=== PATIENT | female | born 1945 | race Caucasian/White ===

== ENCOUNTER 2019-03-09 16:02 | Inpatient (IN) | payer MEDICARE ==
[~2019-03-09] VITALS: Ht 165.1 cm; Wt 82.2 kg
--- NOTE | 2019-03-09 16:20 | PHYS DOC ---
Past History Past Medical History: Anemia, Anxiety, Dementia, Depression, UTI, Other (JASON MARTINEZ MD) Adult General Chief Complaint Chief Complaint: PSYCH EVALUATION [facility] HPI Patient is a 73-year-old female who presents from nursing facility with report of behavioral disturbance. Patient has been accepted to [facility] and is just here for medical clearance. Patient denies any complaints, denying chest pain, shortness of breath, abdominal pain, nausea, vomiting, diarrhea or headache.[] (JENNY MURRY Jr., DO) Review of Systems Review of Systems Constitutional: Denies fever or chills [] Respiratory: Denies cough or shortness of breath [] Cardiovascular: No additional information not addressed in HPI [] Musculoskeletal: Denies back pain or joint pain [] Integument: Denies rash or skin lesions [] Neurologic: Denies headache, focal weakness or sensory changes [] All other systems were reviewed and found to be within normal limits, except as documented in this note. (JENNY MURRY Jr., DO) Physical Exam Physical Exam Constitutional: Well developed, well nourished, no acute distress, non-toxic appearance. [] HENT: Normocephalic, atraumatic, bilateral external ears normal, oropharynx moist, no oral exudates, nose normal. [] Eyes: PERRLA, EOMI, conjunctiva normal, no discharge. [] Neck: Normal range of motion, no tenderness, supple, no stridor. [] Cardiovascular:Heart rate regular rhythm, no murmur [] Lungs & Thorax: Bilateral breath sounds clear to auscultation [] Abdomen: Bowel sounds normal, soft, no tenderness. [] Skin: Warm, dry, no erythema, no rash. [] Extremities: No tenderness, no cyanosis, no clubbing, ROM intact, no edema. [] Neurologic: Alert and oriented X 3, no focal deficits noted. [] (JENNY MURRY Jr., DO) EKG EKG [] (JENNY MURRY Jr., DO) EKG My interpretation EKG shows a sinus rhythm at 68 bpm. Does have premature ventricular contractions. Has left axis. Has an incomplete right bundle branch block. But no findings acute STEMI with contralateral changes. (JASON MARTINEZ MD) Radiology/Procedures Radiology/Procedures [] (JENNY MURRY Jr., DO) Course & Med Decision Making Course & Med Decision Making Pertinent Labs and Imaging studies reviewed. (See chart for details) Patient moved to room upon arrival and bloodwork drawn for mental health clearance., A UA along with drug screen are pending and patient is being signed out to Dr. Martinez at 6:00 PM. (JENNY MURRY Jr., DO) Course & Med Decision Making Patient currently interactive and eating dinner. Patient has no complaints. Patient apparently sent to [place] for admission to the [facility] health unit after exacerbation of her behavior disorder. Patient sent from the [facility] in [facility]. Patient has been aggressive with other residents and staff. Patient has become more agitated. Has been refusing meds. Patient reportedly much more difficult to redirect. Insomnia worse. Patient does have history of mood disorder, dementia, insomnia, hypokalemia, falls, anemia, pulmonary embolism and UTIs. Patient reportedly has not had any recent falls. Normally follows with Dr. Mcdaniels. Impression: 1. Mental Status Change 2. Agitation 3. Behavior Disorder 4. Insomnia 5. Anxiety 6. Depression 7. Dementia 8. Possible UTI Pt. admitted to [facility]- Dr. Lockwood with Consult to Dr. Wheat for medical issues. (JASON MARTINEZ MD) Dragon Disclaimer Dragon Disclaimer This electronic medical record was generated, in whole or in part, using a voice recognition dictation system. (JENNY MURRY Jr., DO) Departure Departure: Referrals: DAVID MCDANIELS (PCP) Discharge Summary Visit Information Final Diagnosis Problems Medical Problems: (1) Aggressive behavior Status: Acute (JASON MARTINEZ MD) Brief Hospital Course Allergies Allergies Coded Allergies Type Severity Reaction Last Updated Verified No Known Drug Allergies 03/09/19 No Vital Signs Vital Signs Date Time Temp Pulse Resp B/P (MAP) Pulse Ox O2 Delivery O2 Flow Rate FiO2 03/09/19 20:41 98.3 88 20 151/89 (109) 99 Lab Results Laboratory Tests Test 03/09/19 16:21 03/09/19 18:05 White Blood Count 5.1 x10^3/uL (4.0-11.0) Red Blood Count 3.52 x10^6/uL (3.50-5.40) Hemoglobin 11.2 g/dL (12.0-15.5) Hematocrit 33.3 % (36.0-47.0) Mean Corpuscular Volume 95 fL (79-100) Mean Corpuscular Hemoglobin 32 pg (25-35) Mean Corpuscular Hemoglobin Concent 34 g/dL (31-37) Red Cell Distribution Width 15.6 % (11.5-14.5) Platelet Count 174 x10^3/uL (140-400) Neutrophils (%) (Auto) 69 % (31-73) Lymphocytes (%) (Auto) 21 % (24-48) Monocytes (%) (Auto) 8 % (0-9) Eosinophils (%) (Auto) 2 % (0-3) Basophils (%) (Auto) 1 % (0-3) Neutrophils # (Auto) 3.5 x10^3uL (1.8-7.7) Lymphocytes # (Auto) 1.1 x10^3/uL (1.0-4.8) Monocytes # (Auto) 0.4 x10^3/uL (0.0-1.1) Eosinophils # (Auto) 0.1 x10^3/uL (0.0-0.7) Basophils # (Auto) 0.0 x10^3/uL (0.0-0.2) Sodium Level 143 mmol/L (136-145) Potassium Level 4.1 mmol/L (3.5-5.1) Chloride Level 108 mmol/L (98-107) Carbon Dioxide Level 28 mmol/L (21-32) Anion Gap 7 (6-14) Blood Urea Nitrogen 26 mg/dL (7-20) Creatinine 0.8 mg/dL (0.6-1.0) Estimated GFR (Cockcroft-Gault) 69.9 BUN/Creatinine Ratio 33 (6-20) Glucose Level 106 mg/dL (70-99) Calcium Level 9.8 mg/dL (8.5-10.1) Total Bilirubin 0.3 mg/dL (0.2-1.0) Aspartate Amino Transf (AST/SGOT) 18 U/L (15-37) Alanine Aminotransferase (ALT/SGPT) 20 U/L (14-59) Alkaline Phosphatase 70 U/L (46-116) Total Protein 7.2 g/dL (6.4-8.2) Albumin 3.6 g/dL (3.4-5.0) Albumin/Globulin Ratio 1.0 (1.0-1.7) Ethyl Alcohol Level < 10 mg/dL (0-10) Urine Collection Type Unknown Urine Color Yellow Urine Clarity Hazy Urine pH 6.5 Urine Specific [place] 1.020 Urine Protein Neg (NEG-TRACE) Urine Glucose (UA) Neg mg/dL (NEG) Urine Ketones (Stick) Trace mg/dL (NEG) Urine Blood Trace (NEG) Urine Nitrite Pos (NEG) Urine Bilirubin Neg (NEG) Urine Urobilinogen Dipstick 0.2 mg/dL (0.2 mg/dL) Urine Leukocyte Esterase Neg (NEG) Urine RBC 0 /HPF (0-2) Urine WBC 0 /HPF (0-4) Urine Squamous Epithelial Cells Mod /LPF Urine Bacteria Mod /HPF (0-FEW) Urine Opiates Screen Neg (NEG) Urine Methadone Screen Neg (NEG) Urine Barbiturates Neg (NEG) Urine Phencyclidine Screen Neg (NEG) Urine Amphetamine/Methamphetamine Neg (NEG) Urine Benzodiazepines Screen Neg (NEG) Urine Cocaine Screen Neg (NEG) Urine Cannabinoids Screen Neg (NEG) Urine Ethyl Alcohol Neg (NEG) Brief Hospital Course Ms. Lowery is a 73 old female who presented with mental status change and behavior disorder. Admitted Dr. Lockwood and Consult Dr. Wheat. (JASON MARTINEZ MD) Discharge Information Dischare Medications Current Medications Acetaminophen (Tylenol) 650 mg BID PO Last administered on 03/09/19at 21:05; Start 03/09/19 at 21:00 Lorazepam (Ativan) 0.5 mg PRN Q6HRS PRN PO Mood disorder; Start 03/09/19 at 20:00 Al Hydroxide/Mg Hydroxide (Mylanta Plus Xs) 30 ml PRN Q4HRS PRN PO GERD; Start 03/09/19 at 20:00 Acetaminophen (Tylenol) 325 mg PRN Q8HRS PRN PO MILD PAIN 1-3; Start 03/09/19 at 20:45 Alendronate Sodium (Fosamax) 70 mg WEEKLYAC PO ; Start 03/16/19 at 07:00 Aspirin (Children'S Aspirin) 81 mg DAILY PO ; Start 03/10/19 at 09:00 Bisacodyl (Dulcolax Supp) 10 mg PRN Q12HR PRN [place] CONSTIPATION; Start 03/09/19 at 21:00 Calcium Carbonate/ Glycine (Tums) 500 mg PRN BID PRN PO GERD; Start 03/09/19 at 21:00 Artificial Tears (Refresh Classic) 1 drop PRN Q12HR PRN OU DRY EYE; Start 03/09/19 at 21:00 Citalopram Hydrobromide (CeleXA) 10 mg DAILY PO ; Start 03/10/19 at 09:00 Pantoprazole Sodium (Protonix) 40 mg DAILY PO ; Start 03/10/19 at 09:00 Multivitamins/ Calcium (Thera-M Plus) 1 tab DAILY PO ; Start 03/10/19 at 09:00 Trazodone HCl (Desyrel) 50 mg QHS PO Last administered on 03/09/19at 21:05; Start 03/09/19 at 21:00 Acetaminophen (Tylenol) 650 mg PRN Q6HRS PRN PO PAIN / TEMP; Start 03/09/19 at 22:15; Status UNV Multi-Ingredient Ointment (Analgesic [place]) 1 kevin PRN QID PRN TP MUSCLE PAIN; Start 03/09/19 at 22:15 Al Hydroxide/Mg Hydroxide (Mylanta Plus Xs) 15 ml PRN AFTMEALHC PRN PO DYSPEPSIA; Start 03/09/19 at 22:15; Status UNV Magnesium Hydroxide (Milk Of Magnesia) 2,400 mg PRN QHS PRN PO CONSTIPATION; Start 03/09/19 at 22:15 Levofloxacin (Levaquin) 500 mg DAILY06 PO ; Start 03/10/19 at 06:00; Stop 03/14/19 at 06:00; Status UNV Active Scripts Active Reported Tylenol (Acetaminophen) 325 Mg Tablet 650 Mg PO BID Tylenol (Acetaminophen) 325 Mg Capsule 325 Mg PO PRN Q8HRS PRN Tums (Calcium Carbonate) 300 Mg Tab.chew 500 Mg PO PRN BID PRN Trazodone Hcl 50 Mg Tablet 50 Mg PO QHS Multivitamins (Multivitamin) 1 Each Tablet 1 Each PO DAILY Maalox Maximum Strength Susp (Mag Hydrox/Al Hydrox/Simeth) 355 Ml Oral.susp 30 Ml PO PRN Q4HRS PRN Lansoprazole 30 Mg Capsule.dr 15 Mg PO DAILY Geodon (Ziprasidone Mesylate) 20 Mg Vial 0.5 Ml IM PRN Q6HRS PRN Escitalopram Oxalate 5 Mg Tablet 5 Mg PO DAILY Biscolax (Bisacodyl) 10 Mg Supp.rect 10 Mg RC PRN Q12HR PRN Ativan (Lorazepam) 1 Mg Tablet 0.5 Mg PO PRN Q6HRS PRN Aspirin 81 Mg Tab.chew 81 Mg PO DAILY Artificial Tears Drops (Dextran 70/Hypromellose/Pf) 1 Each Droperette 1 Each OU PRN Q12HR PRN Alendronate Sodium 70 Mg Tablet 70 Mg PO QWE (JASON MARTINEZ MD) Dragon Disclaimer This chart was dictated in whole or in part using Voice Recognition software in a busy, high-work load, and often noisy Emergency Department environment. It may contain unintended and wholly unrecognized errors or omissions. (JASON MARTINEZ MD) JENNY MURRY Jr. DO March 09, 2019 16:20 JASON MARTINEZ MD March 10, 2019 01:48
[2019-03-09 16:33] LABS: BASO % 1 % (0-3); EOS # 0.1 x10^3/uL (0.0-0.7); EOS % 2 % (0-3); HEMATOCRIT 33.3 % (36.0-47.0); HEMOGLOBIN 11.2 g/dL (12.0-15.5); LYMPH # 1.1 x10^3/uL (1.0-4.8); LYMPH % 21 % (24-48); MEAN CORPUSCULAR HEMOGLOBIN 32 pg (25-35); MEAN CORPUSCULAR HGB CONC 34 g/dL (31-37); MEAN CORPUSCULAR VOLUME 95 fL (79-100); MONO # 0.4 x10^3/uL (0.0-1.1); MONO % 8 % (0-9); NEUT # 3.5 x10^3uL (1.8-7.7); NEUT % 69 % (31-73); PLATELET COUNT 174 x10^3/uL (140-400); RED BLOOD COUNT 3.52 x10^6/uL (3.50-5.40); RED CELL DISTRIBUTION WIDTH 15.6 % (11.5-14.5); WHITE BLOOD COUNT 5.1 x10^3/uL (4.0-11.0)
--- NOTE | 2019-03-09 16:33 | EKG ---
[address] [address] Test Date: 2019-03-09 Test Time: 16:32:50 Pat Name: JENNIFER GARCIA Department: Room: Gender: F Director Of Health Care Marketing: CORRIE : 1945 Requested By: JENNY MURRY Order Number: [id number] Reading MD: Stiven Barrett Measurements Intervals [place] Rate: 68 P: 62 MD: 128 QRS: -8 QRSD: 94 T: 59 QT: 408 QTc: 439 Interpretive Statements SINUS RHYTHM VENTRICULAR PREMATURE COMPLEX(ES) LEFTWARD AXIS INCOMPLETE RIGHT BUNDLE BRANCH BLOCK ABNORMAL ECG Electronically Signed On 04-01-2019 12:08:38 CDT by Stiven Barrett
[2019-03-09 16:48] LABS: ALBUMIN 3.6 g/dL (3.4-5.0); CALCIUM 9.8 mg/dL (8.5-10.1); CREATININE 0.8 mg/dL (0.6-1.0); GFR 69.9; POTASSIUM 4.1 mmol/L (3.5-5.1); TOTAL BILIRUBIN 0.3 mg/dL (0.2-1.0); TOTAL PROTEIN 7.2 g/dL (6.4-8.2)
[2019-03-09] MEDS ORDERED: BISA10SU13 RC (18:04)
[2019-03-09] MEDS ORDERED: ESCITALOPRAM OXA5 MG PO (18:04)
[2019-03-09] MEDS ORDERED: LANS30CA PO (18:04)
[2019-03-09] MEDS ORDERED: ACET325T9 PO (18:04)
[2019-03-09] MEDS ORDERED: LORA-254 PO (18:04)
[2019-03-09] MEDS ORDERED: MULT1TAB52 PO (18:04)
[2019-03-09] MEDS ORDERED: ALEN70TA6 PO (18:04)
[2019-03-09] MEDS ORDERED: DEXT1DRO8 OU (18:04)
[2019-03-09] MEDS ORDERED: CALC300T5 PO (18:04)
[2019-03-09] MEDS ORDERED: ZIPR20VI IM (18:04)
[2019-03-09] MEDS ORDERED: MAG355OR12 PO (18:04)
[2019-03-09] MEDS ORDERED: ASPI-630 PO (18:04)
[2019-03-09] MEDS ORDERED: ACET325C5 PO (18:04)
[2019-03-09] MEDS ORDERED: TRAZ-120 PO (18:04)
[2019-03-09 18:34] LABS: AMPHETAMINE/METHAMPHETAMINE NEG (NEG); BARBITURATES NEG (NEG); BENZODIAZEPINES NEG (NEG); CANNABINOIDS NEG (NEG); COCAINE NEG (NEG); METHADONE NEG (NEG); OPIATES NEG (NEG); PHENCYCLIDINE NEG (NEG)
[2019-03-09 18:44] LABS: BACTERIA,URINE MOD /HPF (0-FEW); BILIRUBIN,URINE NEG (NEG); CLARITY,URINE HAZY; COLOR,URINE YELLOW; GLUCOSE,URINE NEG (NEG); NITRITE,URINE POS (NEG); RBC,URINE 0 /HPF (0-2); SQUAMOUS EPITHELIAL CELL,UR MOD /LPF; UROBILINOGEN,URINE 0.2 mg/dL (0.2 mg/dL); WBC,URINE 0 /HPF (0-4)
[2019-03-09] MEDS ORDERED: MAG HYDROX/AL HYDROX/SIMETH 30 ML ORAL.SUSP PO PRN ×2 (20:00→22:15)
[2019-03-09 20:41] VITALS: BP 151/89
[2019-03-09] MEDS ORDERED: ACETAMINOPHEN 325 MG TABLET PO PRN ×2 (20:45→22:15)
[2019-03-09] MEDS ORDERED: CALCIUM CARBONATE 500 MG TAB.CHEW PO PRN (21:00)
[2019-03-09] MEDS ORDERED: BISACODYL 10 MG SUPP.RECT PR PRN (21:00)
[2019-03-09] MEDS ORDERED: POLYVINYL ALCOHOL/POVIDONE/PF OPHTH SOLUTION DROPERETTE. OU PRN (21:00)
[2019-03-09] MEDS: traZODone 50 MG TABLET. PO SCH (21:05)
[2019-03-09] MEDS: ACETAMINOPHEN 325 MG TABLET PO SCH (21:05)
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
[2019-03-09] MEDS ORDERED: METHYL SALICYLATE/MENTHOL TOPICAL OINTMENT 29GM TUBE. TP PRN (22:15)
[2019-03-10 05:59] VITALS: BP 136/80
[2019-03-10] MEDS: levoFLOXacin 500 MG TABLET PO SCH (06:13)
[2019-03-10 07:35] LABS: BASO % 1 % (0-3); EOS # 0.1 x10^3/uL (0.0-0.7); EOS % 2 % (0-3); HEMATOCRIT 33.5 % (36.0-47.0); HEMOGLOBIN 11.4 g/dL (12.0-15.5); LYMPH % 23 % (24-48); MEAN CORPUSCULAR HEMOGLOBIN 32 pg (25-35); MEAN CORPUSCULAR HGB CONC 34 g/dL (31-37); MEAN CORPUSCULAR VOLUME 94 fL (79-100); MONO # 0.3 x10^3/uL (0.0-1.1); MONO % 8 % (0-9); NEUT % 67 % (31-73); PLATELET COUNT 169 x10^3/uL (140-400); RED BLOOD COUNT 3.55 x10^6/uL (3.50-5.40); RED CELL DISTRIBUTION WIDTH 15.1 % (11.5-14.5); WHITE BLOOD COUNT 4.5 x10^3/uL (4.0-11.0)
[2019-03-10 07:40] LABS: ALBUMIN 3.5 g/dL (3.4-5.0); CALCIUM 9.6 mg/dL (8.5-10.1); CREATININE 0.9 mg/dL (0.6-1.0); POTASSIUM 3.6 mmol/L (3.5-5.1); TOTAL BILIRUBIN 0.6 mg/dL (0.2-1.0); TOTAL PROTEIN 7.1 g/dL (6.4-8.2)
[2019-03-10] MEDS: MULTIVITAMIN with MINERAL TABLET. PO SCH (08:08)
[2019-03-10] MEDS: ACETAMINOPHEN 325 MG TABLET PO SCH ×2 (08:08→20:04)
[2019-03-10] MEDS: PANTOPRAZOLE 40 MG TABLET. PO SCH (08:09)
[2019-03-10] MEDS: CITALOPRAM 10 MG TABLET. PO SCH (08:09)
[2019-03-10] MEDS: ASPIRIN 81 MG TAB.CHEW PO SCH (08:09)
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
--- NOTE | 2019-03-10 11:31 | NUR ---
pt was in cafeteria this am upon assessment. pt would not tell me her name and but would just start rambling on about other things that do not make sense. pt was outside this morning before lunch and did participate with activities this morning. pt likes to wander around on the unit and can easily be redirected when needed. pt has not be combative thus far in the shift with care. pt was compliant with medications with encouragement. when talking with pt today, she is not able to answer questions but will ramble on about random things that are not related. will continue to monitor. shanda valdez.
[2019-03-10 13:47] LABS: THYROID STIM HORMONE (TSH) 2.782 uIU/mL (0.358-3.740)
[2019-03-10 15:55] VITALS: BP 153/96
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
[2019-03-10 19:11] LABS: THYROXINE 5.6 ug/dL (4.5-12.0)
[2019-03-10] MEDS: ZIPRASIDONE 20 MG CAPSULE. PO SCH (19:55)
[2019-03-10] MEDS: traZODone 50 MG TABLET. PO SCH (19:55)
[2019-03-10] MEDS: LACTOBACILLUS RHAMNOSUS GG 1 CAPSULE. PO SCH (20:04)
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
--- NOTE | 2019-03-11 04:55 | CONS ---
DATE OF CONSULTATION: 03/10/2019 REASON FOR CONSULTATION: For medical management. HISTORY OF PRESENT ILLNESS: The patient is a 73-year-old female patient, resident at [facility], who was admitted on account of throwing coffee at another resident following other residents and causing to be upset, pushing people in wheelchairs without their permission, combative with staff, all this in a background of dementia with depression. PAST MEDICAL HISTORY: Significant for anemia, gastroesophageal reflux disease, dry eye syndrome, chronic constipation, difficulty walking, cognitive communication deficits, generalized weakness. She is also known to have osteoarthritis, history of pulmonary embolism. PAST SURGICAL HISTORY: Significant for bilateral cataract extraction, hysterectomy. ALLERGIES: She has no known drug allergies. MEDICATIONS: She is currently on following medications: She is on aspirin 81 mg once a day, acetaminophen 650 mg twice a day, escitalopram oxalate 5 mg daily, trazodone 50 mg at bedtime, ziprasidone (Geodon) 20 mg, take half, 10 mg intramuscular every 6 hours, lorazepam 0.5 mg every 6 hours, artificial tears 1 drop to both eyes q. 12 hourly, calcium carbonate for Tums 500 mg p.o. b.i.d., Maalox 30 mL p.o. q. 4 hourly p.r.n., bisacodyl 10 mg every 12 hours, lansoprazole 15 mg p.o. daily, multivitamin 1 tablet once a day, alendronate 70 mg once a week. FAMILY HISTORY: Unobtainable. SOCIAL HISTORY: She is a resident at [facility]. She does not smoke, drink alcohol or use any recreational drugs. REVIEW OF SYSTEMS: Unobtainable. PHYSICAL EXAMINATION: GENERAL: When I saw her this afternoon, she was sitting comfortably in her chair, in no apparent respiratory distress. She was pale, but no jaundice or cyanosis. No lymphadenopathy, no thyromegaly. No jugular venous distension. No limb edema. VITAL SIGNS: Her heart rate was 69, blood pressure was 136/80, temperature was 97.8, respiratory rate 20, and oxygen saturation was 98%. HEAD, EYES, EARS, NOSE AND THROAT: Normocephalic, atraumatic. NECK: Supple. HEART: Showed normal first and second sounds. No gallop, rub or murmur. CHEST: Clear to auscultation. No crepitation or rhonchi. ABDOMEN: Slightly distended, soft, nontender. No guarding or rigidity. No organomegaly. Hernial orifice intact. Bowel sounds normal. NEUROLOGIC: She is demented, very confused, but without any obvious lateralizing sign. All her cranial nerves intact. EXTREMITIES: She moves extremities without difficulty. She ambulates without assistance or assistive devices. LABORATORY DATA: Her lab work showed a white cell count of 4500, hemoglobin 11.4, hematocrit 33.5, MCV 94 and platelet count of 169,000. Her chemistry showed a serum sodium 143, potassium 3.6, chloride 106, bicarbonate 24, and anion gap is 10, BUN is 22, creatinine 0.9, estimated GFR was 61 mL per minute. Her glucose was 138, calcium was 9.6, magnesium 2. Serum iron 80, TIBC 258 and iron saturation was 31%. Her total bilirubin, AST, ALT, alkaline phosphatase were normal. Total protein was 7.1, albumin 3.5. Her serum triglycerides were 70. Total cholesterol was 205, LDL cholesterol 125, VLDL was 14, and HDL cholesterol was 66, the ratio was 3 and TSH was 2.7892. Her urinalysis showed the urine was yellow, hazy with a pH of 6.5, specific gravity of 1.020. The urine was negative for protein, glucose. There was a trace of ketones, trace of blood, positive for nitrite, negative for bilirubin and leukocyte esterase. There was no rbc's, no wbc's, moderate amount of bacteria. Her toxic screen was essentially negative. IMPRESSION: In summary, this is a 73-year-old female patient, who reportedly throwing coffee at another resident following other residents and causing to be upset, pushing people in a wheelchair without their permission, combative with the staff, all this in a background of dementia with depression. Medically, she has multiple medical problems including gastroesophageal reflux disease, constipation, dry eye syndrome, osteoarthritis, hypokalemia, pulmonary embolism. All in all, she seemed to be medically stable. Thank you, Dr. Lockwood for allowing me to participate in the care of this patient. SHANTE BARRIENTOS MD DR: LYDIA/omer JOB#: [id number] / [id number]
[2019-03-11] MEDS: levoFLOXacin 500 MG TABLET PO SCH (05:06)
[2019-03-11 06:10] VITALS: BP 139/94
[2019-03-11] MEDS: LACTOBACILLUS RHAMNOSUS GG 1 CAPSULE. PO SCH ×2 (07:48→21:32)
[2019-03-11] MEDS: PANTOPRAZOLE 40 MG TABLET. PO SCH (07:48)
[2019-03-11] MEDS: MULTIVITAMIN with MINERAL TABLET. PO SCH (07:48)
[2019-03-11] MEDS: ACETAMINOPHEN 325 MG TABLET PO SCH ×2 (07:48→21:33)
[2019-03-11] MEDS: ASPIRIN 81 MG TAB.CHEW PO SCH (07:48)
[2019-03-11] MEDS: CITALOPRAM 10 MG TABLET. PO SCH (07:48)
--- NOTE | 2019-03-11 09:00 | NUR ---
Nursing Note: Assumed care of pt 0700. 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 Pt was tearful off and on, talking to herself, and pointing to various nurses during shift change report. During morning medication pass, pt was compliant w/ medications taken whole; however, confused at first as to what to do with her meds. Pt pushed the pills around in her hand at first then she put two in her mouth and began to chew them. Offered pt her drink and after a couple of times of placing drink in her hand she swallowed the pills. Pt swallowed remaining meds w/o issues. Pt is confused, alert to name only, and appears to become agitated by much stimulation.
--- NOTE | 2019-03-11 10:00 | NUR ---
SW left msg. for Agustina, nurses at [facility], to touch base regarding pt. progress and this SW contact information.
--- NOTE | 2019-03-11 10:30 | NUR ---
DANIEL received a return call from Michelle, nurse at [facility], checking in on pt. SW shared pt. has been displaying some behaviors and has spent time in the quiet hallway for safety reasons. Michelle reports she sent labs regarding crystals in pt. urine and wonders if pt. my have kidney stones, although there is no blood in her urine. DANIEL passed this information on to pt. nurse to discuss with the doctor.
[2019-03-11 11:08] LABS: HEMOGLOBIN A1C 5.4 % (4.8-5.6)
[2019-03-11 15:48] VITALS: BP 149/93
--- NOTE | 2019-03-11 18:31 | NUR ---
Nursing Note: Dr. Cordero given prelim results of Urine Culture. Pt is to remain on Levaquin until complete results of culture are back.
--- NOTE | 2019-03-11 20:55 | PN ---
DATE: 03/11/2019 SUBJECTIVE: The patient was seen today, met with the staff, chart reviewed. The patient's behavior improved slightly. The patient also has urinary tract infection. The patient is compliant with the treatment and current medications. Still tendency to wanders, still has some confusion. The patient also gets distracted easily, also having emotional lability. OBSERVATION: Vital signs: Temperature 97.8, blood pressure 136/80, pulse 69, respirations 20, O2 sat 98%. Slept about 5 hours last night. MEDICATIONS: The patient's current medications include Geodon 20 mg at night, Celexa 10 mg daily, trazodone 50 mg at night, lorazepam 0.5 mg q. 6h. p.r.n. LABORATORY DATA: The patient's lab reviewed. The patient has abnormal lipid profile. The patient's hemoglobin A1c was 5.4. Urinalysis was clear. ASSESSMENT: 1. Dementia, most likely Alzheimer's with mood swings and behavior problems. 2. Rule out bipolar disorder, mixed with psychotic symptoms. PLAN: Continue with the current treatment. LENGTH OF STAY: 7-10 days. TREVER COE MD DR: LUCILLE/omer JOB#: [id number] / [id number]
[2019-03-11] MEDS: traZODone 50 MG TABLET. PO SCH (21:32)
[2019-03-11] MEDS: ZIPRASIDONE 20 MG CAPSULE. PO SCH (21:32)
--- NOTE | 2019-03-12 01:41 | NUR ---
Nursing Note The patient was located in the day room for her medications and assessment. The patient was compliant and took her medications whole. The patient was interactive during her assessment but was disorganized. The patient is currently sleeping in her room.
[2019-03-12 05:46] VITALS: BP 128/83
[2019-03-12] MEDS: levoFLOXacin 500 MG TABLET PO SCH (06:00)
--- NOTE | 2019-03-12 07:30 | PSYEV ---
DATE OF SERVICE: ADDENDUM ADDENDUM FOR THE INITIAL PSYCHIATRIC EVALUATION AXIS I: Dementia, most likely Alzheimer's with confusion, psychosis and depression. AXIS II: Mood disorder, unspecified. AXIS III: Impulse control disorder, unspecified. AXIS IV: Gait impairment, anemia, gastroesophageal reflux disorder, unsteady gait, fall risk, chronic headaches, chronic pain syndrome. TREVER COE MD DR: LUCILLE/omer JOB#: [id number] / [id number]
[2019-03-12] MEDS: ACETAMINOPHEN 325 MG TABLET PO SCH ×2 (07:51→20:52)
[2019-03-12] MEDS: LACTOBACILLUS RHAMNOSUS GG 1 CAPSULE. PO SCH ×2 (07:51→20:52)
[2019-03-12] MEDS: ASPIRIN 81 MG TAB.CHEW PO SCH (07:51)
[2019-03-12] MEDS: PANTOPRAZOLE 40 MG TABLET. PO SCH (07:52)
[2019-03-12] MEDS: MULTIVITAMIN with MINERAL TABLET. PO SCH (07:52)
[2019-03-12] MEDS: CITALOPRAM 10 MG TABLET. PO SCH (07:52)
--- NOTE | 2019-03-12 09:30 | NUR ---
Activity Therapy Assessment: Pt was sitting down during the assessment. Pt was wearing clean clothes and her hair was neat. Pt was not able to remember her past, family and location of hospital stay. Pt was smiling throughout the assessment however she needed some indirection. Pt is able to ambulate without any devices and can verbally express herself. Pt will need help with some ADLs. Initial Treatment Goal: Pt enjoys engaging groups and will participate when engage. Pt tends to say yes allot when offered something to do. Pt goal will aim to increase recreation education and time management by engaging in at least four activity groups per week.
--- NOTE | 2019-03-12 11:00 | NUR ---
Nursing Note: Assumed care of pt approx 0700. Pt in day room at time of morning medication pass and assessment. Pt compliant w/ meds taken whole; however, nec to instruct pt numerous times to place pills in her mouth. Pt calm, compliant w/ assessment, & interactive. Pt spent time in the day room and even attempted to participate in exercise group w/ Sebastián our exercise therapist.
[2019-03-12 15:39] VITALS: BP 149/90
[2019-03-12] MEDS: traZODone 50 MG TABLET. PO SCH (20:52)
[2019-03-12] MEDS: ZIPRASIDONE 20 MG CAPSULE. PO SCH (20:52)
[2019-03-12] MEDS: LORazepam 0.5 MG TABLET PO PRN (22:39)
--- NOTE | 2019-03-12 22:49 | NUR ---
Nursing Note The patient was located in the day room for her medications and assessment. The patient was resistive with all cares and medications and was very irritable. The patient did eventually take her medications whole. The patient was only alert to her name but refused to state her last name. The patient received a PRN Ativan @ HS r/t agitation and aggression. The patient is currently laying in her bed.
[2019-03-13] MEDS: levoFLOXacin 500 MG TABLET PO SCH (05:54)
[2019-03-13 06:15] VITALS: BP 132/70
[2019-03-13] MEDS: LORazepam 0.5 MG TABLET PO PRN ×2 (07:55→11:50)
[2019-03-13] MEDS: ACETAMINOPHEN 325 MG TABLET PO SCH ×3 (09:00→21:00)
[2019-03-13] MEDS: ASPIRIN 81 MG TAB.CHEW PO SCH (09:00)
[2019-03-13] MEDS: LACTOBACILLUS RHAMNOSUS GG 1 CAPSULE. PO SCH ×3 (09:00→21:00)
[2019-03-13] MEDS: PANTOPRAZOLE 40 MG TABLET. PO SCH (09:00)
[2019-03-13] MEDS: MULTIVITAMIN with MINERAL TABLET. PO SCH (09:00)
--- NOTE | 2019-03-13 10:32 | NUR ---
When staff tried to get patient dressed for breakfast patient became combative and started hitting staff. The nurse then moved patient to secured hallway. Went to give patient PRN medications and patient refused. Patient went to lay down in the quiet room and is quietly resting, will continue to monitor. No signs of agitation noted at this time.
[2019-03-13] MEDS: CITALOPRAM 10 MG TABLET. PO SCH (11:42)
--- NOTE | 2019-03-13 11:50 | NUR ---
Patient started to be disruptive to morning group. Patient then took citalopram, PRN ativan @1150, and PRN zyprexa @1150, crushed with a bite of ice cream. Patient then went to lunch. Will continue to monitor.
--- NOTE | 2019-03-13 15:11 | NUR ---
Patient has been arguing with staff, hitting, biting, undressing. Phone call to Dr. Judi TURNER 5MG x1dose given @8109. Patient is now in the hallway having some quiet time. Will continue to monitor.
[2019-03-13] MEDS ORDERED: HALOPERIDOL LACT 5 MG/ML VIAL. IM ONE (15:15)
[2019-03-13 16:06] VITALS: BP 116/78
[2019-03-13] MEDS: traZODone 50 MG TABLET. PO SCH ×2 (20:22→21:00)
[2019-03-13] MEDS: ZIPRASIDONE 20 MG CAPSULE. PO SCH ×2 (20:23→21:00)
--- NOTE | 2019-03-14 00:15 | NUR ---
Nursing Note Pt is sleeping at shift change. Held meds secondary to somnolence.
[2019-03-14] MEDS: levoFLOXacin 500 MG TABLET PO SCH ×2 (05:13→15:12)
[2019-03-14 06:03] VITALS: BP 143/85
[2019-03-14 07:09] LABS: BASO % 1 % (0-3); EOS # 0.1 x10^3/uL (0.0-0.7); EOS % 3 % (0-3); HEMATOCRIT 35.2 % (36.0-47.0); HEMOGLOBIN 11.8 g/dL (12.0-15.5); LYMPH # 1.5 x10^3/uL (1.0-4.8); LYMPH % 29 % (24-48); MEAN CORPUSCULAR HEMOGLOBIN 31 pg (25-35); MEAN CORPUSCULAR HGB CONC 34 g/dL (31-37); MEAN CORPUSCULAR VOLUME 94 fL (79-100); MONO # 0.5 x10^3/uL (0.0-1.1); MONO % 10 % (0-9); NEUT # 2.9 x10^3uL (1.8-7.7); NEUT % 58 % (31-73); PLATELET COUNT 169 x10^3/uL (140-400); RED BLOOD COUNT 3.74 x10^6/uL (3.50-5.40); RED CELL DISTRIBUTION WIDTH 15.6 % (11.5-14.5)
[2019-03-14 07:34] LABS: ALBUMIN 3.5 g/dL (3.4-5.0); CALCIUM 9.4 mg/dL (8.5-10.1); GFR 54.1; POTASSIUM 3.9 mmol/L (3.5-5.1); TOTAL BILIRUBIN 0.6 mg/dL (0.2-1.0)
[2019-03-14] MEDS ORDERED: HALOPERIDOL LACT 5 MG/ML VIAL. IM SCH (09:00)
--- NOTE | 2019-03-14 09:00 | NUR ---
Nursing Note: Assumed care of pt approx 0700. Pt in day room at time of med pass. Pt compliant w/ meds taken whole, alert to self only, slightly anxious but cooperative. When asked if she has pain, pt pointed to her neck. Pt rec Tylenol 650mg scheduled daily; will continue to monitor. Pt has no bowel movement noted; MOM mixed with warmed prune juice and a scoop of zach ice cream given. Will continue to monitor.
[2019-03-14] MEDS: ASPIRIN 81 MG TAB.CHEW PO SCH (09:34)
[2019-03-14] MEDS: CITALOPRAM 10 MG TABLET. PO SCH (09:35)
[2019-03-14] MEDS: MULTIVITAMIN with MINERAL TABLET. PO SCH (09:35)
[2019-03-14] MEDS: PANTOPRAZOLE 40 MG TABLET. PO SCH (09:35)
[2019-03-14] MEDS: LACTOBACILLUS RHAMNOSUS GG 1 CAPSULE. PO SCH ×2 (09:35→20:00)
[2019-03-14] MEDS: ACETAMINOPHEN 325 MG TABLET PO SCH ×2 (09:35→20:00)
[2019-03-14] MEDS: MAGNESIUM HYDROXIDE 2,400 MG/30 ML ORAL.SUSP. PO PRN (09:40)
--- NOTE | 2019-03-14 15:04 | NUR ---
Nursing Note: Non administered pt's 0900 Haldol d/t pt appearing drowsy. Pt was underactive and less interactive, in as much as she can be; therefore, felt that it was best not to administer. Will continue to monitor.
--- NOTE | 2019-03-14 15:07 | NUR ---
Nursing Note: Pt has not been at all agitated today. Pt had an XL bowel movement as a result of drinking "Brown Cow."
[2019-03-14 16:37] VITALS: BP 117/77
[2019-03-14] MEDS: ZIPRASIDONE 20 MG CAPSULE. PO SCH (20:00)
[2019-03-14] MEDS: traZODone 50 MG TABLET. PO SCH (20:01)
--- NOTE | 2019-03-14 23:04 | PDOC ---
Exam Note: Guero Note: Please also refer to the separate dictated note~for this date of service dictated separately. Discussed the patient with Nursing staff reviewed the chart.~Reviewed interim history and current functioning. Reviewed vital signs,~Labs/ Radiology~and current medications noted below. Continue current treatment with the changes noted in the dictated addendum note Assessment: Vital Signs: Vital Signs Date Time Temp Pulse Resp B/P (MAP) Pulse Ox O2 Delivery O2 Flow Rate FiO2 03/14/19 16:37 97.4 65 20 117/77 (90) 95 03/12/19 15:39 Room Air I&O Intake and Output 03/14/19 06:59 Intake Total 480 ml Balance 480 ml Intake Oral 480 ml Labs: Laboratory Tests Test 03/14/19 06:55 White Blood Count 5.0 x10^3/uL (4.0-11.0) Red Blood Count 3.74 x10^6/uL (3.50-5.40) Hemoglobin 11.8 g/dL (12.0-15.5) L Hematocrit 35.2 % (36.0-47.0) L Mean Corpuscular Volume 94 fL (79-100) Mean Corpuscular Hemoglobin 31 pg (25-35) Mean Corpuscular Hemoglobin Concent 34 g/dL (31-37) Red Cell Distribution Width 15.6 % (11.5-14.5) H Platelet Count 169 x10^3/uL (140-400) Neutrophils (%) (Auto) 58 % (31-73) Lymphocytes (%) (Auto) 29 % (24-48) Monocytes (%) (Auto) 10 % (0-9) H Eosinophils (%) (Auto) 3 % (0-3) Basophils (%) (Auto) 1 % (0-3) Neutrophils # (Auto) 2.9 x10^3uL (1.8-7.7) Lymphocytes # (Auto) 1.5 x10^3/uL (1.0-4.8) Monocytes # (Auto) 0.5 x10^3/uL (0.0-1.1) Eosinophils # (Auto) 0.1 x10^3/uL (0.0-0.7) Basophils # (Auto) 0.0 x10^3/uL (0.0-0.2) Sodium Level 143 mmol/L (136-145) Potassium Level 3.9 mmol/L (3.5-5.1) Chloride Level 107 mmol/L (98-107) Carbon Dioxide Level 29 mmol/L (21-32) Anion Gap 7 (6-14) Blood Urea Nitrogen 26 mg/dL (7-20) H Creatinine 1.0 mg/dL (0.6-1.0) Estimated GFR (Cockcroft-Gault) 54.1 BUN/Creatinine Ratio 26 (6-20) H Glucose Level 87 mg/dL (70-99) Calcium Level 9.4 mg/dL (8.5-10.1) Total Bilirubin 0.6 mg/dL (0.2-1.0) Aspartate Amino Transferase (AST) 19 U/L (15-37) Alanine Aminotransferase (ALT) 23 U/L (14-59) Alkaline Phosphatase 68 U/L (46-116) Total Protein 7.0 g/dL (6.4-8.2) Albumin 3.5 g/dL (3.4-5.0) Albumin/Globulin Ratio 1.0 (1.0-1.7) Current Medications: Meds: Current Medications Acetaminophen (Tylenol) 650 mg BID PO Last administered on 03/14/19at 20:00; Start 03/09/19 at 21:00 Lorazepam (Ativan) 0.5 mg PRN Q6HRS PRN PO Mood disorder Last administered on 03/13/19at 11:50; Start 03/09/19 at 20:00 Al Hydroxide/Mg Hydroxide (Mylanta Plus Xs) 30 ml PRN Q4HRS PRN PO GERD; Start 03/09/19 at 20:00 Acetaminophen (Tylenol) 325 mg PRN Q8HRS PRN PO MILD PAIN 1-3; Start 03/09/19 at 20:45 Alendronate Sodium (Fosamax) 70 mg WEEKLYAC PO ; Start 03/16/19 at 07:00 Aspirin (Children'S Aspirin) 81 mg DAILY PO Last administered on 03/14/19at 09:34; Start 03/10/19 at 09:00 Bisacodyl (Dulcolax Supp) 10 mg PRN Q12HR PRN OR CONSTIPATION; Start 03/09/19 at 21:00 Calcium Carbonate/ Glycine (Tums) 500 mg PRN BID PRN PO GERD; Start 03/09/19 at 21:00 Artificial Tears (Refresh Classic) 1 drop PRN Q12HR PRN OU DRY EYE; Start 03/09/19 at 21:00 Citalopram Hydrobromide (CeleXA) 10 mg DAILY PO Last administered on 03/14/19 09:35; Start 03/10/19 at 09:00 Pantoprazole Sodium (Protonix) 40 mg DAILY PO Last administered on 03/14/19 09:35; Start 03/10/19 at 09:00 Multivitamins/ Calcium (Thera-M Plus) 1 tab DAILY PO Last administered on 03/14/19 09:35; Start 03/10/19 at 09:00 Trazodone HCl (Desyrel) 50 mg QHS PO Last administered on 03/14/19 20:01; Start 03/09/19 at 21:00 Acetaminophen (Tylenol) 650 mg PRN Q6HRS PRN PO PAIN / TEMP; Start 03/09/19 at 22:15; Status UNV Multi-Ingredient Ointment (Analgesic [place]) 1 kevin PRN QID PRN TP MUSCLE PAIN; Start 03/09/19 at 22:15 Al Hydroxide/Mg Hydroxide (Mylanta Plus Xs) 15 ml PRN AFTMEALHC PRN PO DYSPEPSIA; Start 03/09/19 at 22:15; Status UNV Magnesium Hydroxide (Milk Of Magnesia) 2,400 mg PRN QHS PRN PO CONSTIPATION Last administered on 03/14/19 09:40; Start 03/09/19 at 22:15 Levofloxacin (Levaquin) 500 mg DAILY06 PO Last administered on 03/13/19 05:54; Start 03/10/19 at 06:00; Stop 03/14/19 at 06:00; Status DC Lactobacillus Rhamnosus (Culturelle) 1 cap BID PO Last administered on 03/14/19 20:00; Start 03/10/19 at 21:00 Ziprasidone (Geodon) 20 mg QHS PO Last administered on 03/14/19 20:00; Start 03/10/19 at 21:00 Olanzapine (ZyPREXA ZYDIS) 2.5 mg PRN Q2HR PRN PO PSYCHOSIS Last administered on 5/19/19at 11:50; Start 03/12/19 at 23:45 Haloperidol Lactate (Haldol) 5 mg 1X ONCE IM Last administered on 03/13/19at 15:04; Start 03/13/19 at 15:15; Stop 03/13/19 at 15:16; Status DC Haloperidol Lactate (Haldol) 5 mg DAILY IM ; Start 03/14/19 at 09:00 Levofloxacin (Levaquin) 500 mg DAILY06 PO Last administered on 03/14/19at 15:12; Start 03/14/19 at 15:00; Stop 03/18/19 at 14:59 Active Scripts Active Reported Tylenol (Acetaminophen) 325 Mg Tablet 650 Mg PO BID Tylenol (Acetaminophen) 325 Mg Capsule 325 Mg PO PRN Q8HRS PRN Tums (Calcium Carbonate) 300 Mg Tab.chew 500 Mg PO PRN BID PRN Trazodone Hcl 50 Mg Tablet 50 Mg PO QHS Multivitamins (Multivitamin) 1 Each Tablet 1 Each PO DAILY Maalox Maximum Strength Susp (Mag Hydrox/Al Hydrox/Simeth) 355 Ml Oral.susp 30 Ml PO PRN Q4HRS PRN Lansoprazole 30 Mg Capsule.dr 15 Mg PO DAILY Geodon (Ziprasidone Mesylate) 20 Mg Vial 0.5 Ml IM PRN Q6HRS PRN Escitalopram Oxalate 5 Mg Tablet 5 Mg PO DAILY Biscolax (Bisacodyl) 10 Mg Supp.rect 10 Mg RC PRN Q12HR PRN Ativan (Lorazepam) 1 Mg Tablet 0.5 Mg PO PRN Q6HRS PRN Aspirin 81 Mg Tab.chew 81 Mg PO DAILY Artificial Tears Drops (Dextran 70/Hypromellose/Pf) 1 Each Droperette 1 Each OU PRN Q12HR PRN Alendronate Sodium 70 Mg Tablet 70 Mg PO QWE I have reviewed the current psychotropics carefully including drug interactions. Risk benefit ratio favors no change other than as noted in my dictated progress note. Diagnosis: Problems: (1) Dementia in Alzheimer's disease with delusions (2) Dementia in Alzheimer's disease with depression (3) Mood disorder (4) Impulse control disorder, unspecified (5) Impaired gait (6) Anemia (7) Gastroesophageal reflux disease KASSIDY POP MD March 14, 2019 23:04
--- NOTE | 2019-03-14 23:26 | NUR ---
Nursing note: Assumed care of pt in the day room where she was sitting at the table. She was pleasant but confused and compliant w/meds whole but acted like she didn't know what to do with them. No agitation at this time, no c/o pain.
[2019-03-15] MEDS: levoFLOXacin 500 MG TABLET PO SCH (05:04)
[2019-03-15 06:23] VITALS: BP 117/65
[2019-03-15] MEDS: ASPIRIN 81 MG TAB.CHEW PO SCH (08:37)
[2019-03-15] MEDS: LACTOBACILLUS RHAMNOSUS GG 1 CAPSULE. PO SCH ×2 (08:37→19:40)
[2019-03-15] MEDS: PANTOPRAZOLE 40 MG TABLET. PO SCH (08:37)
[2019-03-15] MEDS: CITALOPRAM 10 MG TABLET. PO SCH (08:37)
[2019-03-15] MEDS: ACETAMINOPHEN 325 MG TABLET PO SCH ×2 (08:37→19:40)
[2019-03-15] MEDS: MULTIVITAMIN with MINERAL TABLET. PO SCH (08:37)
--- NOTE | 2019-03-15 09:00 | NUR ---
Nursing Note: Assumed care of pt approx 0700. Pt resistive w/ staff in taking a shower. While in the shower pt spat on staff. Pt was reluctant to take her medications this morning. Pt was agitated and at first she just held the medication in her hand and spoke in a harsh tone to this nurse. Pt suffers with expressive aphasia and is alert to self to self only.
--- NOTE | 2019-03-15 15:47 | NUR ---
DANIEL received a call from pt. son, Sedrick Villalobos, to discuss pt. update after he spoke to pt. nurse. DANIEL discussed treatment team with Sedrick and will attempt to contact him during that meeting.
[2019-03-15 16:07] VITALS: BP 135/87
--- NOTE | 2019-03-15 17:01 | PN ---
DATE: 03/14/2019 This is a late entry, date of service 03/14/2019, covers elements not covered in my initial note. SUBJECTIVE: I met with the patient at length in the morning of 03/14/2019. Reviewed the patient's history from Dr. Wallace, since the patient was admitted during that time Dr. Wallace was covering for me. Briefly, the patient is a 73-year-old female from [facility], admitted with worsening confusion, agitation, aggression, after she was throwing coffee at another resident, following them around, causing them to be upset, pushing people in the wheelchairs without their permission, combative with staff. Per nursing report, she has had 2 good days. She slept 9 hours previous night. Two days ago she was hitting, yelling, refusing medications, but as I met with her the morning of 03/14/2019 she was seated in a chair, confused, confabulating. She denied any alcohol usage. Unable to tell me what kind of work she did before retiring. Reportedly, her son is very supportive and calls daily. She has had no bowel movement since the and we will address this symptomatically. She remains on Levaquin for her UTI. REVIEW OF SYSTEMS: No CV, , pulmonary, eye, ENT system symptoms on review. Reliability poor. MENTAL STATUS EXAM: Oriented to herself. Insight, judgment, recent and remote memory, attention, concentration, fund of knowledge poor, consistent with her diagnoses. IMPRESSION: Major neurocognitive disorder, Alzheimer, vascular with delusion, depression, behavioral disturbance; anxiety disorder, unspecified; impulse control disorder, unspecified; urinary tract infection. PLAN: Treat the UTI. Continue current psychotropics and she is on scheduled Haldol IM 5 mg daily, Celexa, trazodone, Geodon along with Zyprexa p.r.n., Ativan p.r.n. Adjust further as clinically indicated. KASSIDY POP MD DR: SCOTT/omer JOB#: [id number] / [id number]
[2019-03-15] MEDS: traZODone 50 MG TABLET. PO SCH (19:40)
[2019-03-15] MEDS: ZIPRASIDONE 20 MG CAPSULE. PO SCH (19:40)
--- NOTE | 2019-03-15 19:55 | PDOC ---
Exam Note: Guero Note: Admission Date: March 09, 2019 at 19:35 * A recertification for continued Inpatient Psychiatric Admission must be done on Day 12, Day 18 and Day 30. Please also refer to the separate dictated note~for this date of service dictated separately.~Patient seen individually. Discussed the patient with Nursing staff reviewed the chart.~Reviewed interim history and current functioning. Reviewed vital signs,~Labs/ Radiology~and current medications noted below. Continue current treatment with the changes noted in the dictated addendum note Assessment: Vital Signs: Vital Signs Date Time Temp Pulse Resp B/P (MAP) Pulse Ox O2 Delivery O2 Flow Rate FiO2 03/15/19 16:07 98.4 74 20 135/87 (103) 98 03/12/19 15:39 Room Air I&O Intake and Output 03/15/19 07:00 Intake Total 1080 ml Balance 1080 ml Intake Oral 1080 ml # Bowel Movements 1 Current Medications: Meds: Current Medications Acetaminophen (Tylenol) 650 mg BID PO Last administered on 03/15/19at 19:40; Start 03/09/19 at 21:00 Lorazepam (Ativan) 0.5 mg PRN Q6HRS PRN PO Mood disorder Last administered on 03/13/19at 11:50; Start 03/09/19 at 20:00 Al Hydroxide/Mg Hydroxide (Mylanta Plus Xs) 30 ml PRN Q4HRS PRN PO GERD; Start 03/09/19 at 20:00 Acetaminophen (Tylenol) 325 mg PRN Q8HRS PRN PO MILD PAIN 1-3; Start 03/09/19 at 20:45 Alendronate Sodium (Fosamax) 70 mg WEEKLYAC PO ; Start 03/16/19 at 07:00 Aspirin (Children'S Aspirin) 81 mg DAILY PO Last administered on 03/15/19at 08:37; Start 03/10/19 at 09:00 Bisacodyl (Dulcolax Supp) 10 mg PRN Q12HR PRN [place] CONSTIPATION; Start 03/09/19 at 21:00 Calcium Carbonate/ Glycine (Tums) 500 mg PRN BID PRN PO GERD; Start 03/09/19 at 21:00 Artificial Tears (Refresh Classic) 1 drop PRN Q12HR PRN OU DRY EYE; Start 03/09/19 at 21:00 Citalopram Hydrobromide (CeleXA) 10 mg DAILY PO Last administered on 03/15/19 08:37; Start 03/10/19 at 09:00 Pantoprazole Sodium (Protonix) 40 mg DAILY PO Last administered on 03/15/19 08:37; Start 03/10/19 at 09:00 Multivitamins/ Calcium (Thera-M Plus) 1 tab DAILY PO Last administered on 03/15/19 08:37; Start 03/10/19 at 09:00 Trazodone HCl (Desyrel) 50 mg QHS PO Last administered on 03/15/19 19:40; Start 03/09/19 at 21:00 Acetaminophen (Tylenol) 650 mg PRN Q6HRS PRN PO PAIN / TEMP; Start 03/09/19 at 22:15; Status UNV Multi-Ingredient Ointment (Analgesic [place]) 1 kevin PRN QID PRN TP MUSCLE PAIN; Start 03/09/19 at 22:15 Al Hydroxide/Mg Hydroxide (Mylanta Plus Xs) 15 ml PRN AFTMEALHC PRN PO D YSPEPSIA; Start 03/09/19 at 22:15; Status UNV Magnesium Hydroxide (Milk Of Magnesia) 2,400 mg PRN QHS PRN PO CONSTIPATION Last administered on 03/14/19 09:40; Start 03/09/19 at 22:15 Levofloxacin (Levaquin) 500 mg DAILY06 PO Last administered on 03/13/19 05:54; Start 03/10/19 at 06:00; Stop 03/14/19 at 06:00; Status DC Lactobacillus Rhamnosus (Culturelle) 1 cap BID PO Last administered on 03/15/19at 19:40; Start 03/10/19 at 21:00 Ziprasidone (Geodon) 20 mg QHS PO Last administered on 03/14/19 20:00; Start 03/10/19 at 21:00; Stop 03/15/19 at 17:23; Status DC Olanzapine (ZyPREXA ZYDIS) 2.5 mg PRN Q2HR PRN PO PSYCHOSIS Last administered on 03/13/19 11:50; Start 03/12/19 at 23:45 Haloperidol Lactate (Haldol) 5 mg 1X ONCE IM Last administered on 5/19/19at 15:04; Start 03/13/19 at 15:15; Stop 03/13/19 at 15:16; Status DC Haloperidol Lactate (Haldol) 5 mg DAILY IM ; Start 03/14/19 at 09:00; Stop 03/15/19 at 17:23; Status DC Levofloxacin (Levaquin) 500 mg DAILY06 PO Last administered on 03/15/19at 05:04; Start 03/14/19 at 15:00; Stop 03/18/19 at 14:59 Ziprasidone (Geodon) 20 mg BID PO Last administered on 03/15/19at 19:40; Start 03/15/19 at 21:00 Active Scripts Active Reported Tylenol (Acetaminophen) 325 Mg Tablet 650 Mg PO BID Tylenol (Acetaminophen) 325 Mg Capsule 325 Mg PO PRN Q8HRS PRN Tums (Calcium Carbonate) 300 Mg Tab.chew 500 Mg PO PRN BID PRN Trazodone Hcl 50 Mg Tablet 50 Mg PO QHS Multivitamins (Multivitamin) 1 Each Tablet 1 Each PO DAILY Maalox Maximum Strength Susp (Mag Hydrox/Al Hydrox/Simeth) 355 Ml Oral.susp 30 Ml PO PRN Q4HRS PRN Lansoprazole 30 Mg Capsule.dr 15 Mg PO DAILY Geodon (Ziprasidone Mesylate) 20 Mg Vial 0.5 Ml IM PRN Q6HRS PRN Escitalopram Oxalate 5 Mg Tablet 5 Mg PO DAILY Biscolax (Bisacodyl) 10 Mg Supp.rect 10 Mg RC PRN Q12HR PRN Ativan (Lorazepam) 1 Mg Tablet 0.5 Mg PO PRN Q6HRS PRN Aspirin 81 Mg Tab.chew 81 Mg PO DAILY Artificial Tears Drops (Dextran 70/Hypromellose/Pf) 1 Each Droperette 1 Each OU PRN Q12HR PRN Alendronate Sodium 70 Mg Tablet 70 Mg PO QWE I have reviewed the current psychotropics carefully including drug interactions. Risk benefit ratio favors no change other than as noted in my dictated progress note. Diagnosis: Problems: (1) Gastroesophageal reflux disease (2) Mood disorder (3) Anemia (4) Impulse control disorder, unspecified (5) Impaired gait (6) Dementia in Alzheimer's disease with depression (7) Dementia in Alzheimer's disease with delusions KASSIDY POP MD March 15, 2019 19:55
--- NOTE | 2019-03-15 22:05 | NUR ---
Nursing note: Assumed care of pt in the day room. She was lying on a couch but was awake. She was pleasant and agreeable, sitting up for meds and assessment. She stated she had pain in her shoulder/neck area and I rubbed it for her. She also got scheduled tylenol. Pt was appreciative. Alert to self only.
[2019-03-16] MEDS: levoFLOXacin 500 MG TABLET PO SCH (05:41)
[2019-03-16 06:18] VITALS: BP 113/77
[2019-03-16] MEDS: ACETAMINOPHEN 325 MG TABLET PO SCH ×2 (07:48→19:17)
[2019-03-16] MEDS: MULTIVITAMIN with MINERAL TABLET. PO SCH (07:48)
[2019-03-16] MEDS: ASPIRIN 81 MG TAB.CHEW PO SCH (07:49)
[2019-03-16] MEDS: ALENDRONATE SODIUM 35 MG TABLET PO SCH (07:49)
[2019-03-16] MEDS: ZIPRASIDONE 20 MG CAPSULE. PO SCH ×2 (07:49→19:16)
[2019-03-16] MEDS: LACTOBACILLUS RHAMNOSUS GG 1 CAPSULE. PO SCH ×2 (07:49→19:16)
[2019-03-16] MEDS: PANTOPRAZOLE 40 MG TABLET. PO SCH (07:49)
[2019-03-16] MEDS: CITALOPRAM 10 MG TABLET. PO SCH (07:49)
[2019-03-16 15:59] VITALS: BP 130/76
--- NOTE | 2019-03-16 16:49 | NUR ---
Patient has been disorganized, but calm and pleasantly confused throughout this shift. She has been compliant with medications and assessments. will continue to monitor.
[2019-03-16] MEDS: traZODone 50 MG TABLET. PO SCH (19:16)
--- NOTE | 2019-03-16 20:55 | PN ---
DATE: 03/15/2019 PSYCHIATRIC PROGRESS NOTE This late entry 03/15/2019 covers elements not covered in my initial note. SUBJECTIVE: I met with the patient in the evening of 03/15/2019. The patient remains confused, anxious, resistive to shower, spitting at staff around her. She does have a UTI, is on Levaquin up to the 03/18/2019. We will discontinue the IM Haldol scheduled. REVIEW OF SYSTEMS: No CV, , pulmonary, eye, ENT system symptoms on review. Reliability poor. MENTAL STATUS EXAM: Oriented to herself. Insight, judgment, recent and remote memory, attention, concentration, fund of knowledge poor, consistent with her diagnosis mentioned in my initial note. PLAN: Increase Geodon from 20 mg at bedtime to 20 mg twice a day. Continue rest unchanged for now. MAN Jose Maria POP MD DR: SCOTT/omre JOB#: [id number] / [id number]
--- NOTE | 2019-03-16 21:58 | PDOC ---
Exam Note: Guero Note: Please also refer to the separate dictated note~for this date of service dictated separately.~Patient seen individually. Discussed the patient with Nursing staff reviewed the chart.~Reviewed interim history and current functioning. Reviewed vital signs,~Labs/ Radiology~and current medications noted below. Continue current treatment with the changes noted in the dictated addendum note Assessment: Vital Signs: Vital Signs Date Time Temp Pulse Resp B/P (MAP) Pulse Ox O2 Delivery O2 Flow Rate FiO2 03/16/19 15:59 97.9 56 16 130/76 (94) 97 03/12/19 15:39 Room Air I&O Intake and Output 03/16/19 07:00 Intake Total 1320 ml Balance 1320 ml Intake Oral 1320 ml Current Medications: Meds: Current Medications Acetaminophen (Tylenol) 650 mg BID PO Last administered on 03/16/19at 19:17; Start 03/09/19 at 21:00 Lorazepam (Ativan) 0.5 mg PRN Q6HRS PRN PO Mood disorder Last administered on 03/13/19at 11:50; Start 03/09/19 at 20:00 Al Hydroxide/Mg Hydroxide (Mylanta Plus Xs) 30 ml PRN Q4HRS PRN PO GERD; Start 03/09/19 at 20:00 Acetaminophen (Tylenol) 325 mg PRN Q8HRS PRN PO MILD PAIN 1-3; Start 03/09/19 at 20:45 Alendronate Sodium (Fosamax) 70 mg WEEKLYAC PO Last administered on 03/16/19at 07:49; Start 03/16/19 at 07:00 Aspirin (Children'S Aspirin) 81 mg DAILY PO Last administered on 03/16/19at 07:49; Start 03/10/19 at 09:00 Bisacodyl (Dulcolax Supp) 10 mg PRN Q12HR PRN [place] CONSTIPATION; Start 03/09/19 at 21:00 Calcium Carbonate/ Glycine (Tums) 500 mg PRN BID PRN PO GERD; Start 03/09/19 at 21:00 Artificial Tears (Refresh Classic) 1 drop PRN Q12HR PRN OU DRY EYE; Start 03/09/19 at 21:00 Citalopram Hydrobromide (CeleXA) 10 mg DAILY PO Last administered on 03/16/19at 07:49; Start 03/10/19 at 09:00 Pantoprazole Sodium (Protonix) 40 mg DAILY PO Last administered on 03/16/19 07:49; Start 03/10/19 at 09:00 Multivitamins/ Calcium (Thera-M Plus) 1 tab DAILY PO Last administered on 03/16/19 07:48; Start 03/10/19 at 09:00 Trazodone HCl (Desyrel) 50 mg QHS PO Last administered on 03/16/19at 19:16; Start 03/09/19 at 21:00 Acetaminophen (Tylenol) 650 mg PRN Q6HRS PRN PO PAIN / TEMP; Start 03/09/19 at 22:15; Status UNV Multi-Ingredient Ointment (Analgesic [place]) 1 kevin PRN QID PRN TP MUSCLE PAIN; Start 03/09/19 at 22:15 Al Hydroxide/Mg Hydroxide (Mylanta Plus Xs) 15 ml PRN AFTMEALHC PRN PO DYSPEPSIA; Start 03/09/19 at 22:15; Status UNV Magnesium Hydroxide (Milk Of Magnesia) 2,400 mg PRN QHS PRN PO CONSTIPATION Last administered on 03/14/19 09:40; Start 03/09/19 at 22:15 Levofloxacin (Levaquin) 500 mg DAILY06 PO Last administered on 03/13/19at 05:54; Start 03/10/19 at 06:00; Stop 03/14/19 at 06:00; Status DC Lactobacillus Rhamnosus (Culturelle) 1 cap BID PO Last administered on 03/16/19at 19:16; Start 03/10/19 at 21:00 Ziprasidone (Geodon) 20 mg QHS PO Last administered on 03/14/19at 20:00; Start 03/10/19 at 21:00; Stop 03/15/19 at 17:23; Status DC Olanzapine (ZyPREXA ZYDIS) 2.5 mg PRN Q2HR PRN PO PSYCHOSIS Last administered on 03/13/19 11:50; Start 03/12/19 at 23:45 Haloperidol Lactate (Haldol) 5 mg 1X ONCE IM Last administered on 03/13/19 15 :04; Start 03/13/19 at 15:15; Stop 03/13/19 at 15:16; Status DC Haloperidol Lactate (Haldol) 5 mg DAILY IM ; Start 03/14/19 at 09:00; Stop 03/15/19 at 17:23; Status DC Levofloxacin (Levaquin) 500 mg DAILY06 PO Last administered on 03/16/19at 05:41; Start 03/14/19 at 15:00; Stop 03/18/19 at 14:59 Ziprasidone (Geodon) 20 mg BID PO Last administered on 03/16/19at 19:16; Start 03/15/19 at 21:00 Active Scripts Active Reported Tylenol (Acetaminophen) 325 Mg Tablet 650 Mg PO BID Tylenol (Acetaminophen) 325 Mg Capsule 325 Mg PO PRN Q8HRS PRN Tums (Calcium Carbonate) 300 Mg Tab.chew 500 Mg PO PRN BID PRN Trazodone Hcl 50 Mg Tablet 50 Mg PO QHS Multivitamins (Multivitamin) 1 Each Tablet 1 Each PO DAILY Maalox Maximum Strength Susp (Mag Hydrox/Al Hydrox/Simeth) 355 Ml Oral.susp 30 Ml PO PRN Q4HRS PRN Lansoprazole 30 Mg Capsule.dr 15 Mg PO DAILY Geodon (Ziprasidone Mesylate) 20 Mg Vial 0.5 Ml IM PRN Q6HRS PRN Escitalopram Oxalate 5 Mg Tablet 5 Mg PO DAILY Biscolax (Bisacodyl) 10 Mg Supp.rect 10 Mg RC PRN Q12HR PRN Ativan (Lorazepam) 1 Mg Tablet 0.5 Mg PO PRN Q6HRS PRN Aspirin 81 Mg Tab.chew 81 Mg PO DAILY Artificial Tears Drops (Dextran 70/Hypromellose/Pf) 1 Each Droperette 1 Each OU PRN Q12HR PRN Alendronate Sodium 70 Mg Tablet 70 Mg PO QWE I have reviewed the current psychotropics carefully including drug interactions. Risk benefit ratio favors no change other than as noted in my dictated progress note. Diagnosis: Problems: (1) Anemia (2) Impulse control disorder, unspecified (3) Dementia in Alzheimer's disease with depression (4) Dementia in Alzheimer's disease with delusions (5) Mood disorder KASSIDY POP MD March 16, 2019 21:58
--- NOTE | 2019-03-16 22:44 | NUR ---
Nursing note: Assumed care of pt in the day room where she was standing and looking out the window. They had just brought her iin from the patio. She was confused but pleasant. Pt was compliant with meds but has to be directed as to how to take them. She plays with them until you tell her to put them in her mouth. No agitation noted, no c/o pain at this time. Alert to name only.
[2019-03-17] MEDS: levoFLOXacin 500 MG TABLET PO SCH (04:50)
[2019-03-17] MEDS: ACETAMINOPHEN 325 MG TABLET PO SCH ×2 (04:51→20:14)
[2019-03-17 05:46] VITALS: BP 118/79
[2019-03-17] MEDS: ZIPRASIDONE 20 MG CAPSULE. PO SCH ×2 (07:45→20:13)
[2019-03-17] MEDS: CITALOPRAM 10 MG TABLET. PO SCH (07:46)
[2019-03-17] MEDS: ASPIRIN 81 MG TAB.CHEW PO SCH (07:46)
[2019-03-17] MEDS: PANTOPRAZOLE 40 MG TABLET. PO SCH (07:46)
[2019-03-17] MEDS: LACTOBACILLUS RHAMNOSUS GG 1 CAPSULE. PO SCH ×2 (07:46→20:13)
[2019-03-17] MEDS: MULTIVITAMIN with MINERAL TABLET. PO SCH (07:46)
--- NOTE | 2019-03-17 09:41 | NUR ---
WEEKLY ACTIVITY THERAPY NOTE Date of Admission: 03/09/2019 Date of AT Assessment: 03/12/2019 Goal aimed: to increase time management and recreation education. Initial goal: Pt will participate in at least four activity therapy groups per week. Weekly progress towards goal: on track Group participation level: minimal to moderate Weekly highlights: enjoyed balloon volleyball on Thursday afternoon-smiling while participating, danced Thursday morning Behaviors observed: wanders the unit, stands in the middle of group, disruptive on Thursday and Thursday during groups- interupting, trying to talk to others but slight word salad Plan: no change to goal Beneficial adaptations: use of pool noodles/ balloons to increase engagement, positive response to demonstrations, and music
--- NOTE | 2019-03-17 12:38 | NUR ---
DANIEL left msg. for MAYTE Franco at [facility], to discuss pt. progress and tentative discharge on 03/25/2019.
--- NOTE | 2019-03-17 12:39 | NUR ---
WEEKLY NOTE Pt. son, Sedrick Villalobos, was contacted for treatment team. Pt. has been eating 92% of her meals and sleeps an average of 6 hours. Pt. has been complaint with medications taken whole, disorganized, and confused. Pt. has been complaining of left shoulder pain. Pt. often wanders the unit but has not been agitated or aggressive in recent days. Pt. has minimum to moderate participation in groups. Medications continue to be adjusted and monitored. Pt. is tentatively scheduled to discharge on 03/25/2019.
--- NOTE | 2019-03-17 14:08 | NUR ---
DANIEL spoke to Nehemiah, nurse at [facility], regarding pt. progress and discharge scheduled for 03/25/2019. DANIEL will fax updated pt. paperwork next week and solidify discharge plans.
[2019-03-17 15:32] VITALS: BP 145/92
--- NOTE | 2019-03-17 18:00 | NUR ---
Patient has been disorganized, but calm and pleasantly confused throughout this shift. She has been compliant with medications and assessments. Previous shift reported patient had a fever this morning that was resolved with a dose of acetaminophen. MD notified, new orders received will continue to monitor and report to oncoming shift.
[2019-03-17] MEDS: traZODone 50 MG TABLET. PO SCH (20:14)
[2019-03-17 20:30] LABS: BILIRUBIN,URINE NEG (NEG); CLARITY,URINE CLEAR; COLOR,URINE AMBER; GLUCOSE,URINE 100 mg/dL (NEG); NITRITE,URINE NEG (NEG); RBC,URINE 0 /HPF (0-2); UROBILINOGEN,URINE 0.2 mg/dL (0.2 mg/dL); WBC,URINE 0 /HPF (0-4)
[2019-03-17 20:31] LABS: BACTERIA,URINE 0 /HPF (0-FEW); SQUAMOUS EPITHELIAL CELL,UR OCC /LPF
--- NOTE | 2019-03-17 22:25 | PDOC ---
Exam Note: Guero Note: Please also refer to the separate dictated note~for this date of service dictated separately.~Patient seen individually. Discussed the patient with Nursing staff reviewed the chart.~Reviewed interim history and current functioning. Reviewed vital signs,~Labs/ Radiology~and current medications noted below. Continue current treatment with the changes noted in the dictated addendum note Assessment: Vital Signs: Vital Signs Date Time Temp Pulse Resp B/P (MAP) Pulse Ox O2 Delivery O2 Flow Rate FiO2 03/17/19 15:32 98.3 70 18 145/92 (109) 93 03/12/19 15:39 Room Air I&O Intake and Output 03/17/19 06:59 Intake Total 960 ml Balance 960 ml Intake Oral 960 ml # Voids 1 Labs: Laboratory Tests Test 03/17/19 20:11 Urine Collection Type Unknown Urine Color Esha Urine Clarity Clear Urine pH 6.0 Urine Specific [place] 1.025 Urine Protein 30 mg/dl (NEG-TRACE) Urine Glucose (UA) 100 mg/dL (NEG) Urine Ketones (Stick) Neg mg/dL (NEG) Urine Blood Neg (NEG) Urine Nitrite Neg (NEG) Urine Bilirubin Neg (NEG) Urine Urobilinogen Dipstick 0.2 mg/dL (0.2 mg/dL) Urine Leukocyte Esterase Neg (NEG) Urine RBC 0 /HPF (0-2) Urine WBC 0 /HPF (0-4) Urine Squamous Epithelial Cells Occ /LPF Urine Bacteria 0 /HPF (0-FEW) Current Medications: Meds: Current Medications Acetaminophen (Tylenol) 650 mg BID PO Last administered on 03/17/19at 20:14; Start 03/09/19 at 21:00 Lorazepam (Ativan) 0.5 mg PRN Q6HRS PRN PO Mood disorder Last administered on 03/13/19at 11:50; Start 03/09/19 at 20:00 Al Hydroxide/Mg Hydroxide (Mylanta Plus Xs) 30 ml PRN Q4HRS PRN PO GERD; Start 03/09/19 at 20:00 Acetaminophen (Tylenol) 325 mg PRN Q8HRS PRN PO MILD PAIN 1-3; Start 03/09/19 at 20:45 Alendronate Sodium (Fosamax) 70 mg WEEKLYAC PO Last administered on 03/16/19at 07:49; Start 03/16/19 at 07:00 Aspirin (Children'S Aspirin) 81 mg DAILY PO Last administered on 03/17/19 07:46; Start 03/10/19 at 09:00 Bisacodyl (Dulcolax Supp) 10 mg PRN Q12HR PRN [place] CONSTIPATION; Start 03/09/19 at 21:00 Calcium Carbonate/ Glycine (Tums) 500 mg PRN BID PRN PO GERD; Start 03/09/19 at 21:00 Artificial Tears (Refresh Classic) 1 drop PRN Q12HR PRN OU DRY EYE; Start 03/09/19 at 21:00 Citalopram Hydrobromide (CeleXA) 10 mg DAILY PO Last administered on 03/17/19 07:46; Start 03/10/19 at 09:00 Pantoprazole Sodium (Protonix) 40 mg DAILY PO Last administered on 03/17/19 07:46; Start 03/10/19 at 09:00 Multivitamins/ Calcium (Thera-M Plus) 1 tab DAILY PO Last administered on 03/17/19 07:46; Start 03/10/19 at 09:00 Trazodone HCl (Desyrel) 50 mg QHS PO Last administered on 03/17/19 20:14; Start 03/09/19 at 21:00 Acetaminophen (Tylenol) 650 mg PRN Q6HRS PRN PO PAIN / TEMP; Start 03/09/19 at 22:15; Status UNV Multi-Ingredient Ointment (Analgesic [place]) 1 kevin PRN QID PRN TP MUSCLE PAIN; Start 03/09/19 at 22:15 Al Hydroxide/Mg Hydroxide (Mylanta Plus Xs) 15 ml PRN AFTMEALHC PRN PO DYSPEPSIA; Start 03/09/19 at 22:15; Status UNV Magnesium Hydroxide (Milk Of Magnesia) 2,400 mg PRN QHS PRN PO CONSTIPATION Last administered on 03/14/19 09:40; Start 03/09/19 at 22:15 Levofloxacin (Levaquin) 500 mg DAILY06 PO Last administered on 03/13/19 05:54; Start 03/10/19 at 06:00; Stop 03/14/19 at 06:00; Status DC Lactobacillus Rhamnosus (Culturelle) 1 cap BID PO Last administered on 5/23/19at 20:13; Start 03/10/19 at 21:00 Ziprasidone (Geodon) 20 mg QHS PO Last administered on 03/14/19at 20:00; Start 03/10/19 at 21:00; Stop 03/15/19 at 17:23; Status DC Olanzapine (ZyPREXA ZYDIS) 2.5 mg PRN Q2HR PRN PO PSYCHOSIS Last administered on 03/13/19at 11:50; Start 03/12/19 at 23:45 Haloperidol Lactate (Haldol) 5 mg 1X ONCE IM Last administered on 03/13/19at 15:04; Start 03/13/19 at 15:15; Stop 03/13/19 at 15:16; Status DC Haloperidol Lactate (Haldol) 5 mg DAILY IM ; Start 03/14/19 at 09:00; Stop 03/15/19 at 17:23; Status DC Levofloxacin (Levaquin) 500 mg DAILY06 PO Last administered on 03/17/19at 04:50; Start 03/14/19 at 15:00; Stop 03/18/19 at 14:59 Ziprasidone (Geodon) 20 mg BID PO Last administered on 03/17/19at 20:13; Start 03/15/19 at 21:00 Active Scripts Active Reported Tylenol (Acetaminophen) 325 Mg Tablet 650 Mg PO BID Tylenol (Acetaminophen) 325 Mg Capsule 325 Mg PO PRN Q8HRS PRN Tums (Calcium Carbonate) 300 Mg Tab.chew 500 Mg PO PRN BID PRN Trazodone Hcl 50 Mg Tablet 50 Mg PO QHS Multivitamins (Multivitamin) 1 Each Tablet 1 Each PO DAILY Maalox Maximum Strength Susp (Mag Hydrox/Al Hydrox/Simeth) 355 Ml Oral.susp 30 Ml PO PRN Q4HRS PRN Lansoprazole 30 Mg Capsule.dr 15 Mg PO DAILY Geodon (Ziprasidone Mesylate) 20 Mg Vial 0.5 Ml IM PRN Q6HRS PRN Escitalopram Oxalate 5 Mg Tablet 5 Mg PO DAILY Biscolax (Bisacodyl) 10 Mg Supp.rect 10 Mg RC PRN Q12HR PRN Ativan (Lorazepam) 1 Mg Tablet 0.5 Mg PO PRN Q6HRS PRN Aspirin 81 Mg Tab.chew 81 Mg PO DAILY Artificial Tears Drops (Dextran 70/Hypromellose/Pf) 1 Each Droperette 1 Each OU PRN Q12HR PRN Alendronate Sodium 70 Mg Tablet 70 Mg PO QWE I have reviewed the current psychotropics carefully including drug interactions. Risk benefit ratio favors no change other than as noted in my dictated progress note. Diagnosis: Problems: (1) Mood disorder (2) Impulse control disorder, unspecified (3) Dementia in Alzheimer's disease with depression (4) Dementia in Alzheimer's disease with delusions KASSIDY POP MD March 17, 2019 22:25
--- NOTE | 2019-03-17 23:57 | NUR ---
Pt wandering in day room at shift change. Pt calm, pleasantly confused, and disorganized. Pt cooperative with assessment; initially very disorganized with medications and required multiple cues but did eventually take her medications whole. Repeat UA collected and sent to lab this shift.
[2019-03-18] MEDS: levoFLOXacin 500 MG TABLET PO SCH (05:01)
[2019-03-18 05:44] VITALS: BP 152/85
[2019-03-18 07:01] LABS: HEMOGLOBIN 11.8 g/dL (12.0-15.5); RED BLOOD COUNT 3.73 x10^6/uL (3.50-5.40); RED CELL DISTRIBUTION WIDTH 15.2 % (11.5-14.5); WHITE BLOOD COUNT 4.9 x10^3/uL (4.0-11.0)
[2019-03-18 07:17] LABS: ALBUMIN 3.3 g/dL (3.4-5.0); ALBUMIN/GLOBULIN RATIO 0.8 (1.0-1.7); CALCIUM 9.6 mg/dL (8.5-10.1); CREATININE 0.9 mg/dL (0.6-1.0); POTASSIUM 3.7 mmol/L (3.5-5.1); TOTAL BILIRUBIN 0.6 mg/dL (0.2-1.0); TOTAL PROTEIN 7.3 g/dL (6.4-8.2)
[2019-03-18] MEDS: ACETAMINOPHEN 325 MG TABLET PO SCH ×2 (08:25→19:44)
[2019-03-18] MEDS: CITALOPRAM 10 MG TABLET. PO SCH (08:25)
[2019-03-18] MEDS: ASPIRIN 81 MG TAB.CHEW PO SCH (08:25)
[2019-03-18] MEDS: MULTIVITAMIN with MINERAL TABLET. PO SCH (08:25)
[2019-03-18] MEDS: LACTOBACILLUS RHAMNOSUS GG 1 CAPSULE. PO SCH ×2 (08:25→19:44)
[2019-03-18] MEDS: ZIPRASIDONE 20 MG CAPSULE. PO SCH ×2 (08:25→19:44)
[2019-03-18] MEDS: PANTOPRAZOLE 40 MG TABLET. PO SCH (08:26)
--- NOTE | 2019-03-18 10:40 | RAD ---
Portable chest, 03/18/2019: HISTORY: Fever No previous chest radiographs are available at this time for comparison purposes. The heart is at the upper limits of normal in size. There is mild tortuosity of the thoracic aorta. The pulmonary vascularity is normal. There is minimal linear atelectasis or scarring in the left base. The lungs are otherwise clear. There is no evidence of pleural fluid. Scattered degenerative changes are evident in the spine. IMPRESSION: Minimal left basilar linear atelectasis or scarring. Electronically signed by: Bar Alcantara MD (03/18/2019 10:37 AM) [facility]
[2019-03-18 15:52] VITALS: BP 123/82
[2019-03-18] MEDS ORDERED: CHOLECALCIFEROL (VITAMIN D3) 50,000 UNIT CAPSULE PO SCH (16:00)
--- NOTE | 2019-03-18 16:36 | PN ---
DATE: 03/16/2019 PSYCHIATRIC PROGRESS NOTE This is a late entry 03/16/2019, covers elements not covered in my initial note. SUBJECTIVE: I met with the patient evening of 03/16/2019. The patient slept 7-1/4 hours previous night. She has had no overt behaviors, compliant, disorganized. Intermittent hallucinations noted. REVIEW OF SYSTEMS: No CV, , pulmonary, eye, ENT system symptoms on review. Reliability poor. MENTAL STATUS EXAM: Oriented to herself. Insight, judgment, recent and remote memory, attention, concentration, fund of knowledge poor, consistent with her diagnoses mentioned in my initial note. PLAN: No change from initial note. MAN Jose Maria POP MD DR: SCOTT/omer JOB#: [id number] / [id number]
--- NOTE | 2019-03-18 17:12 | NUR ---
pt up wandering in halls. was irritable after breakfast but self soothed and did not require PRNs. has been compliant with meds and cares.
[2019-03-18] MEDS: traZODone 50 MG TABLET. PO SCH (19:44)
--- NOTE | 2019-03-18 20:11 | PN ---
DATE: 03/17/2019 PSYCHIATRIC PROGRESS NOTE This late entry 03/17/2019 covers elements not covered in my initial note. SUBJECTIVE: I met with the patient in the evening, staffed at a treatment team meeting with the entire team in the morning. The patient's son, Bhavesh, attended the conference. Appetite 100%, sleeping 6 hours average. REVIEW OF SYSTEMS: Complains of left shoulder pain. Ambulates independently, compliant with medications, confused. REVIEW OF SYSTEMS: No CV, , pulmonary, eye, ENT system symptoms on review. MENTAL STATUS EXAM: Oriented to herself and situation. Insight, judgment, recent and remote memory, attention, concentration, fund of knowledge poor, consistent with her diagnosis mentioned in my initial note. She also has a urinary tract infection. PLAN: Continue Levaquin for UTI. Geodon was increased to 20 mg b.i.d. Maintain rest of the psychotropics unchanged for now. KASSIDY POP MD DR: SCOTT/omer JOB#: [id number] / [id number]
--- NOTE | 2019-03-18 22:05 | NUR ---
Pt sitting quietly in hallway at shift change. Pt calm, pleasantly confused, and interactive with staff and peers. Pt cooperative with assessment and compliant with medications administered whole although she did require some cueing to take her medications.
--- NOTE | 2019-03-18 22:34 | PDOC ---
Exam Note: Guero Note: Please also refer to the separate dictated note~for this date of service dictated separately.~Patient seen individually. Discussed the patient with Nursing staff reviewed the chart.~Reviewed interim history and current functioning. Reviewed vital signs,~Labs/ Radiology~and current medications noted below. Continue current treatment with the changes noted in the dictated addendum note Assessment: Vital Signs: Vital Signs Date Time Temp Pulse Resp B/P (MAP) Pulse Ox O2 Delivery O2 Flow Rate FiO2 03/18/19 15:52 97.5 78 20 123/82 (96) 96 03/12/19 15:39 Room Air I&O Intake and Output 03/18/19 06:59 Intake Total 1320 ml Balance 1320 ml Intake Oral 1320 ml # Voids 2 Labs: Laboratory Tests Test 03/18/19 06:50 White Blood Count 4.9 x10^3/uL (4.0-11.0) Red Blood Count 3.73 x10^6/uL (3.50-5.40) Hemoglobin 11.8 g/dL (12.0-15.5) L Hematocrit 35.0 % (36.0-47.0) L Mean Corpuscular Volume 94 fL (79-100) Mean Corpuscular Hemoglobin 32 pg (25-35) Mean Corpuscular Hemoglobin Concent 34 g/dL (31-37) Red Cell Distribution Width 15.2 % (11.5-14.5) H Platelet Count 155 x10^3/uL (140-400) Sodium Level 142 mmol/L (136-145) Potassium Level 3.7 mmol/L (3.5-5.1) Chloride Level 105 mmol/L (98-107) Carbon Dioxide Level 29 mmol/L (21-32) Anion Gap 8 (6-14) Blood Urea Nitrogen 17 mg/dL (7-20) Creatinine 0.9 mg/dL (0.6-1.0) Estimated GFR (Cockcroft-Gault) 61.0 BUN/Creatinine Ratio 19 (6-20) Glucose Level 105 mg/dL (70-99) H Calcium Level 9.6 mg/dL (8.5-10.1) Total Bilirubin 0.6 mg/dL (0.2-1.0) Aspartate Amino Transferase (AST) 16 U/L (15-37) Alanine Aminotransferase (ALT) 23 U/L (14-59) Alkaline Phosphatase 84 U/L (46-116) Total Protein 7.3 g/dL (6.4-8.2) Albumin 3.3 g/dL (3.4-5.0) L Albumin/Globulin Ratio 0.8 (1.0-1.7) L Current Medications: Meds: Current Medications Acetaminophen (Tylenol) 650 mg BID PO Last administered on 03/18/19 19:44; Start 03/09/19 at 21:00 Lorazepam (Ativan) 0.5 mg PRN Q6HRS PRN PO Mood disorder Last administered on 03/13/19at 11:50; Start 03/09/19 at 20:00 Al Hydroxide/Mg Hydroxide (Mylanta Plus Xs) 30 ml PRN Q4HRS PRN PO GERD; Start 03/09/19 at 20:00 Acetaminophen (Tylenol) 325 mg PRN Q8HRS PRN PO MILD PAIN 1-3; Start 03/09/19 at 20:45 Alendronate Sodium (Fosamax) 70 mg WEEKLYAC PO Last administered on 03/16/19at 07:49; Start 03/16/19 at 07:00 Aspirin (Children'S Aspirin) 81 mg DAILY PO Last administered on 03/18/19 08:25; Start 03/10/19 at 09:00 Bisacodyl (Dulcolax Supp) 10 mg PRN Q12HR PRN [place] CONSTIPATION; Start 03/09/19 at 21:00 Calcium Carbonate/ Glycine (Tums) 500 mg PRN BID PRN PO GERD; Start 03/09/19 at 21:00 Artificial Tears (Refresh Classic) 1 drop PRN Q12HR PRN OU DRY EYE; Start 03/09/19 at 21:00 Citalopram Hydrobromide (CeleXA) 10 mg DAILY PO Last administered on 03/18/19 08:25; Start 03/10/19 at 09:00 Pantoprazole Sodium (Protonix) 40 mg DAILY PO Last administered on 03/18/19 08:26; Start 03/10/19 at 09:00 Multivitamins/ Calcium (Thera-M Plus) 1 tab DAILY PO Last administered on 03/18/19at 08:25; Start 03/10/19 at 09:00 Trazodone HCl (Desyrel) 50 mg QHS PO Last administered on 03/18/19at 19:44; Start 03/09/19 at 21:00 Acetaminophen (Tylenol) 650 mg PRN Q6HRS PRN PO PAIN / TEMP; Start 03/09/19 at 22:15; Status UNV Multi-Ingredient Ointment (Analgesic [place]) 1 kevin PRN QID PRN TP MUSCLE PAIN; Start 03/09/19 at 22:15 Al Hydroxide/Mg Hydroxide (Mylanta Plus Xs) 15 ml PRN AFTMEALHC PRN PO DYSPEPSIA; Start 03/09/19 at 22:15; Status UNV Magnesium Hydroxide (Milk Of Magnesia) 2,400 mg PRN QHS PRN PO CONSTIPATION Last administered on 03/14/19at 09:40; Start 03/09/19 at 22:15 Levofloxacin (Levaquin) 500 mg DAILY06 PO Last administered on 03/13/19at 05:54; Start 03/10/19 at 06:00; Stop 03/14/19 at 06:00; Status DC Lactobacillus Rhamnosus (Culturelle) 1 cap BID PO Last administered on 03/18/19at 19:44; Start 03/10/19 at 21:00 Ziprasidone (Geodon) 20 mg QHS PO Last administered on 03/14/19at 20:00; Start 03/10/19 at 21:00; Stop 03/15/19 at 17:23; Status DC Olanzapine (ZyPREXA ZYDIS) 2.5 mg PRN Q2HR PRN PO PSYCHOSIS Last administered on 03/13/19at 11:50; Start 03/12/19 at 23:45 Haloperidol Lactate (Haldol) 5 mg 1X ONCE IM Last administered on 03/13/19at 15:04; Start 03/13/19 at 15:15; Stop 03/13/19 at 15:16; Status DC Haloperidol Lactate (Haldol) 5 mg DAILY IM ; Start 03/14/19 at 09:00; Stop 03/15/19 at 17:23; Status DC Levofloxacin (Levaquin) 500 mg DAILY06 PO Last administered on 03/18/19at 05:01; Start 03/14/19 at 15:00; Stop 03/18/19 at 14:59; Status DC Ziprasidone (Geodon) 20 mg BID PO Last administered on 03/18/19at 19:44; Start 03/15/19 at 21:00 Vitamin D (Vitamin D3) 50,000 unit WEEKLY PO ; Start 03/18/19 at 16:00; Stop 03/18/19 at 16:27; Status DC Vitamin D (Vitamin D3) 50,000 unit WEEKLY PO ; Start 03/19/19 at 09:00 Active Scripts Active Reported Tylenol (Acetaminophen) 325 Mg Tablet 650 Mg PO BID Tylenol (Acetaminophen) 325 Mg Capsule 325 Mg PO PRN Q8HRS PRN Tums (Calcium Carbonate) 300 Mg Tab.chew 500 Mg PO PRN BID PRN Trazodone Hcl 50 Mg Tablet 50 Mg PO QHS Multivitamins (Multivitamin) 1 Each Tablet 1 Each PO DAILY Maalox Maximum Strength Susp (Mag Hydrox/Al Hydrox/Simeth) 355 Ml Oral.susp 30 Ml PO PRN Q4HRS PRN Lansoprazole 30 Mg Capsule.dr 15 Mg PO DAILY Geodon (Ziprasidone Mesylate) 20 Mg Vial 0.5 Ml IM PRN Q6HRS PRN Escitalopram Oxalate 5 Mg Tablet 5 Mg PO DAILY Biscolax (Bisacodyl) 10 Mg Supp.rect 10 Mg RC PRN Q12HR PRN Ativan (Lorazepam) 1 Mg Tablet 0.5 Mg PO PRN Q6HRS PRN Aspirin 81 Mg Tab.chew 81 Mg PO DAILY Artificial Tears Drops (Dextran 70/Hypromellose/Pf) 1 Each Droperette 1 Each OU PRN Q12HR PRN Alendronate Sodium 70 Mg Tablet 70 Mg PO QWE I have reviewed the current psychotropics carefully including drug interactions. Risk benefit ratio favors no change other than as noted in my dictated progress note. Diagnosis: Problems: (1) Mood disorder (2) Impulse control disorder, unspecified (3) Dementia in Alzheimer's disease with depression (4) Dementia in Alzheimer's disease with delusions KASSIDY POP MD March 18, 2019 22:34
[2019-03-19 06:14] VITALS: BP 114/78
[2019-03-19] MEDS: CITALOPRAM 10 MG TABLET. PO SCH (08:16)
[2019-03-19] MEDS: MULTIVITAMIN with MINERAL TABLET. PO SCH (08:16)
[2019-03-19] MEDS: ASPIRIN 81 MG TAB.CHEW PO SCH (08:16)
[2019-03-19] MEDS: ZIPRASIDONE 20 MG CAPSULE. PO SCH ×3 (08:16→21:00)
[2019-03-19] MEDS: PANTOPRAZOLE 40 MG TABLET. PO SCH (08:16)
[2019-03-19] MEDS: ACETAMINOPHEN 325 MG TABLET PO SCH ×3 (08:16→21:00)
[2019-03-19] MEDS: LACTOBACILLUS RHAMNOSUS GG 1 CAPSULE. PO SCH ×3 (08:16→21:00)
[2019-03-19] MEDS: CHOLECALCIFEROL (VITAMIN D3) 50,000 UNIT CAPSULE PO SCH (08:19)
[2019-03-19 15:33] VITALS: BP 109/81
--- NOTE | 2019-03-19 18:53 | NUR ---
pt up adl in halls. has been pleasantly confused. disorganized.
[2019-03-19] MEDS: traZODone 50 MG TABLET. PO SCH ×2 (19:39→20:55)
[2019-03-19] MEDS: MAGNESIUM HYDROXIDE 2,400 MG/30 ML ORAL.SUSP. PO PRN ×2 (20:33→22:20)
[2019-03-19] MEDS: LORazepam 0.5 MG TABLET PO PRN (20:55)
--- NOTE | 2019-03-19 22:29 | PDOC ---
Exam Note: Guero Note: Please also refer to the separate dictated note~for this date of service dictated separately.~Patient seen individually. Discussed the patient with Nursing staff reviewed the chart.~Reviewed interim history and current functioning. Reviewed vital signs,~Labs/ Radiology~and current medications noted below. Continue current treatment with the changes noted in the dictated addendum note Assessment: Vital Signs: Vital Signs Date Time Temp Pulse Resp B/P (MAP) Pulse Ox O2 Delivery O2 Flow Rate FiO2 03/19/19 15:33 98.2 85 16 109/81 (90) 100 03/19/19 06:14 Room Air I&O Intake and Output 03/19/19 06:59 Intake Total 600 ml Balance 600 ml Intake Oral 600 ml Current Medications: Meds: Current Medications Acetaminophen (Tylenol) 650 mg BID PO Last administered on 03/19/19at 08:16; Start 03/09/19 at 21:00 Lorazepam (Ativan) 0.5 mg PRN Q6HRS PRN PO Mood disorder Last administered on 03/19/19at 20:55; Start 03/09/19 at 20:00 Al Hydroxide/Mg Hydroxide (Mylanta Plus Xs) 30 ml PRN Q4HRS PRN PO GERD; Start 03/09/19 at 20:00 Acetaminophen (Tylenol) 325 mg PRN Q8HRS PRN PO MILD PAIN 1-3; Start 03/09/19 at 20:45 Alendronate Sodium (Fosamax) 70 mg WEEKLYAC PO Last administered on 03/16/19at 07:49; Start 03/16/19 at 07:00 Aspirin (Children'S Aspirin) 81 mg DAILY PO Last administered on 03/19/19at 08:16; Start 03/10/19 at 09:00 Bisacodyl (Dulcolax Supp) 10 mg PRN Q12HR PRN [place] CONSTIPATION; Start 03/09/19 at 21:00 Calcium Carbonate/ Glycine (Tums) 500 mg PRN BID PRN PO GERD; Start 03/09/19 at 21:00 Artificial Tears (Refresh Classic) 1 drop PRN Q12HR PRN OU DRY EYE; Start 03/09/19 at 21:00 Citalopram Hydrobromide (CeleXA) 10 mg DAILY PO Last administered on 03/19/19at 08:16; Start 03/10/19 at 09:00 Pantoprazole Sodium (Protonix) 40 mg DAILY PO Last administered on 03/19/19 08:16; Start 03/10/19 at 09:00 Multivitamins/ Calcium (Thera-M Plus) 1 tab DAILY PO Last administered on 03/19/19 08:16; Start 03/10/19 at 09:00 Trazodone HCl (Desyrel) 50 mg QHS PO Last administered on 03/19/19 20:55; Start 03/09/19 at 21:00 Acetaminophen (Tylenol) 650 mg PRN Q6HRS PRN PO PAIN / TEMP; Start 03/09/19 at 22:15; Status UNV Multi-Ingredient Ointment (Analgesic [place]) 1 kevin PRN QID PRN TP MUSCLE PAIN; Start 03/09/19 at 22:15 Al Hydroxide/Mg Hydroxide (Mylanta Plus Xs) 15 ml PRN AFTMEALHC PRN PO DYSPEPSIA; Start 03/09/19 at 22:15; Status UNV Magnesium Hydroxide (Milk Of Magnesia) 2,400 mg PRN QHS PRN PO CONSTIPATION Last administered on 03/19/19 22:20; Start 03/09/19 at 22:15 Levofloxacin (Levaquin) 500 mg DAILY06 PO Last administered on 03/13/19 05:54; Start 03/10/19 at 06:00; Stop 03/14/19 at 06:00; Status DC Lactobacillus Rhamnosus (Culturelle) 1 cap BID PO Last administered on 03/19/19 08:16; Start 03/10/19 at 21:00 Ziprasidone (Geodon) 20 mg QHS PO Last administered on 03/14/19 20:00; Start 03/10/19 at 21:00; Stop 03/15/19 at 17:23; Status DC Olanzapine (ZyPREXA ZYDIS) 2.5 mg PRN Q2HR PRN PO PSYCHOSIS Last administered on 03/19/19 20:55; Start 03/12/19 at 23:45 Haloperidol Lactate (Haldol) 5 mg 1X ONCE IM Last administered on 03/13/19 15:04; Start 03/13/19 at 15:15; Stop 03/13/19 at 15:16; Status DC Haloperidol Lactate (Haldol) 5 mg DAILY IM ; Start 03/14/19 at 09:00; Stop 03/15/19 at 17:23; Status DC Levofloxacin (Levaquin) 500 mg DAILY06 PO Last administered on 03/18/19at 05:01; Start 03/14/19 at 15:00; Stop 03/18/19 at 14:59; Status DC Ziprasidone (Geodon) 20 mg BID PO Last administered on 03/19/19at 08:16; Start 03/15/19 at 21:00 Vitamin D (Vitamin D3) 50,000 unit WEEKLY PO ; Start 03/18/19 at 16:00; Stop 03/18/19 at 16:27; Status DC Vitamin D (Vitamin D3) 50,000 unit WEEKLY PO Last administered on 03/19/19at 08:19; Start 03/19/19 at 09:00 Active Scripts Active Reported Tylenol (Acetaminophen) 325 Mg Tablet 650 Mg PO BID Tylenol (Acetaminophen) 325 Mg Capsule 325 Mg PO PRN Q8HRS PRN Tums (Calcium Carbonate) 300 Mg Tab.chew 500 Mg PO PRN BID PRN Trazodone Hcl 50 Mg Tablet 50 Mg PO QHS Multivitamins (Multivitamin) 1 Each Tablet 1 Each PO DAILY Maalox Maximum Strength Susp (Mag Hydrox/Al Hydrox/Simeth) 355 Ml Oral.susp 30 Ml PO PRN Q4HRS PRN Lansoprazole 30 Mg Capsule.dr 15 Mg PO DAILY Geodon (Ziprasidone Mesylate) 20 Mg Vial 0.5 Ml IM PRN Q6HRS PRN Escitalopram Oxalate 5 Mg Tablet 5 Mg PO DAILY Biscolax (Bisacodyl) 10 Mg Supp.rect 10 Mg RC PRN Q12HR PRN Ativan (Lorazepam) 1 Mg Tablet 0.5 Mg PO PRN Q6HRS PRN Aspirin 81 Mg Tab.chew 81 Mg PO DAILY Artificial Tears Drops (Dextran 70/Hypromellose/Pf) 1 Each Droperette 1 Each OU PRN Q12HR PRN Alendronate Sodium 70 Mg Tablet 70 Mg PO QWE I have reviewed the current psychotropics carefully including drug interactions. Risk benefit ratio favors no change other than as noted in my dictated progress note. Diagnosis: Problems: (1) Mood disorder (2) Impulse control disorder, unspecified (3) Dementia in Alzheimer's disease with depression (4) Dementia in Alzheimer's disease with delusions KASSIDY POP MD March 19, 2019 22:29
--- NOTE | 2019-03-19 22:41 | NUR ---
Pt wandering in the day room at shift change. Pt agitated, confused, intrusive with other patients and attempting to take things from them, combative with staff when they attempt to re-direct her. Pt had to be secured in [facility]. Pt refusing to take HS medications. PRN Ativan and Zyprexa as well as scheduled HS Trazodone crushed and administered via oral syringe.
[2019-03-19] MEDS ORDERED: traZODone 50 MG TABLET. PO PRN (23:30)
[2019-03-20 06:50] VITALS: BP 122/75
[2019-03-20] MEDS: MULTIVITAMIN with MINERAL TABLET. PO SCH (08:04)
[2019-03-20] MEDS: ZIPRASIDONE 20 MG CAPSULE. PO SCH ×2 (08:04→19:48)
[2019-03-20] MEDS: LACTOBACILLUS RHAMNOSUS GG 1 CAPSULE. PO SCH ×2 (08:04→19:48)
[2019-03-20] MEDS: PANTOPRAZOLE 40 MG TABLET. PO SCH (08:04)
[2019-03-20] MEDS: ACETAMINOPHEN 325 MG TABLET PO SCH ×2 (08:04→19:49)
[2019-03-20] MEDS: ASPIRIN 81 MG TAB.CHEW PO SCH (08:04)
[2019-03-20] MEDS: CITALOPRAM 10 MG TABLET. PO SCH (08:04)
[2019-03-20 15:55] VITALS: BP 105/58
--- NOTE | 2019-03-20 18:35 | NUR ---
pt up adl in halls. was angry and resistive prior to breakfast. in [place] for short time. prns given. pt eventually calmed down and was able to wander in halls.
--- NOTE | 2019-03-20 19:31 | PN ---
DATE: 03/18/2019 PSYCHIATRIC PROGRESS NOTE This late entry 03/18/2019 covers elements not covered in my initial note. SUBJECTIVE: I met with the patient in the evening. The patient slept 5-3/4 hours previous night. She remains irritable. No PRNs have been used. She had low-grade temperature day before, but none on 03/18/2019. Repeat UA and chest x-ray are negative. REVIEW OF SYSTEMS: No CV, , pulmonary, eye, ENT system symptoms on review. Reliability poor. MENTAL STATUS EXAM: Oriented to herself. Insight, judgment, recent and remote memory, attention, concentration, fund of knowledge poor, consistent with her diagnosis mentioned in my initial note. PLAN: No change from initial note. MAN Jose Maria POP MD DR: SCOTT/omer JOB#: [id number] / [id number]
[2019-03-20] MEDS: traZODone 50 MG TABLET. PO SCH (19:48)
--- NOTE | 2019-03-20 22:22 | PDOC ---
Exam Note: Guero Note: Please also refer to the separate dictated note~for this date of service dictated separately.~Patient seen individually. Discussed the patient with Nursing staff reviewed the chart.~Reviewed interim history and current functioning. Reviewed vital signs,~Labs/ Radiology~and current medications noted below. Continue current treatment with the changes noted in the dictated addendum note Assessment: Vital Signs: Vital Signs Date Time Temp Pulse Resp B/P (MAP) Pulse Ox O2 Delivery O2 Flow Rate FiO2 03/20/19 15:55 97.3 88 18 105/58 (74) 97 03/19/19 06:14 Room Air I&O Intake and Output 03/20/19 07:00 Intake Total 1320 ml Balance 1320 ml Intake Oral 1320 ml Current Medications: Meds: Current Medications Acetaminophen (Tylenol) 650 mg BID PO Last administered on 03/20/19at 19:49; Start 03/09/19 at 21:00 Lorazepam (Ativan) 0.5 mg PRN Q6HRS PRN PO Mood disorder Last administered on 03/19/19at 20:55; Start 03/09/19 at 20:00 Al Hydroxide/Mg Hydroxide (Mylanta Plus Xs) 30 ml PRN Q4HRS PRN PO GERD; Start 03/09/19 at 20:00 Acetaminophen (Tylenol) 325 mg PRN Q8HRS PRN PO MILD PAIN 1-3; Start 03/09/19 at 20:45 Alendronate Sodium (Fosamax) 70 mg WEEKLYAC PO Last administered on 03/16/19at 07:49; Start 03/16/19 at 07:00 Aspirin (Children'S Aspirin) 81 mg DAILY PO Last administered on 03/20/19at 08:04; Start 03/10/19 at 09:00 Bisacodyl (Dulcolax Supp) [address] CONSTIPATION; Start 03/09/19 at 21:00 Calcium Carbonate/ Glycine (Tums) 500 mg PRN BID PRN PO GERD; Start 03/09/19 at 21:00 Artificial Tears (Refresh Classic) 1 drop PRN Q12HR PRN OU DRY EYE; Start 03/09/19 at 21:00 Citalopram Hydrobromide (CeleXA) 10 mg DAILY PO Last administered on 03/20/19at 08:04; Start 03/10/19 at 09:00 Pantoprazole Sodium (Protonix) 40 mg DAILY PO Last administered on 03/20/19 08:04; Start 03/10/19 at 09:00 Multivitamins/ Calcium (Thera-M Plus) 1 tab DAILY PO Last administered on 03/20/19 08:04; Start 03/10/19 at 09:00 Trazodone HCl (Desyrel) 50 mg QHS PO Last administered on 03/20/19 19:48; Start 03/09/19 at 21:00 Acetaminophen (Tylenol) 650 mg PRN Q6HRS PRN PO PAIN / TEMP; Start 03/09/19 at 22:15; Status UNV Multi-Ingredient Ointment (Analgesic [place]) 1 kevin PRN QID PRN TP MUSCLE PAIN; Start 03/09/19 at 22:15 Al Hydroxide/Mg Hydroxide (Mylanta Plus Xs) 15 ml PRN AFTMEALHC PRN PO DYSPEPSIA; Start 03/09/19 at 22:15; Status UNV Magnesium Hydroxide (Milk Of Magnesia) 2,400 mg PRN QHS PRN PO CONSTIPATION Last administered on 03/19/19 22:20; Start 03/09/19 at 22:15 Levofloxacin (Levaquin) 500 mg DAILY06 PO Last administered on 03/13/19 05:54; Start 03/10/19 at 06:00; Stop 03/14/19 at 06:00; Status DC Lactobacillus Rhamnosus (Culturelle) 1 cap BID PO Last administered on 03/20/19 19:48; Start 03/10/19 at 21:00 Ziprasidone (Geodon) 20 mg QHS PO Last administered on 03/14/19at 20:00; Start 03/10/19 at 21:00; Stop 03/15/19 at 17:23; Status DC Olanzapine (ZyPREXA ZYDIS) 2.5 mg PRN Q2HR PRN PO PSYCHOSIS Last administered on 03/19/19 23:36; Start 03/12/19 at 23:45 Haloperidol Lactate (Haldol) 5 mg 1X ONCE IM Last administered on 03/13/19 15 :04; Start 03/13/19 at 15:15; Stop 03/13/19 at 15:16; Status DC Haloperidol Lactate (Haldol) 5 mg DAILY IM ; Start 03/14/19 at 09:00; Stop 03/15/19 at 17:23; Status DC Levofloxacin (Levaquin) 500 mg DAILY06 PO Last administered on 03/18/19at 05:01; Start 03/14/19 at 15:00; Stop 03/18/19 at 14:59; Status DC Ziprasidone (Geodon) 20 mg BID PO Last administered on 03/20/19at 19:48; Start 03/15/19 at 21:00 Vitamin D (Vitamin D3) 50,000 unit WEEKLY PO ; Start 03/18/19 at 16:00; Stop 03/18/19 at 16:27; Status DC Vitamin D (Vitamin D3) 50,000 unit WEEKLY PO Last administered on 03/19/19at 08:19; Start 03/19/19 at 09:00 Trazodone HCl (Desyrel) 50 mg PRN QHS PRN PO INSOMNIA Last administered on 03/19/19at 23:54; Start 03/19/19 at 23:30 Active Scripts Active Reported Tylenol (Acetaminophen) 325 Mg Tablet 650 Mg PO BID Tylenol (Acetaminophen) 325 Mg Capsule 325 Mg PO PRN Q8HRS PRN Tums (Calcium Carbonate) 300 Mg Tab.chew 500 Mg PO PRN BID PRN Trazodone Hcl 50 Mg Tablet 50 Mg PO QHS Multivitamins (Multivitamin) 1 Each Tablet 1 Each PO DAILY Maalox Maximum Strength Susp (Mag Hydrox/Al Hydrox/Simeth) 355 Ml Oral.susp 30 Ml PO PRN Q4HRS PRN Lansoprazole 30 Mg Capsule.dr 15 Mg PO DAILY Geodon (Ziprasidone Mesylate) 20 Mg Vial 0.5 Ml IM PRN Q6HRS PRN Escitalopram Oxalate 5 Mg Tablet 5 Mg PO DAILY Biscolax (Bisacodyl) 10 Mg Supp.rect 10 Mg RC PRN Q12HR PRN Ativan (Lorazepam) 1 Mg Tablet 0.5 Mg PO PRN Q6HRS PRN Aspirin 81 Mg Tab.chew 81 Mg PO DAILY Artificial Tears Drops (Dextran 70/Hypromellose/Pf) 1 Each Droperette 1 Each OU PRN Q12HR PRN Alendronate Sodium 70 Mg Tablet 70 Mg PO QWE I have reviewed the current psychotropics carefully including drug interactions. Risk benefit ratio favors no change other than as noted in my dictated progress note. Diagnosis: Problems: (1) Impulse control disorder, unspecified (2) Dementia in Alzheimer's disease with depression (3) Dementia in Alzheimer's disease with delusions (4) Mood disorder KASSIDY POP MD March 20, 2019 22:22
--- NOTE | 2019-03-20 23:49 | NUR ---
Nursing Note Pt compliant and cooperative. Confused takes meds but is very disorganized, cannot even hold a cup of ice cream, no attention span.
[2019-03-21 06:09] VITALS: BP 155/83
[2019-03-21] MEDS: LACTOBACILLUS RHAMNOSUS GG 1 CAPSULE. PO SCH ×2 (08:06→21:13)
[2019-03-21] MEDS: ZIPRASIDONE 20 MG CAPSULE. PO SCH ×2 (08:06→21:13)
[2019-03-21] MEDS: PANTOPRAZOLE 40 MG TABLET. PO SCH (08:06)
[2019-03-21] MEDS: ASPIRIN 81 MG TAB.CHEW PO SCH (08:06)
[2019-03-21] MEDS: CITALOPRAM 10 MG TABLET. PO SCH (08:06)
[2019-03-21] MEDS: MULTIVITAMIN with MINERAL TABLET. PO SCH (08:06)
[2019-03-21] MEDS: ACETAMINOPHEN 325 MG TABLET PO SCH ×2 (08:07→21:13)
--- NOTE | 2019-03-21 10:48 | NUR ---
Pt is irritable and angry but cooperative with medication and assessment. No physical aggression. No hallucinations, no delusions.Pt does like to wander at times.
--- NOTE | 2019-03-21 11:52 | PN ---
DATE: 03/20/2019 PSYCHIATRIC PROGRESS NOTE This note covers elements not covered in my initial note 03/20/2019. SUBJECTIVE: I met with the patient in the evening. The patient slept 4-1/2 hours previous night. Overall, the patient remains confused, anxious. In the morning, she was in [place] away from all stimuli, later in the day, she did better. REVIEW OF SYSTEMS: No CV, , pulmonary, eye, ENT system symptoms on review. Reliability poor. MENTAL STATUS EXAM: Oriented to herself. Insight, judgment, recent and remote memory, attention, concentration, fund of knowledge poor, consistent with her diagnosis mentioned in my initial note. PLAN: Continue current psychotropics. Start Remeron 7.5 mg p.o. at bedtime to help with anxiety and insomnia. MAN Jose Maria POP MD DR: SCOTT/omer JOB#: [id number] / [id number]
[2019-03-21 16:01] VITALS: BP 149/88
--- NOTE | 2019-03-21 16:20 | NUR ---
Pt is wandering the unit pacing and cussing. Staff is unable to redirect or console pt. PRN damaso alberts given.
[2019-03-21] MEDS: traZODone 50 MG TABLET. PO SCH (21:13)
[2019-03-21] MEDS: MIRTAZAPINE 7.5 MG TABLET. PO SCH (21:53)
--- NOTE | 2019-03-21 22:28 | PDOC ---
Exam Note: Guero Note: Please also refer to the separate dictated note~for this date of service dictated separately.~Patient seen individually. Discussed the patient with Nursing staff reviewed the chart.~Reviewed interim history and current functioning. Reviewed vital signs,~Labs/ Radiology~and current medications noted below. Continue current treatment with the changes noted in the dictated addendum note Assessment: Vital Signs: Vital Signs Date Time Temp Pulse Resp B/P (MAP) Pulse Ox O2 Delivery O2 Flow Rate FiO2 03/21/19 16:01 98.1 84 20 149/88 (108) 96 03/19/19 06:14 Room Air I&O Intake and Output 03/21/19 06:59 Intake Total 660 ml Balance 660 ml Intake Oral 660 ml Current Medications: Meds: Current Medications Acetaminophen (Tylenol) 650 mg BID PO Last administered on 03/21/19at 21:13; Start 03/09/19 at 21:00 Lorazepam (Ativan) 0.5 mg PRN Q6HRS PRN PO Mood disorder Last administered on 03/19/19at 20:55; Start 03/09/19 at 20:00 Al Hydroxide/Mg Hydroxide (Mylanta Plus Xs) 30 ml PRN Q4HRS PRN PO GERD; Start 03/09/19 at 20:00 Acetaminophen (Tylenol) 325 mg PRN Q8HRS PRN PO MILD PAIN 1-3; Start 03/09/19 at 20:45 Alendronate Sodium (Fosamax) 70 mg WEEKLYAC PO Last administered on 03/16/19at 07:49; Start 03/16/19 at 07:00 Aspirin (Children'S Aspirin) 81 mg DAILY PO Last administered on 03/21/19at 08:06; Start 03/10/19 at 09:00 Bisacodyl (Dulcolax Supp) 10 mg PRN Q12HR PRN [place] CONSTIPATION; Start 03/09/19 at 21:00 Calcium Carbonate/ Glycine (Tums) 500 mg PRN BID PRN PO GERD; Start 03/09/19 at 21:00 Artificial Tears (Refresh Classic) 1 drop PRN Q12HR PRN OU DRY EYE; Start 03/09/19 at 21:00 Citalopram Hydrobromide (CeleXA) 10 mg DAILY PO Last administered on 03/21/19at 08:06; Start 03/10/19 at 09:00 Pantoprazole Sodium (Protonix) 40 mg DAILY PO Last administered on 03/21/19 08:06; Start 03/10/19 at 09:00 Multivitamins/ Calcium (Thera-M Plus) 1 tab DAILY PO Last administered on 03/21/19 08:06; Start 03/10/19 at 09:00 Trazodone HCl (Desyrel) 50 mg QHS PO Last administered on 03/21/19 21:13; Start 03/09/19 at 21:00 Acetaminophen (Tylenol) 650 mg PRN Q6HRS PRN PO PAIN / TEMP; Start 03/09/19 at 22:15; Status UNV Multi-Ingredient Ointment (Analgesic [place]) 1 kevin PRN QID PRN TP MUSCLE PAIN; Start 03/09/19 at 22:15 Al Hydroxide/Mg Hydroxide (Mylanta Plus Xs) 15 ml PRN AFTMEALHC PRN PO DYSPEPSIA; Start 03/09/19 at 22:15; Status UNV Magnesium Hydroxide (Milk Of Magnesia) 2,400 mg PRN QHS PRN PO CONSTIPATION Last administered on 03/19/19 22:20; Start 03/09/19 at 22:15 Levofloxacin (Levaquin) 500 mg DAILY06 PO Last administered on 03/13/19 05:54; Start 03/10/19 at 06:00; Stop 03/14/19 at 06:00; Status DC Lactobacillus Rhamnosus (Culturelle) 1 cap BID PO Last administered on 03/21/19 21:13; Start 03/10/19 at 21:00 Ziprasidone (Geodon) 20 mg QHS PO Last administered on 03/14/19 20:00; Start 03/10/19 at 21:00; Stop 03/15/19 at 17:23; Status DC Olanzapine (ZyPREXA ZYDIS) 2.5 mg PRN Q2HR PRN PO PSYCHOSIS Last administered on 03/21/19 16:18; Start 03/12/19 at 23:45 Haloperidol Lactate (Haldol) 5 mg 1X ONCE IM Last administered on 03/13/19 15:04; Start 03/13/19 at 15:15; Stop 03/13/19 at 15:16; Status DC Haloperidol Lactate (Haldol) 5 mg DAILY IM ; Start 03/14/19 at 09:00; Stop 03/15/19 at 17:23; Status DC Levofloxacin (Levaquin) 500 mg DAILY06 PO Last administered on 03/18/19at 05:01; Start 03/14/19 at 15:00; Stop 03/18/19 at 14:59; Status DC Ziprasidone (Geodon) 20 mg BID PO Last administered on 03/21/19at 21:13; Start 03/15/19 at 21:00 Vitamin D (Vitamin D3) 50,000 unit WEEKLY PO ; Start 03/18/19 at 16:00; Stop 03/18/19 at 16:27; Status DC Vitamin D (Vitamin D3) 50,000 unit WEEKLY PO Last administered on 03/19/19at 08:19; Start 03/19/19 at 09:00 Trazodone HCl (Desyrel) 50 mg PRN QHS PRN PO INSOMNIA Last administered on 03/19/19at 23:54; Start 03/19/19 at 23:30 Mirtazapine (Remeron) 7.5 mg QHS PO Last administered on 03/21/19at 21:53; Start 03/21/19 at 21:00 Active Scripts Active Reported Tylenol (Acetaminophen) 325 Mg Tablet 650 Mg PO BID Tylenol (Acetaminophen) 325 Mg Capsule 325 Mg PO PRN Q8HRS PRN Tums (Calcium Carbonate) 300 Mg Tab.chew 500 Mg PO PRN BID PRN Trazodone Hcl 50 Mg Tablet 50 Mg PO QHS Multivitamins (Multivitamin) 1 Each Tablet 1 Each PO DAILY Maalox Maximum Strength Susp (Mag Hydrox/Al Hydrox/Simeth) 355 Ml Oral.susp 30 Ml PO PRN Q4HRS PRN Lansoprazole 30 Mg Capsule.dr 15 Mg PO DAILY Geodon (Ziprasidone Mesylate) 20 Mg Vial 0.5 Ml IM PRN Q6HRS PRN Escitalopram Oxalate 5 Mg Tablet 5 Mg PO DAILY Biscolax (Bisacodyl) 10 Mg Supp.rect 10 Mg RC PRN Q12HR PRN Ativan (Lorazepam) 1 Mg Tablet 0.5 Mg PO PRN Q6HRS PRN Aspirin 81 Mg Tab.chew 81 Mg PO DAILY Artificial Tears Drops (Dextran 70/Hypromellose/Pf) 1 Each Droperette 1 Each OU PRN Q12HR PRN Alendronate Sodium 70 Mg Tablet 70 Mg PO QWE I have reviewed the current psychotropics carefully including drug interactions. Risk benefit ratio favors no change other than as noted in my dictated progress note. Diagnosis: Problems: (1) Mood disorder (2) Impulse control disorder, unspecified (3) Dementia in Alzheimer's disease with depression (4) Dementia in Alzheimer's disease with delusions KASSIDY POP MD March 21, 2019 22:28
--- NOTE | 2019-03-21 22:58 | PN ---
DATE: 03/21/2019 PSYCHIATRIC PROGRESS NOTE This note covers elements not covered in my initial note. SUBJECTIVE: I met with the patient in the evening of 03/21/2019. The patient slept 6-1/2 hours previous night. She has been wandering, confused; per nursing staff, disorganized, agitated at times, but does redirect. Takes her medications whole. REVIEW OF SYSTEMS: No CV, , pulmonary, eye, ENT system symptoms on review. Reliability poor. She ambulates independently. MENTAL STATUS EXAM: Oriented to herself. Insight, judgment, recent and remote memory, attention, concentration, fund of knowledge poor, consistent with her diagnosis mentioned in my initial note. PLAN: No change from initial note. MAN Jose Maria POP MD DR: SCOTT/omer JOB#: [id number] / [id number]
--- NOTE | 2019-03-22 00:26 | PN ---
DATE: 03/19/2019 PSYCHIATRIC PROGRESS NOTE This late entry 03/19/2019 covers elements not covered in my initial note. SUBJECTIVE: I met with the patient in the evening. The patient slept 7-1/2 hours previous night. The patient remains confused, anxious. No PRNs have been used. Complains of some knee pain, received Tylenol. REVIEW OF SYSTEMS: Ambulation independently. No CV, , pulmonary, eye, ENT system symptoms on review. MENTAL STATUS EXAM: Oriented to herself. Insight, judgment, recent and remote memory, attention, concentration, fund of knowledge poor, consistent with her diagnosis mentioned in my initial note. PLAN: No change from initial note. MAN Jose Maria POP MD DR: SCOTT/omer JOB#: [id number] / [id number]
--- NOTE | 2019-03-22 02:31 | NUR ---
Nursing Note The patient was located in her room sleeping when approached for her medications and assessment. The patient was compliant with her medication and took them whole. The patient was very disorganized but was appropriate during interactions with this nurse. The patient is currently sleeping in her room.
[2019-03-22 05:56] VITALS: BP 129/83
[2019-03-22] MEDS: LACTOBACILLUS RHAMNOSUS GG 1 CAPSULE. PO SCH ×2 (07:51→20:54)
[2019-03-22] MEDS: PANTOPRAZOLE 40 MG TABLET. PO SCH (07:51)
[2019-03-22] MEDS: CITALOPRAM 10 MG TABLET. PO SCH (07:51)
[2019-03-22] MEDS: ZIPRASIDONE 20 MG CAPSULE. PO SCH ×2 (07:51→20:54)
[2019-03-22] MEDS: ASPIRIN 81 MG TAB.CHEW PO SCH (07:51)
[2019-03-22] MEDS: ACETAMINOPHEN 325 MG TABLET PO SCH ×2 (07:52→20:54)
[2019-03-22] MEDS: MULTIVITAMIN with MINERAL TABLET. PO SCH (07:52)
--- NOTE | 2019-03-22 10:55 | NUR ---
Pt is cooperative with medication and assessment. No physical aggression. No hallucinations, no delusions.Pt does like to wander at times. Her eye contact is better.
--- NOTE | 2019-03-22 11:16 | NUR ---
DANIEL spoke to pt. son, Sedrick Villalobos, regarding pt. update and discharge plans. DANIEL will leave the doctor a note to see if pt. will be ready for discharge or if it will be delayed due to pt. behaviors. DANIEL also spoke to Chela, Parking Garage Manager at [facility], regarding the above information.
[2019-03-22 16:25] VITALS: BP 135/81
[2019-03-22] MEDS: MIRTAZAPINE 7.5 MG TABLET. PO SCH (20:53)
[2019-03-22] MEDS: traZODone 50 MG TABLET. PO SCH (20:54)
--- NOTE | 2019-03-22 22:31 | PDOC ---
Exam Note: Guero Note: Please also refer to the separate dictated note~for this date of service dictated separately.~Patient seen individually. Discussed the patient with Nursing staff reviewed the chart.~Reviewed interim history and current functioning. Reviewed vital signs,~Labs/ Radiology~and current medications noted below. Continue current treatment with the changes noted in the dictated addendum note Assessment: Vital Signs: Vital Signs Date Time Temp Pulse Resp B/P (MAP) Pulse Ox O2 Delivery O2 Flow Rate FiO2 03/22/19 16:25 97.5 83 16 135/81 (99) 98 Room Air I&O Intake and Output 03/22/19 06:59 Intake Total 1200 ml Balance 1200 ml Intake Oral 1200 ml # Voids 1 # Bowel Movements 1 Current Medications: Meds: Current Medications Acetaminophen (Tylenol) 650 mg BID PO Last administered on 03/22/19at 20:54; Start 03/09/19 at 21:00 Lorazepam (Ativan) 0.5 mg PRN Q6HRS PRN PO Mood disorder Last administered on 03/19/19at 20:55; Start 03/09/19 at 20:00 Al Hydroxide/Mg Hydroxide (Mylanta Plus Xs) 30 ml PRN Q4HRS PRN PO GERD; Start 03/09/19 at 20:00 Acetaminophen (Tylenol) 325 mg PRN Q8HRS PRN PO MILD PAIN 1-3; Start 03/09/19 at 20:45 Alendronate Sodium (Fosamax) 70 mg WEEKLYAC PO Last administered on 03/16/19at 07:49; Start 03/16/19 at 07:00 Aspirin (Children'S Aspirin) 81 mg DAILY PO Last administered on 03/22/19at 07:51; Start 03/10/19 at 09:00 Bisacodyl (Dulcolax Supp) 10 mg PRN Q12HR PRN [place] CONSTIPATION; Start 03/09/19 a t 21:00 Calcium Carbonate/ Glycine (Tums) 500 mg PRN BID PRN PO GERD; Start 03/09/19 at 21:00 Artificial Tears (Refresh Classic) 1 drop PRN Q12HR PRN OU DRY EYE; Start 03/09/19 at 21:00 Citalopram Hydrobromide (CeleXA) 10 mg DAILY PO Last administered on 03/22/19at 07:51; Start 03/10/19 at 09:00 Pantoprazole Sodium (Protonix) 40 mg DAILY PO Last administered on 03/22/19 07:51; Start 03/10/19 at 09:00 Multivitamins/ Calcium (Thera-M Plus) 1 tab DAILY PO Last administered on 03/22/19 07:52; Start 03/10/19 at 09:00 Trazodone HCl (Desyrel) 50 mg QHS PO Last administered on 03/22/19 20:54; Start 03/09/19 at 21:00 Acetaminophen (Tylenol) 650 mg PRN Q6HRS PRN PO PAIN / TEMP; Start 03/09/19 at 22:15; Status UNV Multi-Ingredient Ointment (Analgesic [place]) 1 kevin PRN QID PRN TP MUSCLE PAIN; Start 03/09/19 at 22:15 Al Hydroxide/Mg Hydroxide (Mylanta Plus Xs) 15 ml PRN AFTMEALHC PRN PO DYSPEPSIA; Start 03/09/19 at 22:15; Status UNV Magnesium Hydroxide (Milk Of Magnesia) 2,400 mg PRN QHS PRN PO CONSTIPATION [place] administered on 03/19/19 22:20; Start 03/09/19 at 22:15 Levofloxacin (Levaquin) 500 mg DAILY06 PO Last administered on 03/13/19 05:54; Start 03/10/19 at 06:00; Stop 03/14/19 at 06:00; Status DC Lactobacillus Rhamnosus (Culturelle) 1 cap BID PO Last administered on 03/22/19 20:54; Start 03/10/19 at 21:00 Ziprasidone (Geodon) 20 mg QHS PO Last administered on 03/14/19at 20:00; Start 03/10/19 at 21:00; Stop 03/15/19 at 17:23; Status DC Olanzapine (ZyPREXA ZYDIS) 2.5 mg PRN Q2HR PRN PO PSYCHOSIS Last administered on 03/21/19 16:18; Start 03/12/19 at 23:45 Haloperidol Lactate (Haldol) 5 mg 1X ONCE IM Last administered on 03/13/19 15:04; Start 03/13/19 at 15:15; Stop 03/13/19 at 15:16; Status DC Haloperidol Lactate (Haldol) 5 mg DAILY IM ; Start 03/14/19 at 09:00; Stop 03/15/19 at 17:23; Status DC Levofloxacin (Levaquin) 500 mg DAILY06 PO Last administered on 03/18/19at 05:01; Start 03/14/19 at 15:00; Stop 03/18/19 at 14:59; Status DC Ziprasidone (Geodon) 20 mg BID PO Last administered on 03/22/19at 20:54; Start 03/15/19 at 21:00 Vitamin D (Vitamin D3) 50,000 unit WEEKLY PO ; Start 03/18/19 at 16:00; Stop 03/18/19 at 16:27; Status DC Vitamin D (Vitamin D3) 50,000 unit WEEKLY PO Last administered on 03/19/19at 08:19; Start 03/19/19 at 09:00 Trazodone HCl (Desyrel) 50 mg PRN QHS PRN PO INSOMNIA Last administered on 03/19/19at 23:54; Start 03/19/19 at 23:30 Mirtazapine (Remeron) 7.5 mg QHS PO Last administered on 03/22/19at 20:53; Start 03/21/19 at 21:00 Active Scripts Active Reported Tylenol (Acetaminophen) 325 Mg Tablet 650 Mg PO BID Tylenol (Acetaminophen) 325 Mg Capsule 325 Mg PO PRN Q8HRS PRN Tums (Calcium Carbonate) 300 Mg Tab.chew 500 Mg PO PRN BID PRN Trazodone Hcl 50 Mg Tablet 50 Mg PO QHS Multivitamins (Multivitamin) 1 Each Tablet 1 Each PO DAILY Maalox Maximum Strength Susp (Mag Hydrox/Al Hydrox/Simeth) 355 Ml Oral.susp 30 Ml PO PRN Q4HRS PRN Lansoprazole 30 Mg Capsule.dr 15 Mg PO DAILY Geodon (Ziprasidone Mesylate) 20 Mg Vial 0.5 Ml IM PRN Q6HRS PRN Escitalopram Oxalate 5 Mg Tablet 5 Mg PO DAILY Biscolax (Bisacodyl) 10 Mg Supp.rect 10 Mg RC PRN Q12HR PRN Ativan (Lorazepam) 1 Mg Tablet 0.5 Mg PO PRN Q6HRS PRN Aspirin 81 Mg Tab.chew 81 Mg PO DAILY Artificial Tears Drops (Dextran 70/Hypromellose/Pf) 1 Each Droperette 1 Each OU PRN Q12HR PRN Alendronate Sodium 70 Mg Tablet 70 Mg PO QWE I have reviewed the current psychotropics carefully including drug interactions. Risk benefit ratio favors no change other than as noted in my dictated progress note. Diagnosis: Problems: (1) Mood disorder (2) Impulse control disorder, unspecified (3) Dementia in Alzheimer's disease with depression (4) Dementia in Alzheimer's disease with delusions KASSIDY POP MD March 22, 2019 22:31
--- NOTE | 2019-03-22 22:34 | PN ---
DATE: 03/22/2019 PSYCHIATRIC PROGRESS NOTE This note covers elements not covered in my initial note 03/22/2019. SUBJECTIVE: I met with the patient in the evening. The patient slept 7-1/2 hours previous night. She has been wandering, confused, but overall redirectable, had a good day per nursing report. REVIEW OF SYSTEMS: No CV, , pulmonary, eye, ENT system symptoms on review. Reliability poor. MENTAL STATUS EXAM: Oriented to herself. Insight, judgment, recent and remote memory, attention, concentration, fund of knowledge poor, consistent with her diagnosis mentioned in my initial note. PLAN: No change from initial note. She does take her medications whole. MAN Jose Maria POP MD DR: SCOTT/omer JOB#: [id number] / [id number]
--- NOTE | 2019-03-22 23:47 | NUR ---
Nursing Note The patient was located in the hallways/dayroom for her medications and assessment. The patient was compliant with her medications and assessment. The patient was pleasantly confused wandering the unit. The patient was appropriate but disorganized during her assessment. the patient is currently sleeping in her room.
[2019-03-23] MEDS: ALENDRONATE SODIUM 35 MG TABLET PO SCH (05:54)
[2019-03-23 06:28] VITALS: BP 149/91
[2019-03-23] MEDS: CITALOPRAM 10 MG TABLET. PO SCH (08:04)
[2019-03-23] MEDS: ZIPRASIDONE 20 MG CAPSULE. PO SCH ×2 (08:04→20:48)
[2019-03-23] MEDS: LACTOBACILLUS RHAMNOSUS GG 1 CAPSULE. PO SCH ×2 (08:04→20:48)
[2019-03-23] MEDS: ASPIRIN 81 MG TAB.CHEW PO SCH (08:04)
[2019-03-23] MEDS: PANTOPRAZOLE 40 MG TABLET. PO SCH (08:04)
[2019-03-23] MEDS: MULTIVITAMIN with MINERAL TABLET. PO SCH (08:05)
[2019-03-23] MEDS: ACETAMINOPHEN 325 MG TABLET PO SCH ×2 (08:05→20:48)
--- NOTE | 2019-03-23 09:57 | NUR ---
Assumed care of patient at aprox. 0700. Patient is up in day room at time of shift change. At time of assessment patient is in dining room eating breakfast. Patient is confused and disorganized at time of assessment. Patient is calm an compliant with Meds and assessment. Will continue to monitor.
--- NOTE | 2019-03-23 10:05 | NUR ---
DANIEL contacted pt. son, Sedrick Villalobos, and Chela, Program Management Analyst at [facility], to discuss postponement of discharge to 03/28/2019. Chela will call back with transport time.
[2019-03-23 16:18] VITALS: BP 148/99
[2019-03-23] MEDS: traZODone 50 MG TABLET. PO SCH (20:48)
[2019-03-23] MEDS: MIRTAZAPINE 7.5 MG TABLET. PO SCH (20:48)
--- NOTE | 2019-03-23 22:21 | PDOC ---
Exam Note: Guero Note: Please also refer to the separate dictated note~for this date of service dictated separately.~Patient seen individually. Discussed the patient with Nursing staff reviewed the chart.~Reviewed interim history and current functioning. Reviewed vital signs,~Labs/ Radiology~and current medications noted below. Continue current treatment with the changes noted in the dictated addendum note Assessment: Vital Signs: Vital Signs Date Time Temp Pulse Resp B/P (MAP) Pulse Ox O2 Delivery O2 Flow Rate FiO2 03/23/19 16:18 98.0 85 19 148/99 (115) 95 03/22/19 16:25 Room Air I&O Intake and Output 03/23/19 07:00 Intake Total 1200 ml Balance 1200 ml Intake Oral 1200 ml Current Medications: Meds: Current Medications Acetaminophen (Tylenol) 650 mg BID PO Last administered on 03/23/19at 20:48; Start 03/09/19 at 21:00 Lorazepam (Ativan) 0.5 mg PRN Q6HRS PRN PO Mood disorder Last administered on 03/19/19at 20:55; Start 03/09/19 at 20:00 Al Hydroxide/Mg Hydroxide (Mylanta Plus Xs) 30 ml PRN Q4HRS PRN PO GERD; Start 03/09/19 at 20:00 Acetaminophen (Tylenol) 325 mg PRN Q8HRS PRN PO MILD PAIN 1-3; Start 03/09/19 at 20:45 Alendronate Sodium (Fosamax) 70 mg WEEKLYAC PO Last administered on 03/23/19at 05:54; Start 03/16/19 at 07:00 Aspirin (Children'S Aspirin) 81 mg DAILY PO Last administered on 03/23/19at 08:04; Start 03/10/19 at 09:00 Bisacodyl (Dulcolax Supp) 10 mg PRN Q12HR PRN [place] CONSTIPATION; Start 03/09/19 at 21:00 Calcium Carbonate/ Glycine (Tums) 500 mg PRN BID PRN PO GERD; Start 03/09/19 at 21:00 Artificial Tears (Refresh Classic) 1 drop PRN Q12HR PRN OU DRY EYE; Start 03/09/19 at 21:00 Citalopram Hydrobromide (CeleXA) 10 mg DAILY PO Last administered on 03/23/19at 08:04; Start 03/10/19 at 09:00 Pantoprazole Sodium (Protonix) 40 mg DAILY PO Last administered on 03/23/19 08:04; Start 03/10/19 at 09:00 Multivitamins/ Calcium (Thera-M Plus) 1 tab DAILY PO Last administered on 03/23/19 08:05; Start 03/10/19 at 09:00 Trazodone HCl (Desyrel) 50 mg QHS PO Last administered on 03/23/19 20:48; Start 03/09/19 at 21:00 Acetaminophen (Tylenol) 650 mg PRN Q6HRS PRN PO PAIN / TEMP; Start 03/09/19 at 22:15; Status UNV Multi-Ingredient Ointment (Analgesic [place]) 1 kevin PRN QID PRN TP MUSCLE PAIN; Start 03/09/19 at 22:15 Al Hydroxide/Mg Hydroxide (Mylanta Plus Xs) 15 ml PRN AFTMEALHC PRN PO DYSPEPSI A; Start 03/09/19 at 22:15; Status UNV Magnesium Hydroxide (Milk Of Magnesia) 2,400 mg PRN QHS PRN PO CONSTIPATION Last administered on 03/19/19 22:20; Start 03/09/19 at 22:15 Levofloxacin (Levaquin) 500 mg DAILY06 PO Last administered on 03/13/19 05:54; Start 03/10/19 at 06:00; Stop 03/14/19 at 06:00; Status DC Lactobacillus Rhamnosus (Culturelle) 1 cap BID PO Last administered on 03/23/19 20:48; Start 03/10/19 at 21:00 Ziprasidone (Geodon) 20 mg QHS PO Last administered on 03/14/19at 20:00; Start 03/10/19 at 21:00; Stop 03/15/19 at 17:23; Status DC Olanzapine (ZyPREXA ZYDIS) 2.5 mg PRN Q2HR PRN PO PSYCHOSIS Last administered on 03/21/19 16:18; Start 03/12/19 at 23:45 Haloperidol Lactate (Haldol) 5 mg 1X ONCE IM Last administered on 03/13/19at 1 5:04; Start 03/13/19 at 15:15; Stop 03/13/19 at 15:16; Status DC Haloperidol Lactate (Haldol) 5 mg DAILY IM ; Start 03/14/19 at 09:00; Stop 03/15/19 at 17:23; Status DC Levofloxacin (Levaquin) 500 mg DAILY06 PO Last administered on 03/18/19at 05:01; Start 03/14/19 at 15:00; Stop 03/18/19 at 14:59; Status DC Ziprasidone (Geodon) 20 mg BID PO Last administered on 03/23/19at 20:48; Start 03/15/19 at 21:00 Vitamin D (Vitamin D3) 50,000 unit WEEKLY PO ; Start 03/18/19 at 16:00; Stop 03/18/19 at 16:27; Status DC Vitamin D (Vitamin D3) 50,000 unit WEEKLY PO Last administered on 03/19/19at 08:19; Start 03/19/19 at 09:00 Trazodone HCl (Desyrel) 50 mg PRN QHS PRN PO INSOMNIA Last administered on 03/19/19at 23:54; Start 03/19/19 at 23:30 Mirtazapine (Remeron) 7.5 mg QHS PO Last administered on 03/23/19at 20:48; Start 03/21/19 at 21:00 Active Scripts Active Reported Tylenol (Acetaminophen) 325 Mg Tablet 650 Mg PO BID Tylenol (Acetaminophen) 325 Mg Capsule 325 Mg PO PRN Q8HRS PRN Tums (Calcium Carbonate) 300 Mg Tab.chew 500 Mg PO PRN BID PRN Trazodone Hcl 50 Mg Tablet 50 Mg PO QHS Multivitamins (Multivitamin) 1 Each Tablet 1 Each PO DAILY Maalox Maximum Strength Susp (Mag Hydrox/Al Hydrox/Simeth) 355 Ml Oral.susp 30 Ml PO PRN Q4HRS PRN Lansoprazole 30 Mg Capsule.dr 15 Mg PO DAILY Geodon (Ziprasidone Mesylate) 20 Mg Vial 0.5 Ml IM PRN Q6HRS PRN Escitalopram Oxalate 5 Mg Tablet 5 Mg PO DAILY Biscolax (Bisacodyl) 10 Mg Supp.rect 10 Mg RC PRN Q12HR PRN Ativan (Lorazepam) 1 Mg Tablet 0.5 Mg PO PRN Q6HRS PRN Aspirin 81 Mg Tab.chew 81 Mg PO DAILY Artificial Tears Drops (Dextran 70/Hypromellose/Pf) 1 Each Droperette 1 Each OU PRN Q12HR PRN Alendronate Sodium 70 Mg Tablet 70 Mg PO QWE I have reviewed the current psychotropics carefully including drug interactions. Risk benefit ratio favors no change other than as noted in my dictated progress note. Diagnosis: Problems: (1) Mood disorder (2) Impulse control disorder, unspecified (3) Dementia in Alzheimer's disease with depression (4) Dementia in Alzheimer's disease with delusions KASSIDY POP MD March 23, 2019 22:21
[2019-03-24 06:11] VITALS: BP 149/86
--- NOTE | 2019-03-24 09:22 | NUR ---
WEEKLY ACTIVITY THERAPY NOTE Date of Admission: 03/09/2019 Date of AT Assessment: 03/12/2019 Goal aimed: to increase time management and recreation education. Initial goal: Pt will participate in at least four activity therapy groups per week. Weekly progress towards goal: achieved Group participation level: minimal to moderate Weekly highlights: dancing to music on Thursday, giving hugs, playful with Tetris on Thursday Behaviors observed: easily distracted at times, in/out of group, more calm, social with other female peers Plan: no change to goal Beneficial adaptations: use of pool noodles/ balloons to increase engagement, positive response to demonstrations, and music
--- NOTE | 2019-03-24 11:06 | NUR ---
DANIEL spoke to Chela, Lumber Yard Worker at [facility], to give her an update on pt. progress and to solidify discharge for 03/28/2019.
--- NOTE | 2019-03-24 11:08 | NUR ---
WEEKLY NOTE Pt. son, Sedrick Villalobos, was contacted for treatment team. Pt. has been eating 100% of her meals and sleeps an average of 5 hours. Pt. has been compliant with medication but does need directions on what to do with them. Pt. completed her antibiotics for her UTI. Pt. has not been aggressive or combative. Pt. discharge note will give directions on medication changes needed once pt. discharges. Pt. does continue to wander and is pleasantly confused. Pt. will discharge on 03/28/2019 back to [facility].
[2019-03-24] MEDS: ZIPRASIDONE 20 MG CAPSULE. PO SCH ×2 (11:22→19:41)
[2019-03-24] MEDS: MULTIVITAMIN with MINERAL TABLET. PO SCH (11:22)
[2019-03-24] MEDS: LACTOBACILLUS RHAMNOSUS GG 1 CAPSULE. PO SCH ×2 (11:22→19:40)
[2019-03-24] MEDS: ACETAMINOPHEN 325 MG TABLET PO SCH ×2 (11:22→19:41)
[2019-03-24] MEDS: PANTOPRAZOLE 40 MG TABLET. PO SCH (11:23)
[2019-03-24] MEDS: CITALOPRAM 10 MG TABLET. PO SCH (11:23)
[2019-03-24] MEDS: ASPIRIN 81 MG TAB.CHEW PO SCH (11:23)
[2019-03-24 15:38] VITALS: BP 146/86
[2019-03-24] MEDS: traZODone 50 MG TABLET. PO SCH (19:40)
[2019-03-24] MEDS: MIRTAZAPINE 7.5 MG TABLET. PO SCH (19:40)
--- NOTE | 2019-03-24 22:15 | PDOC ---
Exam Note: Guero Note: Please also refer to the separate dictated note~for this date of service dictated separately.~Patient seen individually. Discussed the patient with Nursing staff reviewed the chart.~Reviewed interim history and current functioning. Reviewed vital signs,~Labs/ Radiology~and current medications noted below. Continue current treatment with the changes noted in the dictated addendum note Assessment: Vital Signs: Vital Signs Date Time Temp Pulse Resp B/P (MAP) Pulse Ox O2 Delivery O2 Flow Rate FiO2 03/24/19 15:38 97.8 100 24 146/86 (106) 99 03/22/19 16:25 Room Air I&O Intake and Output 03/24/19 07:00 Intake Total 960 ml Balance 960 ml Intake Oral 960 ml # Voids 1 Current Medications: Meds: Current Medications Acetaminophen (Tylenol) 650 mg BID PO Last administered on 03/24/19at 19:41; Start 03/09/19 at 21:00 Lorazepam (Ativan) 0.5 mg PRN Q6HRS PRN PO Mood disorder Last administered on 03/19/19 20:55; Start 03/09/19 at 20:00 Al Hydroxide/Mg Hydroxide (Mylanta Plus Xs) 30 ml PRN Q4HRS PRN PO GERD; Start 03/09/19 at 20:00 Acetaminophen (Tylenol) 325 mg PRN Q8HRS PRN PO MILD PAIN 1-3; Start 03/09/19 at 20:45 Alendronate Sodium (Fosamax) 70 mg WEEKLYAC PO Last administered on 03/23/19at 05:54; Start 03/16/19 at 07:00 Aspirin (Children'S Aspirin) 81 mg DAILY PO Last administered on 03/24/19at 11:23; Start 03/10/19 at 09:00 Bisacodyl (Dulcolax Supp) 10 mg PRN Q12HR PRN [place] CONSTIPATION; Start 03/09/19 at 21:00 Calcium Carbonate/ Glycine (Tums) 500 mg PRN BID PRN PO GERD; Start 03/09/19 at 21:00 Artificial Tears (Refresh Classic) 1 drop PRN Q12HR PRN OU DRY EYE; Start 03/09/19 at 21:00 Citalopram Hydrobromide (CeleXA) 10 mg DAILY PO Last administered on 03/24/19at 11:23; Start 03/10/19 at 09:00 Pantoprazole Sodium (Protonix) 40 mg DAILY PO Last administered on 03/24/19 11:23; Start 03/10/19 at 09:00 Multivitamins/ Calcium (Thera-M Plus) 1 tab DAILY PO Last administered on 03/24/19 11:22; Start 03/10/19 at 09:00 Trazodone HCl (Desyrel) 50 mg QHS PO Last administered on 03/24/19 19:40; Start 03/09/19 at 21:00 Acetaminophen (Tylenol) 650 mg PRN Q6HRS PRN PO PAIN / TEMP; Start 03/09/19 at 22:15; Status UNV Multi-Ingredient Ointment (Analgesic [place]) 1 kevin PRN QID PRN TP MUSCLE PAIN; Start 03/09/19 at 22:15 Al Hydroxide/Mg Hydroxide (Mylanta Plus Xs) 15 ml PRN AFTMEALHC PRN PO DYSPEPSIA; Start 03/09/19 at 22:15; Status UNV Magnesium Hydroxide (Milk Of Magnesia) 2,400 mg PRN QHS PRN PO CONSTIPATION L ast administered on 03/19/19 22:20; Start 03/09/19 at 22:15 Levofloxacin (Levaquin) 500 mg DAILY06 PO Last administered on 03/13/19 05:54; Start 03/10/19 at 06:00; Stop 03/14/19 at 06:00; Status DC Lactobacillus Rhamnosus (Culturelle) 1 cap BID PO Last administered on 03/24/19 19:40; Start 03/10/19 at 21:00 Ziprasidone (Geodon) 20 mg QHS PO Last administered on 03/14/19 20:00; Start 03/10/19 at 21:00; Stop 03/15/19 at 17:23; Status DC Olanzapine (ZyPREXA ZYDIS) 2.5 mg PRN Q2HR PRN PO PSYCHOSIS Last administered on 03/21/19 16:18; Start 03/12/19 at 23:45 Haloperidol Lactate (Haldol) 5 mg 1X ONCE IM Last administered on 03/13/19 15:04; Start 03/13/19 at 15:15; Stop 03/13/19 at 15:16; Status DC Haloperidol Lactate (Haldol) 5 mg DAILY IM ; Start 03/14/19 at 09:00; Stop 03/15/19 at 17:23; Status DC Levofloxacin (Levaquin) 500 mg DAILY06 PO Last administered on 03/18/19at 05:01; Start 03/14/19 at 15:00; Stop 03/18/19 at 14:59; Status DC Ziprasidone (Geodon) 20 mg BID PO Last administered on 03/24/19at 19:41; Start 03/15/19 at 21:00 Vitamin D (Vitamin D3) 50,000 unit WEEKLY PO ; Start 03/18/19 at 16:00; Stop 03/18/19 at 16:27; Status DC Vitamin D (Vitamin D3) 50,000 unit WEEKLY PO Last administered on 03/19/19at 08:19; Start 03/19/19 at 09:00 Trazodone HCl (Desyrel) 50 mg PRN QHS PRN PO INSOMNIA Last administered on 03/19/19at 23:54; Start 03/19/19 at 23:30 Mirtazapine (Remeron) 7.5 mg QHS PO Last administered on 03/24/19at 19:40; Start 03/21/19 at 21:00 Active Scripts Active Reported Tylenol (Acetaminophen) 325 Mg Tablet 650 Mg PO BID Tylenol (Acetaminophen) 325 Mg Capsule 325 Mg PO PRN Q8HRS PRN Tums (Calcium Carbonate) 300 Mg Tab.chew 500 Mg PO PRN BID PRN Trazodone Hcl 50 Mg Tablet 50 Mg PO QHS Multivitamins (Multivitamin) 1 Each Tablet 1 Each PO DAILY Maalox Maximum Strength Susp (Mag Hydrox/Al Hydrox/Simeth) 355 Ml Oral.susp 30 Ml PO PRN Q4HRS PRN Lansoprazole 30 Mg Capsule.dr 15 Mg PO DAILY Geodon (Ziprasidone Mesylate) 20 Mg Vial 0.5 Ml IM PRN Q6HRS PRN Escitalopram Oxalate 5 Mg Tablet 5 Mg PO DAILY Biscolax (Bisacodyl) 10 Mg Supp.rect 10 Mg RC PRN Q12HR PRN Ativan (Lorazepam) 1 Mg Tablet 0.5 Mg PO PRN Q6HRS PRN Aspirin 81 Mg Tab.chew 81 Mg PO DAILY Artificial Tears Drops (Dextran 70/Hypromellose/Pf) 1 Each Droperette 1 Each OU PRN Q12HR PRN Alendronate Sodium 70 Mg Tablet 70 Mg PO QWE I have reviewed the current psychotropics carefully including drug interactions. Risk benefit ratio favors no change other than as noted in my dictated progress note. Diagnosis: Problems: (1) Mood disorder (2) Anemia (3) Impulse control disorder, unspecified (4) Dementia in Alzheimer's disease with depression (5) Dementia in Alzheimer's disease with delusions KASSIDY POP MD March 24, 2019 22:15
--- NOTE | 2019-03-24 23:25 | NUR ---
Pt sitting quietly in the day room at shift change. Pt calm, pleasantly confused, and disorganized. Pt cooperative with assessment and compliant with medications crushed in pudding.
[2019-03-25 05:12] VITALS: BP 115/75
[2019-03-25 07:49] LABS: BASO % 1 % (0-3); EOS # 0.2 x10^3/uL (0.0-0.7); EOS % 4 % (0-3); HEMATOCRIT 33.6 % (36.0-47.0); HEMOGLOBIN 11.5 g/dL (12.0-15.5); LYMPH # 1.3 x10^3/uL (1.0-4.8); LYMPH % 31 % (24-48); MEAN CORPUSCULAR HEMOGLOBIN 32 pg (25-35); MEAN CORPUSCULAR HGB CONC 34 g/dL (31-37); MEAN CORPUSCULAR VOLUME 93 fL (79-100); MONO # 0.4 x10^3/uL (0.0-1.1); MONO % 10 % (0-9); NEUT # 2.3 x10^3uL (1.8-7.7); NEUT % 55 % (31-73); PLATELET COUNT 218 x10^3/uL (140-400); RED CELL DISTRIBUTION WIDTH 14.8 % (11.5-14.5); WHITE BLOOD COUNT 4.3 x10^3/uL (4.0-11.0)
[2019-03-25 08:01] LABS: ALBUMIN 3.6 g/dL (3.4-5.0); CALCIUM 10.1 mg/dL (8.5-10.1); GFR 54.1; TOTAL BILIRUBIN 0.5 mg/dL (0.2-1.0); TOTAL PROTEIN 7.3 g/dL (6.4-8.2)
[2019-03-25] MEDS: LACTOBACILLUS RHAMNOSUS GG 1 CAPSULE. PO SCH ×2 (08:02→20:05)
[2019-03-25] MEDS: ZIPRASIDONE 20 MG CAPSULE. PO SCH ×2 (08:03→20:05)
[2019-03-25] MEDS: PANTOPRAZOLE 40 MG TABLET. PO SCH (08:03)
[2019-03-25] MEDS: MULTIVITAMIN with MINERAL TABLET. PO SCH (08:03)
[2019-03-25] MEDS: ASPIRIN 81 MG TAB.CHEW PO SCH (08:04)
[2019-03-25] MEDS: CITALOPRAM 10 MG TABLET. PO SCH (08:04)
[2019-03-25] MEDS: ACETAMINOPHEN 325 MG TABLET PO SCH ×2 (08:04→20:05)
--- NOTE | 2019-03-25 14:47 | NUR ---
DANIEL sent updated pt. notes to Chela, Senior Technical Support Analyst at [facility].
--- NOTE | 2019-03-25 14:48 | NUR ---
[facility] Social Work Discharge Planning Form Patient Name JENNIFER GARCIA Admit Date: 03/09/2019 DISCHARGE PLAN Discharge Destination: [facility] Assessment: NA Level II Assessment: NA Transportation: [facility] to transport pt. on 03/28/2019 at 11:00 a.m. Special Instructions/Notes: Please fax discharge paperwork and medication list to [phone]. DISCHARGE TO FACILITY Facility: [facility] Address: [address] [place] [address] Contact Name: Chela, Staking Technician Contact Name: Nurse Nehemiah PCP: Dr. Mcdaniels Psychiatrist: Paz
[2019-03-25 16:17] VITALS: BP 122/77
[2019-03-25] MEDS: MIRTAZAPINE 7.5 MG TABLET. PO SCH (20:05)
[2019-03-25] MEDS: traZODone 50 MG TABLET. PO SCH (20:06)
--- NOTE | 2019-03-25 22:02 | NUR ---
Pt wandering in day room at shift change. Pt calm, interactive, and disorganized. Pt cooperative with assessment and compliant with medications administered crushed in pudding.
--- NOTE | 2019-03-25 22:27 | PDOC ---
Exam Note: Guero Note: Please also refer to the separate dictated note~for this date of service dictated separately.~Patient seen individually. Discussed the patient with Nursing staff reviewed the chart.~Reviewed interim history and current functioning. Reviewed vital signs,~Labs/ Radiology~and current medications noted below. Continue current treatment with the changes noted in the dictated addendum note Assessment: Vital Signs: Vital Signs Date Time Temp Pulse Resp B/P (MAP) Pulse Ox O2 Delivery O2 Flow Rate FiO2 03/25/19 16:17 97.4 82 17 122/77 (92) 99 Room Air I&O Intake and Output 03/25/19 06:59 Intake Total 360 ml Balance 360 ml Intake Oral 360 ml # Voids 1 Labs: Laboratory Tests Test 03/25/19 07:22 White Blood Count 4.3 x10^3/uL (4.0-11.0) Red Blood Count 3.60 x10^6/uL (3.50-5.40) Hemoglobin 11.5 g/dL (12.0-15.5) L Hematocrit 33.6 % (36.0-47.0) L Mean Corpuscular Volume 93 fL (79-100) Mean Corpuscular Hemoglobin 32 pg (25-35) Mean Corpuscular Hemoglobin Concent 34 g/dL (31-37) Red Cell Distribution Width 14.8 % (11.5-14.5) H Platelet Count 218 x10^3/uL (140-400) Neutrophils (%) (Auto) 55 % (31-73) Lymphocytes (%) (Auto) 31 % (24-48) Monocytes (%) (Auto) 10 % (0-9) H Eosinophils (%) (Auto) 4 % (0-3) H Basophils (%) (Auto) 1 % (0-3) Neutrophils # (Auto) 2.3 x10^3uL (1.8-7.7) Lymphocytes # (Auto) 1.3 x10^3/uL (1.0-4.8) Monocytes # (Auto) 0.4 x10^3/uL (0.0-1.1) Eosinophils # (Auto) 0.2 x10^3/uL (0.0-0.7) Basophils # (Auto) 0.0 x10^3/uL (0.0-0.2) Sodium Level 143 mmol/L (136-145) Potassium Level 4.0 mmol/L (3.5-5.1) Chloride Level 107 mmol/L (98-107) Carbon Dioxide Level 31 mmol/L (21-32) Anion Gap 5 (6-14) L Blood Urea Nitrogen 22 mg/dL (7-20) H Creatinine 1.0 mg/dL (0.6-1.0) Estimated GFR (Cockcroft-Gault) 54.1 BUN/Creatinine Ratio 22 (6-20) H Glucose Level 85 mg/dL (70-99) Calcium Level 10.1 mg/dL (8.5-10.1) Magnesium Level 2.0 mg/dL (1.8-2.4) Total Bilirubin 0.5 mg/dL (0.2-1.0) Aspartate Amino Transferase (AST) 24 U/L (15-37) Alanine Aminotransferase (ALT) 27 U/L (14-59) Alkaline Phosphatase 84 U/L (46-116) Total Protein 7.3 g/dL (6.4-8.2) Albumin 3.6 g/dL (3.4-5.0) Albumin/Globulin Ratio 1.0 (1.0-1.7) Current Medications: Meds: Current Medications Acetaminophen (Tylenol) 650 mg BID PO Last administered on 03/25/19at 20:05; Start 03/09/19 at 21:00 Lorazepam (Ativan) 0.5 mg PRN Q6HRS PRN PO Mood disorder Last administered on 03/19/19at 20:55; Start 03/09/19 at 20:00 Al Hydroxide/Mg Hydroxide (Mylanta Plus Xs) 30 ml PRN Q4HRS PRN PO GERD; Start 03/09/19 at 20:00 Acetaminophen (Tylenol) 325 mg PRN Q8HRS PRN PO MILD PAIN 1-3; Start 03/09/19 at 20:45 Alendronate Sodium (Fosamax) 70 mg WEEKLYAC PO Last administered on 03/23/19at 05:54; Start 03/16/19 at 07:00 Aspirin (Children'S Aspirin) 81 mg DAILY PO Last administered on 03/25/19at 08:04; Start 03/10/19 at 09:00 Bisacodyl (Dulcolax Supp) 10 mg PRN Q12HR PRN [place] CONSTIPATION; Start 03/09/19 at 21:00 Calcium Carbonate/ Glycine (Tums) 500 mg PRN BID PRN PO GERD; Start 03/09/19 at 21:00 Artificial Tears (Refresh Classic) 1 drop PRN Q12HR PRN OU DRY EYE; Start 03/09/19 at 21:00 Citalopram Hydrobromide (CeleXA) 10 mg DAILY PO Last administered on 03/25/19 08:04; Start 03/10/19 at 09:00 Pantoprazole Sodium (Protonix) 40 mg DAILY PO Last administered on 03/25/19 08:03; Start 03/10/19 at 09:00 Multivitamins/ Calcium (Thera-M Plus) 1 tab DAILY PO Last administered on 03/25/19 08:03; Start 03/10/19 at 09:00 Trazodone HCl (Desyrel) 50 mg QHS PO Last administered on 03/25/19 20:06; Start 03/09/19 at 21:00 Acetaminophen (Tylenol) 650 mg PRN Q6HRS PRN PO PAIN / TEMP; Start 03/09/19 at 22:15; Status UNV Multi-Ingredient Ointment (Analgesic [place]) 1 kevin PRN QID PRN TP MUSCLE PAIN; Start 03/09/19 at 22:15 Al Hydroxide/Mg Hydroxide (Mylanta Plus Xs) 15 ml PRN AFTMEALHC PRN PO DYSPEPSIA; Start 03/09/19 at 22:15; Status UNV Magnesium Hydroxide (Milk Of Magnesia) 2,400 mg PRN QHS PRN PO CONSTIPATION Last administered on 03/19/19at 22:20; Start 03/09/19 at 22:15 Levofloxacin (Levaquin) 500 mg DAILY06 PO Last administered on 03/13/19 05:54; Start 03/10/19 at 06:00; Stop 03/14/19 at 06:00; Status DC Lactobacillus Rhamnosus (Culturelle) 1 cap BID PO Last administered on 03/25/19 20:05; Start 03/10/19 at 21:00 Ziprasidone (Geodon) 20 mg QHS PO Last administered on 03/14/19 20:00; Start 03/10/19 at 21:00; Stop 03/15/19 at 17:23; Status DC Olanzapine (ZyPREXA ZYDIS) 2.5 mg PRN Q2HR PRN PO PSYCHOSIS Last administered on 03/21/19at 16:18; Start 03/12/19 at 23:45 Haloperidol Lactate (Haldol) 5 mg 1X ONCE IM Last administered on 03/13/19at 15:04; Start 03/13/19 at 15:15; Stop 03/13/19 at 15:16; Status DC Haloperidol Lactate (Haldol) 5 mg DAILY IM ; Start 03/14/19 at 09:00; Stop 03/15/19 at 17:23; Status DC Levofloxacin (Levaquin) 500 mg DAILY06 PO Last administered on 03/18/19at 05:01; Start 03/14/19 at 15:00; Stop 03/18/19 at 14:59; Status DC Ziprasidone (Geodon) 20 mg BID PO Last administered on 03/25/19at 20:05; Start 03/15/19 at 21:00 Vitamin D (Vitamin D3) 50,000 unit WEEKLY PO ; Start 03/18/19 at 16:00; Stop 03/18/19 at 16:27; Status DC Vitamin D (Vitamin D3) 50,000 unit WEEKLY PO Last administered on 03/19/19at 08:19; Start 03/19/19 at 09:00 Trazodone HCl (Desyrel) 50 mg PRN QHS PRN PO INSOMNIA Last administered on 03/19/19at 23:54; Start 03/19/19 at 23:30 Mirtazapine (Remeron) 7.5 mg QHS PO Last administered on 03/25/19at 20:05; Star t 03/21/19 at 21:00 Active Scripts Active Reported Tylenol (Acetaminophen) 325 Mg Tablet 650 Mg PO BID Tylenol (Acetaminophen) 325 Mg Capsule 325 Mg PO PRN Q8HRS PRN Tums (Calcium Carbonate) 300 Mg Tab.chew 500 Mg PO PRN BID PRN Trazodone Hcl 50 Mg Tablet 50 Mg PO QHS Multivitamins (Multivitamin) 1 Each Tablet 1 Each PO DAILY Maalox Maximum Strength Susp (Mag Hydrox/Al Hydrox/Simeth) 355 Ml Oral.susp 30 Ml PO PRN Q4HRS PRN Lansoprazole 30 Mg Capsule.dr 15 Mg PO DAILY Geodon (Ziprasidone Mesylate) 20 Mg Vial 0.5 Ml IM PRN Q6HRS PRN Escitalopram Oxalate 5 Mg Tablet 5 Mg PO DAILY Biscolax (Bisacodyl) 10 Mg Supp.rect 10 Mg RC PRN Q12HR PRN Ativan (Lorazepam) 1 Mg Tablet 0.5 Mg PO PRN Q6HRS PRN Aspirin 81 Mg Tab.chew 81 Mg PO DAILY Artificial Tears Drops (Dextran 70/Hypromellose/Pf) 1 Each Droperette 1 Each OU PRN Q12HR PRN Alendronate Sodium 70 Mg Tablet 70 Mg PO QWE I have reviewed the current psychotropics carefully including drug interactions. Risk benefit ratio favors no change other than as noted in my dictated progress note. Diagnosis: Problems: (1) Mood disorder (2) Impulse control disorder, unspecified (3) Dementia in Alzheimer's disease with depression (4) Dementia in Alzheimer's disease with delusions KASSIDY POP MD March 25, 2019 22:27
--- NOTE | 2019-03-25 23:17 | PN ---
DATE: 03/23/2019 PSYCHIATRIC PROGRESS NOTE This late entry 03/23/2019 covers elements not covered in my initial note. SUBJECTIVE: I met with the patient evening of 03/23/2019. The patient slept 7 hours previous night. She remains confused, somewhat anxious, but more redirectable. REVIEW OF SYSTEMS: No CV, , pulmonary, eye, ENT system symptoms on review. Reliability poor. MENTAL STATUS EXAM: Oriented to herself. Insight, judgment, recent and remote memory, attention, concentration, fund of knowledge poor, consistent with her diagnosis mentioned in my initial note. PLAN: No change from initial note. MAN Jose Maria POP MD DR: SCOTT/omer JOB#: [id number] / [id number]
--- NOTE | 2019-03-25 23:18 | PN ---
DATE: 03/24/2019 PSYCHIATRIC PROGRESS NOTE This late entry 03/24/2019 covers elements not covered in my initial note. SUBJECTIVE: I met with the patient in the evening of 03/24/2019, staffed at treatment team meeting earlier in the day. Appetite 100%, slept about 7 hours. The patient's son, Dipak, attended the treatment team meeting. We had a discussion about her current dosage of Risperdal and that consideration should be given to tapering at about 30 days post-discharge when she is back [facility]. REVIEW OF SYSTEMS: She ambulates DICTATION ENDS HERE. MAN Jose Maria POP MD DR: SCOTT/omer JOB#: [id number] / [id number]
--- NOTE | 2019-03-25 23:23 | PN ---
DATE: 03/23/2019 PSYCHIATRIC PROGRESS NOTE I had previously dictated a note on this patient for 03/23/2019, but unable to track it in the electronic medical records and I am repeating it again. The patient was seen individually in the evening of 03/23/2019. Discussed with nursing staff, reviewed the chart. The patient slept about 7 hours previous night and per nursing report, has done better. She remains confused. She ambulates independently. REVIEW OF SYSTEMS: No CV, , pulmonary, eye, ENT system symptoms on review. MENTAL STATUS EXAM: Oriented to herself. Insight, judgment, recent and remote memory, attention, concentration, fund of knowledge poor, consistent with her diagnosis mentioned in my initial note. PLAN: No change from initial note. She has completed a course of Levaquin for UTI. KASSIDY POP MD DR: SCOTT/omer JOB#: [id number] / [id number]
--- NOTE | 2019-03-25 23:29 | PN ---
DATE: 03/24/2019 PSYCHIATRIC PROGRESS NOTE This late entry 03/24/2019 covers elements not covered in my initial note. SUBJECTIVE: I met with the patient in the evening of 03/24/2019. The patient was also staffed at a treatment team meeting with the entire team in the morning of 03/24/2019 and the patient's son, Bhavesh, attended the conference. Reviewed the patient's diagnosis history. Appetite 100%. She slept 5 hours, compliant with medications. REVIEW OF SYSTEMS: No CV, , pulmonary, eye, ENT system symptoms on review. Reliability poor. MENTAL STATUS EXAM: Oriented to herself. Insight, judgment, recent and remote memory, attention, concentration, fund of knowledge poor, consistent with her diagnosis mentioned in my initial note. PLAN: No change from initial note for now. Maintain Ativan, Celexa, trazodone, Geodon was increased, Zyprexa and Remeron, and she has completed a course of Levaquin for UTI. KASSIDY POP MD DR: SCOTT/omer JOB#: [id number] / [id number]
[2019-03-26] MEDS ORDERED: CHOL500021 PO (01:48)
[2019-03-26] MEDS ORDERED: CITA10TA4 PO (01:49)
[2019-03-26] MEDS ORDERED: LACT1CAP21 PO (01:49)
[2019-03-26] MEDS ORDERED: METH29OI TP (01:50)
[2019-03-26] MEDS ORDERED: MAGN2400 PO (01:50)
[2019-03-26] MEDS ORDERED: MIRT15TA3 PO (01:51)
[2019-03-26] MEDS ORDERED: OLAN5TAB5 PO (02:00)
[2019-03-26] MEDS ORDERED: ZIPR20CA2 PO (02:03)
[2019-03-26] MEDS ORDERED: TRAZ-120 PO ×2 (02:05→02:13)
[2019-03-26 06:25] VITALS: BP 106/69
[2019-03-26] MEDS: ASPIRIN 81 MG TAB.CHEW PO SCH (08:28)
[2019-03-26] MEDS: LACTOBACILLUS RHAMNOSUS GG 1 CAPSULE. PO SCH ×2 (08:28→19:48)
[2019-03-26] MEDS: CITALOPRAM 10 MG TABLET. PO SCH (08:28)
[2019-03-26] MEDS: PANTOPRAZOLE 40 MG TABLET. PO SCH (08:28)
[2019-03-26] MEDS: ZIPRASIDONE 20 MG CAPSULE. PO SCH ×2 (08:28→19:48)
[2019-03-26] MEDS: MULTIVITAMIN with MINERAL TABLET. PO SCH (08:28)
[2019-03-26] MEDS: CHOLECALCIFEROL (VITAMIN D3) 50,000 UNIT CAPSULE PO SCH (08:29)
[2019-03-26] MEDS: ACETAMINOPHEN 325 MG TABLET PO SCH ×2 (08:29→19:48)
--- NOTE | 2019-03-26 11:28 | NUR ---
Pt is cooperative with medication and assessment. No physical aggression. No hallucinations, no delusions. Pt does like to wander at times. Pt did attempt to help calm a peer who was upset and agitated.
[2019-03-26 16:39] VITALS: BP 148/79
[2019-03-26] MEDS: MIRTAZAPINE 7.5 MG TABLET. PO SCH (19:48)
[2019-03-26] MEDS: traZODone 50 MG TABLET. PO SCH (19:49)
--- NOTE | 2019-03-26 21:49 | NUR ---
Pt wandering in the day room at shift change. Pt confused, disorganized, somewhat irritable this evening. Pt resistive with assessment and medications but cooperative and compliant with encouragement. Medications administered crushed in pudding.
--- NOTE | 2019-03-26 22:29 | PDOC ---
Exam Note: Guero Note: Please also refer to the separate dictated note~for this date of service dictated separately.~Patient seen individually. Discussed the patient with Nursing staff reviewed the chart.~Reviewed interim history and current functioning. Reviewed vital signs,~Labs/ Radiology~and current medications noted below. Continue current treatment with the changes noted in the dictated addendum note Assessment: Vital Signs: Vital Signs Date Time Temp Pulse Resp B/P (MAP) Pulse Ox O2 Delivery O2 Flow Rate FiO2 03/26/19 16:39 97.2 68 18 148/79 (102) 99 03/25/19 16:17 Room Air I&O Intake and Output 03/26/19 06:59 Intake Total 840 ml Balance 840 ml Intake Oral 840 ml Current Medications: Meds: Current Medications Acetaminophen (Tylenol) 650 mg BID PO Last administered on 03/26/19at 19:48; S tart 03/09/19 at 21:00 Lorazepam (Ativan) 0.5 mg PRN Q6HRS PRN PO Mood disorder Last administered on 03/19/19at 20:55; Start 03/09/19 at 20:00 Al Hydroxide/Mg Hydroxide (Mylanta Plus Xs) 30 ml PRN Q4HRS PRN PO GERD; Start 03/09/19 at 20:00 Acetaminophen (Tylenol) 325 mg PRN Q8HRS PRN PO MILD PAIN 1-3; Start 03/09/19 at 20:45 Alendronate Sodium (Fosamax) 70 mg WEEKLYAC PO Last administered on 03/23/19at 05:54; Start 03/16/19 at 07:00 Aspirin (Children'S Aspirin) 81 mg DAILY PO Last administered on 03/26/19at 08:28; Start 03/10/19 at 09:00 Bisacodyl (Dulcolax Supp) 10 mg PRN Q12HR PRN [place] CONSTIPATION; Start 03/09/19 at 21:00 Calcium Carbonate/ Glycine (Tums) 500 mg PRN BID PRN PO GERD; Start 03/09/19 at 21:00 Artificial Tears (Refresh Classic) 1 drop PRN Q12HR PRN OU DRY EYE; Start 03/09/19 at 21:00 Citalopram Hydrobromide (CeleXA) 10 mg DAILY PO Last administered on 03/26/19at 08:28; Start 03/10/19 at 09:00 Pantoprazole Sodium (Protonix) 40 mg DAILY PO Last administered on 03/26/19 08:28; Start 03/10/19 at 09:00 Multivitamins/ Calcium (Thera-M Plus) 1 tab DAILY PO Last administered on 03/26/19 08:28; Start 03/10/19 at 09:00 Trazodone HCl (Desyrel) 50 mg QHS PO Last administered on 03/26/19 19:49; Start 03/09/19 at 21:00 Acetaminophen (Tylenol) 650 mg PRN Q6HRS PRN PO PAIN / TEMP; Start 03/09/19 at 22:15; Status UNV Multi-Ingredient Ointment (Analgesic [place]) 1 gila PRN QID PRN TP MUSCLE PAIN; Start 03/09/19 at 22:15 Al Hydroxide/Mg Hydroxide (Mylanta Plus Xs) 15 ml PRN AFTMEALHC PRN PO DYSPEPSIA; Start 03/09/19 at 22:15; Status UNV Magnesium Hydroxide (Milk Of Magnesia) 2,400 mg PRN QHS PRN PO CONSTIPATION Last administered on 03/19/19 22:20; Start 03/09/19 at 22:15 Levofloxacin (Levaquin) 500 mg DAILY06 PO Last administered on 03/13/19 05:54; Start 03/10/19 at 06:00; Stop 03/14/19 at 06:00; Status DC Lactobacillus Rhamnosus (Culturelle) 1 cap BID PO Last administered on 03/26/19 19:48; Start 03/10/19 at 21:00 Ziprasidone (Geodon) 20 mg QHS PO Last administered on 03/14/19 20:00; Start 03/10/19 at 21:00; Stop 03/15/19 at 17:23; Status DC Olanzapine (ZyPREXA ZYDIS) 2.5 mg PRN Q2HR PRN PO PSYCHOSIS Last administered on 03/21/19 16:18; Start 03/12/19 at 23:45 Haloperidol Lactate (Haldol) 5 mg 1X ONCE IM Last administered on 03/13/19 15:04; Start 03/13/19 at 15:15; Stop 03/13/19 at 15:16; Status DC Haloperidol Lactate (Haldol) 5 mg DAILY IM ; Start 03/14/19 at 09:00; Stop 03/15/19 at 17:23; Status DC Levofloxacin (Levaquin) 500 mg DAILY06 PO Last administered on 03/18/19at 05:01; Start 03/14/19 at 15:00; Stop 03/18/19 at 14:59; Status DC Ziprasidone (Geodon) 20 mg BID PO Last administered on 03/26/19at 19:48; Start 03/15/19 at 21:00 Vitamin D (Vitamin D3) 50,000 unit WEEKLY PO ; Start 03/18/19 at 16:00; Stop 03/18/19 at 16:27; Status DC Vitamin D (Vitamin D3) 50,000 unit WEEKLY PO Last administered on 03/26/19at 08:29; Start 03/19/19 at 09:00 Trazodone HCl (Desyrel) 50 mg PRN QHS PRN PO INSOMNIA Last administered on 03/19/19at 23:54; Start 03/19/19 at 23:30 Mirtazapine (Remeron) 7.5 mg QHS PO Last administered on 03/26/19at 19:48; Start 03/21/19 at 21:00 Active Scripts Active Reported Trazodone Hcl 50 Mg Tablet 50 Mg PO PRN QHS PRN Trazodone Hcl 50 Mg Tablet 50 Mg PO QHS Geodon (Ziprasidone Hcl) 20 Mg Capsule 20 Mg PO BID Zyprexa Zydis (Olanzapine) 5 Mg Tab.rapdis 2.5 Mg PO PRN Q2HR PRN Mirtazapine 15 Mg Tablet 7.5 Mg PO QHS Analgesic [place] (Methyl Salicylate/Menthol) 28 Gm Oint...g. 1 [place] TP PRN QID PRN Milk Of Magnesia (Magnesium Hydroxide) 2,400 Mg/10 Ml Oral.susp 2,400 Mg PO PRN QHS PRN Culturelle (Lactobacillus Rhamnosus Gg) 1 Each Capsule 1 Each PO BID Citalopram Hbr (Citalopram Hydrobromide) 10 Mg Tablet 10 Mg PO DAILY D3-50 (Cholecalciferol (Vitamin D3)) 50,000 Unit Capsule 50,000 Unit PO WEEKLY Tylenol (Acetaminophen) 325 Mg Tablet 650 Mg PO BID Tylenol (Acetaminophen) 325 Mg Capsule 325 Mg PO PRN Q8HRS PRN Tums (Calcium Carbonate) 300 Mg Tab.chew 500 Mg PO PRN BID PRN Trazodone Hcl 50 Mg Tablet 50 Mg PO QHS Multivitamins (Multivitamin) 1 Each Tablet 1 Each PO DAILY Maalox Maximum Strength Susp (Mag Hydrox/Al Hydrox/Simeth) 355 Ml Oral.susp 30 Ml PO PRN Q4HRS PRN Lansoprazole 30 Mg Capsule.dr 15 Mg PO DAILY Geodon (Ziprasidone Mesylate) 20 Mg Vial 0.5 Ml IM PRN Q6HRS PRN Escitalopram Oxalate 5 Mg Tablet 5 Mg PO DAILY Biscolax (Bisacodyl) 10 Mg Supp.rect 10 Mg RC PRN Q12HR PRN Ativan (Lorazepam) 1 Mg Tablet 0.5 Mg PO PRN Q6HRS PRN Aspirin 81 Mg Tab.chew 81 Mg PO DAILY Artificial Tears Drops (Dextran 70/Hypromellose/Pf) 1 Each Droperette 1 Each OU PRN Q12HR PRN Alendronate Sodium 70 Mg Tablet 70 Mg PO QWE I have reviewed the current psychotropics carefully including drug interactions. Risk benefit ratio favors no change other than as noted in my dictated progress note. Diagnosis: Problems: (1) Gastroesophageal reflux disease (2) Mood disorder (3) Anemia (4) Impulse control disorder, unspecified (5) Impaired gait (6) Dementia in Alzheimer's disease with depression (7) Dementia in Alzheimer's disease with delusions KASSIDY POP MD Mar 26, 2019 22:29
[2019-03-27] MEDS: MAGNESIUM HYDROXIDE 2,400 MG/30 ML ORAL.SUSP. PO PRN (05:34)
[2019-03-27 06:01] VITALS: BP 132/81
[2019-03-27] MEDS: LACTOBACILLUS RHAMNOSUS GG 1 CAPSULE. PO SCH ×2 (09:21→20:31)
[2019-03-27] MEDS: ZIPRASIDONE 20 MG CAPSULE. PO SCH ×2 (09:22→20:32)
[2019-03-27] MEDS: ASPIRIN 81 MG TAB.CHEW PO SCH (09:22)
[2019-03-27] MEDS: ACETAMINOPHEN 325 MG TABLET PO SCH ×2 (09:22→20:32)
[2019-03-27] MEDS: PANTOPRAZOLE 40 MG TABLET. PO SCH (09:22)
[2019-03-27] MEDS: MULTIVITAMIN with MINERAL TABLET. PO SCH (09:22)
[2019-03-27] MEDS: CITALOPRAM 10 MG TABLET. PO SCH (09:22)
[2019-03-27 16:10] VITALS: BP 170/89
--- NOTE | 2019-03-27 18:00 | NUR ---
Patient was wandering in hallway at shift change, she has been wandering, restless, labile and irritable at times. She has been redirectable throughout. Will continue to monitor and report to oncoming shift.
[2019-03-27] MEDS: MIRTAZAPINE 7.5 MG TABLET. PO SCH (20:31)
[2019-03-27] MEDS: traZODone 50 MG TABLET. PO SCH (20:32)
--- NOTE | 2019-03-27 22:33 | PDOC ---
Exam Note: Guero Note: Please also refer to the separate dictated note~for this date of service dictated separately.~Patient seen individually. Discussed the patient with Nursing staff reviewed the chart.~Reviewed interim history and current functioning. Reviewed vital signs,~Labs/ Radiology~and current medications noted below. Continue current treatment with the changes noted in the dictated addendum note Assessment: Vital Signs: Vital Signs Date Time Temp Pulse Resp B/P (MAP) Pulse Ox O2 Delivery O2 Flow Rate FiO2 03/27/19 16:10 98.9 88 16 170/89 (116) 99 03/25/19 16:17 Room Air I&O Intake and Output 03/27/19 06:59 Intake Total 1200 ml Balance 1200 ml Intake Oral 1200 ml Current Medications: Meds: Current Medications Acetaminophen (Tylenol) 650 mg BID PO Last administered on 03/27/19at 20:32; Start 03/09/19 at 21:00 Lorazepam (Ativan) 0.5 mg PRN Q6HRS PRN PO Mood disorder Last administered on 03/19/19at 20:55; Start 03/09/19 at 20:00 Al Hydroxide/Mg Hydroxide (Mylanta Plus Xs) 30 ml PRN Q4HRS PRN PO GERD; Start 03/09/19 at 20:00 Acetaminophen (Tylenol) 325 mg PRN Q8HRS PRN PO MILD PAIN 1-3; Start 03/09/19 at 20:45 Alendronate Sodium (Fosamax) 70 mg WEEKLYAC PO Last administered on 03/23/19at 05:54; Start 03/16/19 at 07:00 Aspirin (Children'S Aspirin) 81 mg DAILY PO Last administered on 03/27/19at 09:22; Start 03/10/19 at 09:00 Bisacodyl (Dulcolax Supp) 10 mg PRN Q12HR PRN HI CONSTIPATION; Start 03/09/19 at 21:00 Calcium Carbonate/ Glycine (Tums) 500 mg PRN BID PRN PO GERD; Start 03/09/19 at 21:00 Artificial Tears (Refresh Classic) 1 drop PRN Q12HR PRN OU DRY EYE; Start 03/09/19 at 21:00 Citalopram Hydrobromide (CeleXA) 10 mg DAILY PO Last administered on 03/27/19at 09:22; Start 03/10/19 at 09:00 Pantoprazole Sodium (Protonix) 40 mg DAILY PO Last administered on 03/27/19 09:22; Start 03/10/19 at 09:00 Multivitamins/ Calcium (Thera-M Plus) 1 tab DAILY PO Last administered on 03/27/19 09:22; Start 03/10/19 at 09:00 Trazodone HCl (Desyrel) 50 mg QHS PO Last administered on 03/27/19 20:32; Start 03/09/19 at 21:00 Acetaminophen (Tylenol) 650 mg PRN Q6HRS PRN PO PAIN / TEMP; Start 03/09/19 at 22:15; Status UNV Multi-Ingredient Ointment (Analgesic [place]) 1 gila PRN QID PRN TP MUSCLE PAIN; Start 03/09/19 at 22:15 Al Hydroxide/Mg Hydroxide (Mylanta Plus Xs) 15 ml PRN AFTMEALHC PRN PO DYSPEPSIA; Start 03/09/19 at 22:15; Status UNV Magnesium Hydroxide (Milk Of Magnesia) 2,400 mg PRN QHS PRN PO CONSTIPATION Last administered on 03/27/19 05:34; Start 03/09/19 at 22:15 Levofloxacin (Levaquin) 500 mg DAILY06 PO Last administered on 03/13/19 05:54; Start 03/10/19 at 06:00; Stop 03/14/19 at 06:00; Status DC Lactobacillus Rhamnosus (Culturelle) 1 cap BID PO Last administered on 03/27/19 20:31; Start 03/10/19 at 21:00 Ziprasidone (Geodon) 20 mg QHS PO Last administered on 03/14/19 20:00; Start 03/10/19 at 21:00; Stop 03/15/19 at 17:23; Status DC Olanzapine (ZyPREXA ZYDIS) 2.5 mg PRN Q2HR PRN PO PSYCHOSIS Last administered on 03/21/19 16:18; Start 03/12/19 at 23:45 Haloperidol Lactate (Haldol) 5 mg 1X ONCE IM Last administered on 03/13/19 15:04; Start 03/13/19 at 15:15; Stop 03/13/19 at 15:16; Status DC Haloperidol Lactate (Haldol) 5 mg DAILY IM ; Start 03/14/19 at 09:00; Stop 03/15/19 at 17:23; Status DC Levofloxacin (Levaquin) 500 mg DAILY06 PO Last administered on 03/18/19at 05:01; Start 03/14/19 at 15:00; Stop 03/18/19 at 14:59; Status DC Ziprasidone (Geodon) 20 mg BID PO Last administered on 03/27/19at 20:32; Start 03/15/19 at 21:00 Vitamin D (Vitamin D3) 50,000 unit WEEKLY PO ; Start 03/18/19 at 16:00; Stop 03/18/19 at 16:27; Status DC Vitamin D (Vitamin D3) 50,000 unit WEEKLY PO Last administered on 03/26/19at 08:29; Start 03/19/19 at 09:00 Trazodone HCl (Desyrel) 50 mg PRN QHS PRN PO INSOMNIA Last administered on 03/19/19at 23:54; Start 03/19/19 at 23:30 Mirtazapine (Remeron) 7.5 mg QHS PO Last administered on 03/27/19at 20:31; Start 03/21/19 at 21:00 Active Scripts Active Reported Trazodone Hcl 50 Mg Tablet 50 Mg PO PRN QHS PRN Trazodone Hcl 50 Mg Tablet 50 Mg PO QHS Geodon (Ziprasidone Hcl) 20 Mg Capsule 20 Mg PO BID Zyprexa Zydis (Olanzapine) 5 Mg Tab.rapdis 2.5 Mg PO PRN Q2HR PRN Mirtazapine 15 Mg Tablet 7.5 Mg PO QHS Analgesic [place] (Methyl Salicylate/Menthol) 28 Gm Oint...g. 1 Gila TP PRN QID PRN Milk Of Magnesia (Magnesium Hydroxide) 2,400 Mg/10 Ml Oral.susp 2,400 Mg PO PRN QHS PRN Culturelle (Lactobacillus Rhamnosus Gg) 1 Each Capsule 1 Each PO BID Citalopram Hbr (Citalopram Hydrobromide) 10 Mg Tablet 10 Mg PO DAILY D3-50 (Cholecalciferol (Vitamin D3)) 50,000 Unit Capsule 50,000 Unit PO WEEKLY Tylenol (Acetaminophen) 325 Mg Tablet 650 Mg PO BID Tylenol (Acetaminophen) 325 Mg Capsule 325 Mg PO PRN Q8HRS PRN Tums (Calcium Carbonate) 300 Mg Tab.chew 500 Mg PO PRN BID PRN Trazodone Hcl 50 Mg Tablet 50 Mg PO QHS Multivitamins (Multivitamin) 1 Each Tablet 1 Each PO DAILY Maalox Maximum Strength Susp (Mag Hydrox/Al Hydrox/Simeth) 355 Ml Oral.susp 30 Ml PO PRN Q4HRS PRN Lansoprazole 30 Mg Capsule.dr 15 Mg PO DAILY Geodon (Ziprasidone Mesylate) 20 Mg Vial 0.5 Ml IM PRN Q6HRS PRN Escitalopram Oxalate 5 Mg Tablet 5 Mg PO DAILY Biscolax (Bisacodyl) 10 Mg Supp.rect 10 Mg RC PRN Q12HR PRN Ativan (Lorazepam) 1 Mg Tablet 0.5 Mg PO PRN Q6HRS PRN Aspirin 81 Mg Tab.chew 81 Mg PO DAILY Artificial Tears Drops (Dextran 70/Hypromellose/Pf) 1 Each Droperette 1 Each OU PRN Q12HR PRN Alendronate Sodium 70 Mg Tablet 70 Mg PO QWE I have reviewed the current psychotropics carefully including drug interactions. Risk benefit ratio favors no change other than as noted in my dictated progress note. Diagnosis: Problems: (1) Mood disorder (2) Anemia (3) Impulse control disorder, unspecified (4) Dementia in Alzheimer's disease with depression (5) Dementia in Alzheimer's disease with delusions KASSIDY POP MD Mar 27, 2019 22:33
--- NOTE | 2019-03-27 23:46 | NUR ---
Nursing Note Pt pleasant calm and cooperative. Compliant with meds. Denies other complaints.
--- NOTE | 2019-03-28 06:01 | PN ---
DATE: 03/25/2019 PSYCHIATRIC PROGRESS NOTE This late entry 03/25/2019 covers elements not covered in my initial note. SUBJECTIVE: I met with the patient in the evening. The patient slept 7 hours previous night. She is confused, wandering. No aggression previous night, wandering in the morning, resistive to meds in the morning, better later in the day. REVIEW OF SYSTEMS: No CV, , pulmonary, eye, ENT system symptoms on review. Reliability poor. MENTAL STATUS EXAM: Oriented to herself. Insight, judgment, recent and remote memory, attention, concentration, fund of knowledge poor, consistent with her diagnosis mentioned in my initial note. PLAN: No change from initial note. KASSIDY POP MD DR: SCOTT/omer JOB#: [id number] / [id number]
[2019-03-28 06:14] VITALS: BP 107/58
--- NOTE | 2019-03-28 06:53 | PN ---
DATE: 03/26/2019 PSYCHIATRIC PROGRESS NOTE This late entry 03/26/2019 covers elements not covered in my initial note. SUBJECTIVE: I met with the patient in the evening. The patient slept 7-1/2 hours previous night. The patient remains confused, anxious, disorganized, wandering, compliant with medications, crushed. REVIEW OF SYSTEMS: No CV, , pulmonary, eye, ENT system symptoms on review. Reliability poor. MENTAL STATUS EXAM: Oriented to herself. Insight, judgment, recent and remote memory, attention, concentration, fund of knowledge poor, consistent with her diagnosis mentioned in my initial note. PLAN: No change from initial note. KASSIDY POP MD DR: SCOTT/omer JOB#: [id number] / [id number]
--- NOTE | 2019-03-28 07:32 | PN ---
DATE: 03/27/2019 PSYCHIATRIC PROGRESS NOTE This note covers elements not covered in my initial note 03/27/2019. SUBJECTIVE: I met with the patient in the evening. The patient slept 6-3/4 hours previous night. The patient remains confused. Reportedly, her son called her on the phone, nursing staff remarked that his verbalizations were unclear on the phone. She has been irritable, wandering, labile at times. REVIEW OF SYSTEMS: No CV, , pulmonary, eye, ENT system symptoms on review. Reliability poor. MENTAL STATUS EXAM: Oriented to herself. Insight, judgment, recent and remote memory, attention, concentration, fund of knowledge poor, consistent with her diagnosis mentioned in my initial note. PLAN: No change from initial note. MAN Jose Maria POP MD DR: SCOTT/omer JOB#: [id number] / [id number]
[2019-03-28] MEDS: ASPIRIN 81 MG TAB.CHEW PO SCH (08:14)
[2019-03-28] MEDS: PANTOPRAZOLE 40 MG TABLET. PO SCH (08:14)
[2019-03-28] MEDS: CITALOPRAM 10 MG TABLET. PO SCH (08:14)
[2019-03-28] MEDS: ZIPRASIDONE 20 MG CAPSULE. PO SCH (08:15)
[2019-03-28] MEDS: LACTOBACILLUS RHAMNOSUS GG 1 CAPSULE. PO SCH (08:15)
[2019-03-28] MEDS: ACETAMINOPHEN 325 MG TABLET PO SCH (08:15)
[2019-03-28] MEDS: MULTIVITAMIN with MINERAL TABLET. PO SCH (08:15)
--- NOTE | 2019-03-28 11:06 | NUR ---
Patient was wandering in hallway at shift change. She has been wandering, restless, and pleasantly confused. Patient compliant with meds and assessments. Will continue to monitor
--- NOTE | 2019-03-28 11:58 | NUR ---
Transition Record was faxed to follow-up provider with the following elements: Reason for admission, procedures, tests, principal diagnosis, pending studies, patient instructions, 18/05 contact information for unit, phone number to obtain pending test results, plan for follow-up care, physician follow-up, advanced directive information, and medication list with dose, duration and instructions. This information was included in the following documents: History and physical, lab results, study results, progress notes, social work planning form, DC instruction form, patient visit summary, and medication reconciliation form. Date & time record faxed: [id number] March 2019 Record faxed to: Nicolas John Record discussed with/ report given to: MADY Martinez at [facility]
--- NOTE | 2019-03-28 22:31 | PDOC ---
Exam Note: Guero Note: Please also refer to the separate dictated note~for this date of service dictated separately.~Patient seen individually. Discussed the patient with Nursing staff reviewed the chart.~Reviewed interim history and current functioning. Reviewed vital signs,~Labs/ Radiology~and current medications noted below. Continue current treatment with the changes noted in the dictated addendum note Assessment: Vital Signs: Vital Signs Date Time Temp Pulse Resp B/P (MAP) Pulse Ox O2 Delivery O2 Flow Rate FiO2 03/28/19 06:14 98.1 75 18 107/58 (74) 96 03/25/19 16:17 Room Air I&O Intake and Output 03/28/19 07:00 Intake Total 840 ml Balance 840 ml Intake Oral 840 ml # Bowel Movements 1 Current Medications: Meds: Current Medications Acetaminophen (Tylenol) 650 mg BID PO Last administered on 03/28/19at 08:15; Start 03/09/19 at 21:00; Stop 03/28/19 at 12:02; Status DC Lorazepam (Ativan) 0.5 mg PRN Q6HRS PRN PO Mood disorder Last administered on 03/19/19at 20:55; Start 03/09/19 at 20:00; Stop 03/28/19 at 12:02; Status DC Al Hydroxide/Mg Hydroxide (Mylanta Plus Xs) 30 ml PRN Q4HRS PRN PO GERD; Start 03/09/19 at 20:00; Stop 03/28/19 at 12:02; Status DC Acetaminophen (Tylenol) 325 mg PRN Q8HRS PRN PO MILD PAIN 1-3; Start 03/09/19 at 20:45; Stop 03/28/19 at 12:02; Status DC Alendronate Sodium (Fosamax) 70 mg WEEKLYAC PO Last administered on 03/23/19at 05:54; Start 03/16/19 at 07:00; Stop 03/28/19 at 12:02; Status DC Aspirin (Children'S Aspirin) 81 mg DAILY PO Last administered on 03/28/19at 08:14; Start 03/10/19 at 09:00; Stop 03/28/19 at 12:02; Status DC Bisacodyl (Dulcolax Supp) 10 mg PRN Q12HR PRN IN CONSTIPATION; Start 03/09/19 at 21:00; Stop 03/28/19 at 12:02; Status DC Calcium Carbonate/ Glycine (Tums) 500 mg PRN BID PRN PO GERD; Start 03/09/19 at 21:00; Stop 03/28/19 at 12:02; Status DC Artificial Tears (Refresh Classic) 1 drop PRN Q12HR PRN OU DRY EYE; Start 03/09/19 at 21:00; Stop 03/28/19 at 12:02; Status DC Citalopram Hydrobromide (CeleXA) 10 mg DAILY PO Last administered on 03/28/19at 08:14; Start 03/10/19 at 09:00; Stop 03/28/19 at 12:02; Status DC Pantoprazole Sodium (Protonix) 40 mg DAILY PO Last administered on 03/28/19at 08:14; Start 03/10/19 at 09:00; Stop 03/28/19 at 12:02; Status DC Multivitamins/ Calcium (Thera-M Plus) 1 tab DAILY PO Last administered on 03/28/19at 08:15; Start 03/10/19 at 09:00; Stop 03/28/19 at 12:02; Status DC Trazodone HCl (Desyrel) 50 mg QHS PO Last administered on 03/27/19at 20:32; St art 03/09/19 at 21:00; Stop 03/28/19 at 12:02; Status DC Acetaminophen (Tylenol) 650 mg PRN Q6HRS PRN PO PAIN / TEMP; Start 03/09/19 at 22:15; Status UNV Multi-Ingredient Ointment (Analgesic [place]) 1 gila PRN QID PRN TP MUSCLE PAIN; Start 03/09/19 at 22:15; Stop 03/28/19 at 12:02; Status DC Al Hydroxide/Mg Hydroxide (Mylanta Plus Xs) 15 ml PRN AFTMEALHC PRN PO DYSPEPSIA; Start 03/09/19 at 22:15; Status UNV Magnesium Hydroxide (Milk Of Magnesia) 2,400 mg PRN QHS PRN PO CONSTIPATION Last administered on 03/27/19at 05:34; Start 03/09/19 at 22:15; Stop 03/28/19 at 12:02; Status DC Levofloxacin (Levaquin) 500 mg DAILY06 PO Last administered on 03/13/19 05:54; Start 03/10/19 at 06:00; Stop 03/14/19 at 06:00; Status DC Lactobacillus Rhamnosus (Culturelle) 1 cap BID PO Last administered on 03/28/19 08:15; Start 03/10/19 at 21:00; Stop 03/28/19 at 12:02; Status DC Ziprasidone (Geodon) 20 mg QHS PO Last administered on 03/14/19at 20:00; Start 03/10/19 at 21:00; Stop 03/15/19 at 17:23; Status DC Olanzapine (ZyPREXA ZYDIS) 2.5 mg PRN Q2HR PRN PO PSYCHOSIS Last administered on 03/21/19 16:18; Start 03/12/19 at 23:45; Stop 03/28/19 at 12:02; Status DC Haloperidol Lactate (Haldol) 5 mg 1X ONCE IM Last administered on 03/13/19 15:04; Start 03/13/19 at 15:15; Stop 03/13/19 at 15:16; Status DC Haloperidol Lactate (Haldol) 5 mg DAILY IM ; Start 03/14/19 at 09:00; Stop 03/15/19 at 17:23; Status DC Levofloxacin (Levaquin) 500 mg DAILY06 PO Last administered on 03/18/19 05:01; Start 03/14/19 at 15:00; Stop 03/18/19 at 14:59; Status DC Ziprasidone (Geodon) 20 mg BID PO Last administered on 03/28/19 08:15; Start 03/15/19 at 21:00; Stop 03/28/19 at 12:02; Status DC Vitamin D (Vitamin D3) 50,000 unit WEEKLY PO ; Start 03/18/19 at 16:00; Stop 03/18/19 at 16:27; Status DC Vitamin D (Vitamin D3) 50,000 unit WEEKLY PO Last administered on 03/26/19 08:29; Start 03/19/19 at 09:00; Stop 03/28/19 at 12:02; Status DC Trazodone HCl (Desyrel) 50 mg PRN QHS PRN PO INSOMNIA Last administered on 03/19/19at 23:54; Start 03/19/19 at 23:30; Stop 03/28/19 at 12:02; Status DC Mirtazapine (Remeron) 7.5 mg QHS PO Last administered on 03/27/19at 20:31; Start 03/21/19 at 21:00; Stop 03/28/19 at 12:02; Status DC Active Scripts Active Reported Trazodone Hcl 50 Mg Tablet 50 Mg PO PRN QHS PRN Trazodone Hcl 50 Mg Tablet 50 Mg PO QHS Geodon (Ziprasidone Hcl) 20 Mg Capsule 20 Mg PO BID Zyprexa Zydis (Olanzapine) 5 Mg Tab.rapdis 2.5 Mg PO PRN Q2HR PRN Mirtazapine 15 Mg Tablet 7.5 Mg PO QHS Analgesic [place] (Methyl Salicylate/Menthol) 28 Gm Oint...g. 1 Gila TP PRN QID PRN Milk Of Magnesia (Magnesium Hydroxide) 2,400 Mg/10 Ml Oral.susp 2,400 Mg PO PRN QHS PRN Culturelle (Lactobacillus Rhamnosus Gg) 1 Each Capsule 1 Each PO BID Citalopram Hbr (Citalopram Hydrobromide) 10 Mg Tablet 10 Mg PO DAILY D3-50 (Cholecalciferol (Vitamin D3)) 50,000 Unit Capsule 50,000 Unit PO WEEKLY Tylenol (Acetaminophen) 325 Mg Tablet 650 Mg PO BID Tylenol (Acetaminophen) 325 Mg Capsule 325 Mg PO PRN Q8HRS PRN Tums (Calcium Carbonate) 300 Mg Tab.chew 500 Mg PO PRN BID PRN Multivitamins (Multivitamin) 1 Each Tablet 1 Each PO DAILY Maalox Maximum Strength Susp (Mag Hydrox/Al Hydrox/Simeth) 355 Ml Oral.susp 30 Ml PO PRN Q4HRS PRN Lansoprazole 30 Mg Capsule.dr 15 Mg PO DAILY Biscolax (Bisacodyl) 10 Mg Supp.rect 10 Mg RC PRN Q12HR PRN Ativan (Lorazepam) 1 Mg Tablet 0.5 Mg PO PRN Q6HRS PRN Aspirin 81 Mg Tab.chew 81 Mg PO DAILY Artificial Tears Drops (Dextran 70/Hypromellose/Pf) 1 Each Droperette 1 Each OU PRN Q12HR PRN Alendronate Sodium 70 Mg Tablet 70 Mg PO QWE I have reviewed the current psychotropics carefully including drug interactions. Risk benefit ratio favors no change other than as noted in my dictated progress note. Diagnosis: Problems: (1) Mood disorder (2) Anemia (3) Impulse control disorder, unspecified (4) Dementia in Alzheimer's disease with depression (5) Dementia in Alzheimer's disease with delusions KASSIDY POP MD Mar 28, 2019 22:31
--- NOTE | 2019-03-29 20:39 | DS ---
DATE OF DISCHARGE: 03/28/2019 DISCHARGE SUMMARY/PSYCHIATRIC PROGRESS NOTE This late entry 03/28/2019 covers elements not covered in my initial note. REASON FOR ADMISSION: Please refer to the admission history for details. Briefly, the patient is a 73-year-old female referred to us from [facility] by her primary care physician on account of increasing agitation, irritability, anxiety. The patient was reportedly throwing coffee at another resident. She was following other residents and causing them to be upset. She is pushing people in wheelchair without their permission. She was combative with staff. Behaviors were deemed dangerous, unmanageable at the facility, had failed outpatient psychiatric interventions resulting in this referral. SIGNIFICANT FINDINGS AND CLINICAL COURSE: Following admission, the patient was seen daily individually by myself from a psychiatric standpoint, medical followup per Dr. Cordero. The patient did have a UTI on admission, was treated on a course of Levaquin. Repeat UA at the end of this was negative. Adjustments were made in her psychotropics and she seemed to respond to a combination of Celexa 10 mg a day, trazodone 50 mg at bedtime, may repeat x 1. Geodon was increased to 20 mg b.i.d., Zyprexa was p.r.n., Remeron 7.5 mg p.o. at bedtime for her insomnia, anxiety, and Ativan p.r.n. for anxiety. Gradually, her mood appeared to improve. She remained confused, but much more pleasant, even though she was disorganized. REVIEW OF SYSTEMS: Prior to discharge on 03/28/2019, no CV, , pulmonary, eye, ENT system symptoms on review. Reliability poor. MENTAL STATUS EXAM: Oriented to herself. Insight, judgment, recent and remote memory, attention, concentration, fund of knowledge poor, consistent with her diagnoses. FINAL DIAGNOSES: Major neurocognitive disorder, Alzheimer, vascular with delusion, depression, behavioral disturbance; anxiety disorder, unspecified; impulse control disorder, unspecified; status post urinary tract infection. Rest unchanged from admission. DISCHARGE MEDICATIONS: Please refer to the MRAD. DISCHARGE INSTRUCTIONS: Outpatient psychiatric and medical followup at the [facility]. Time for discharge day management greater than 30 minutes. KASSIDY POP MD DR: SCOTT/omer JOB#: [id number] / [id number]
== END 2019-03-28 12:01 | DRG 57 ==
LOC: ER 16:02 → GEROPSY 19:35
PROVIDERS: ADMIT Psychiatry & Neurology Psychiatry; ATTEND Psychiatry & Neurology Psychiatry
DX: G30.9 Alzheimer's disease, unspecified (principal); F01.51 Vascular dementia, unspecified severity, with behavioral disturbance; F02.81 Dementia in other diseases classified elsewhere, unspecified severity, with behavioral disturbance; N39.0 Urinary tract infection, site not specified; F32.9 Major depressive disorder, single episode, unspecified; F41.9 Anxiety disorder, unspecified; G47.00 Insomnia, unspecified; E87.6 Hypokalemia; F63.9 Impulse disorder, unspecified; G89.4 Chronic pain syndrome; H04.129 Dry eye syndrome of unspecified lacrimal gland; Z86.711 Personal history of pulmonary embolism; K21.9 Gastro-esophageal reflux disease without esophagitis; M19.90 Unspecified osteoarthritis, unspecified site; Z79.82 Long term (current) use of aspirin; Z79.83 Long term (current) use of bisphosphonates; Z79.899 Other long term (current) drug therapy; Z87.440 Personal history of urinary (tract) infections; Z90.710 Acquired absence of both cervix and uterus; Z98.41 Cataract extraction status, right eye; Z98.42 Cataract extraction status, left eye
CPT/HCPCS: 36415; 71045; 80053; 80061; 80307; 81001; 82306; 83036; 83540; 83550; 83735; 84436; 84443; 84480; 85025; 85027; 86592; 87086; 87186; 93005; G0480; J1630; P9612; 99285-25

== ENCOUNTER 2019-09-12 16:17 | Inpatient (IN) | payer MEDICARE, OTHER ==
[~2019-09-12] VITALS: Ht 165.1 cm; Wt 70.8 kg
[~2019-09-12 16:17] MED LIST: ACET325C6 PO; ACET325T9 PO; ALEN70TA6 PO; ASPI-630 PO; BISA10SU14 RC; CALC300T5 PO; CHOL500021 PO; CITA10TA4 PO; DEXT1DRO8 OU; ESCITALOPRAM OXA5 MG PO; LACT1CAP21 PO; LANS30CA PO; LORA-254 PO; MAG355OR12 PO; MAGN2400 PO; METH28OI2 TP; MIRT15TA3 PO; MULT1TAB52 PO; OLAN5TAB5 PO; TRAZ-120 PO; ZIPR20CA2 PO; ZIPR20VI IM
[2019-09-12] MEDS ORDERED: LORA-254 PO (16:46)
[2019-09-12] MEDS ORDERED: SULF1TAB24 PO (16:46)
[2019-09-12] MEDS ORDERED: SENN8.8S5 PO (16:46)
[2019-09-12] MEDS ORDERED: IBUP-571 PO (16:46)
[2019-09-12] MEDS ORDERED: HYDR-3165 PO (16:46)
[2019-09-12 18:09] VITALS: BP 143/87
[2019-09-12] MEDS ORDERED: MAG HYDROX/AL HYDROX/SIMETH 30 ML ORAL.SUSP PO PRN ×2 (18:15→22:15)
[2019-09-12] MEDS ORDERED: MAGNESIUM HYDROXIDE 2,400 MG/30 ML ORAL.SUSP. PO PRN (18:15)
[2019-09-12] MEDS ORDERED: METHYL SALICYLATE/MENTHOL TOPICAL OINTMENT 57GM TUBE. TP PRN (18:15)
[2019-09-12] MEDS ORDERED: ACETAMINOPHEN 325 MG TABLET PO PRN ×2 (18:15→22:45)
--- NOTE | 2019-09-12 20:12 | PDOC ---
Exam Note: Guero Note: Please also refer to the separate dictated note~for this date of service dictated separately. Discussed the patient with Nursing staff reviewed the chart.~Reviewed interim history and current functioning. Reviewed vital signs,~Labs/ Radiology~and current medications noted below. Continue current treatment with the changes noted in the dictated addendum note Assessment: Vital Signs/I&O: Vital Signs Date Time Temp Pulse Resp B/P (MAP) Pulse Ox O2 Delivery O2 Flow Rate FiO2 09/12/19 18:09 98.8 99 18 143/87 (105) 96 Current Medications: I have reviewed the current psychotropics carefully including drug interactions. Risk benefit ratio favors no change other than as noted in my dictated progress note. Diagnosis: Problems: (1) Impulse control disorder, unspecified (2) Impaired gait (3) Dementia in Alzheimer's disease with depression (4) Dementia in Alzheimer's disease with delusions KASSIDY POP MD Sep 12, 2019 20:12
[2019-09-12] MEDS ORDERED: NON FORMULARY ITEM (Magnesium Hydroxide (Milk Of Magnesia) 2,400 MG) PO PRN (22:15)
[2019-09-12] MEDS ORDERED: BISACODYL 10 MG SUPP.RECT RC PRN (22:15)
[2019-09-12] MEDS ORDERED: NON FORMULARY ITEM (Methyl Salicylate/Menthol (Analgesic Balm) 1 APP) TP PRN (22:15)
[2019-09-12] MEDS ORDERED: MIRTAZAPINE 7.5 MG TABLET. PO SCH (22:30)
[2019-09-12] MEDS: traZODone 50 MG TABLET. PO SCH (22:39)
[2019-09-12] MEDS: LORazepam 1 MG TABLET PO SCH (22:39)
[2019-09-12] MEDS ORDERED: CALCIUM CARBONATE 500 MG TAB.CHEW PO PRN (22:45)
[2019-09-12] MEDS ORDERED: POLYVINYL ALCOHOL/POVIDONE/PF OPHTH SOLUTION DROPERETTE. OU PRN (22:45)
[2019-09-12] MEDS: SENNOSIDES 8.6 MG TABLET PO SCH (22:51)
[2019-09-13] MEDS: SMZ/TMP 800/160MG TABLET. PO SCH ×3 (00:41→20:34)
[2019-09-13 06:24] VITALS: BP 114/71
[2019-09-13 07:18] LABS: BASO % 1 % (0-3); EOS # 0.1 x10^3/uL (0.0-0.7); EOS % 3 % (0-3); HEMATOCRIT 33.3 % (36.0-47.0); LYMPH # 1.1 x10^3/uL (1.0-4.8); LYMPH % 28 % (24-48); MEAN CORPUSCULAR HEMOGLOBIN 31 pg (25-35); MEAN CORPUSCULAR HGB CONC 33 g/dL (31-37); MEAN CORPUSCULAR VOLUME 94 fL (79-100); MONO # 0.5 x10^3/uL (0.0-1.1); MONO % 13 % (0-9); NEUT # 2.1 x10^3uL (1.8-7.7); NEUT % 55 % (31-73); PLATELET COUNT 200 x10^3/uL (140-400); RED BLOOD COUNT 3.55 x10^6/uL (3.50-5.40); WHITE BLOOD COUNT 3.8 x10^3/uL (4.0-11.0)
[2019-09-13 07:32] LABS: ALBUMIN 3.3 g/dL (3.4-5.0); ALBUMIN/GLOBULIN RATIO 0.8 (1.0-1.7); CALCIUM 9.8 mg/dL (8.5-10.1); CREATININE 0.9 mg/dL (0.6-1.0); GFR 60.9; POTASSIUM 4.2 mmol/L (3.5-5.1); TOTAL BILIRUBIN 0.6 mg/dL (0.2-1.0); TOTAL PROTEIN 7.6 g/dL (6.4-8.2)
[2019-09-13] MEDS: LORazepam 1 MG TABLET PO SCH ×3 (08:39→20:33)
[2019-09-13] MEDS: CITALOPRAM 10 MG TABLET. PO SCH (08:40)
[2019-09-13] MEDS: LACTOBACILLUS RHAMNOSUS GG 1 CAPSULE. PO SCH ×2 (08:40→20:34)
[2019-09-13] MEDS: traZODone 50 MG TABLET. PO SCH ×4 (08:40→20:34)
[2019-09-13] MEDS: PANTOPRAZOLE 40 MG TABLET. PO SCH (08:40)
[2019-09-13] MEDS: ASPIRIN 81 MG TAB.CHEW PO SCH (08:40)
--- NOTE | 2019-09-13 13:59 | HP ---
ADMIT DATE: 09/12/2019 This late entry 09/12/2019 covers the elements not covered in my initial note. I met with the patient in the evening of 09/12/2019. Discussed with nursing staff, reviewed the chart, also discussed with Mary Lou Justin, communication coordinator. IDENTIFYING DATA: The patient is a 74-year-old female referred to us from the [facility] Emergency Room where she presented from [facility] on account of increasing agitation, confusion, being combative in the ER, biting staff, hollering out, spitting, agitated, threatening to hit staff, hostile, paranoid with flight of ideas. This is within the context of her dementia, Alzheimer's, vascular with delusion, depression, behavioral disturbance, major neurocognitive disorder. Additionally, she has had a recent UTI. She has failed outpatient psychiatric interventions. Behaviors have been dangerous, unmanageable at the facility resulting in this referral to us by Dr. Mcdaniels, her primary care physician. CHIEF COMPLAINT: "No." The patient was yelling, hollering and agitated as I met with her. HISTORY OF PRESENT ILLNESS: The patient has a history of dementia, Alzheimer's vascular type. She was back here with us in February of this year, since then has been at the residential, doing reasonably well, though she has been confused. Recently, she has been increasingly agitated, aggressive, disruptive with sleep and appetite changes, marked mood vacillations, but within the context of UTI. Behaviors have been dangerous, unmanageable, resulting in this referral. No clear history of bipolar disorder. PAST PSYCHIATRIC HISTORY: As above. MEDICAL HISTORY: Positive for UTI, anemia, GERD, chronic constipation, osteoarthritis, status post pulmonary embolism, recurrent falls. ACCU-CHEKS: None. CODE STATUS: DNR. ALLERGIES: Negative. DIET: Mechanical soft. Ambulates ad-fabio, unsteady, multiple falls. UA, on Bactrim until 09/18/2019. CURRENT PSYCHOTROPICS: Celexa 10 mg a day; Ativan 0.25 b.i.d., 0.5 at bedtime; Remeron 7.5 mg at bedtime; trazodone 25 mg t.i.d.; trazodone 50 mg at bedtime. FAMILY HISTORY: Noncontributory. SOCIAL HISTORY: No history of alcohol, drug abuse. PHYSICAL, SEXUAL OR ELDER ABUSE: She is not known to be a perpetrator. REACTION TO HOSPITALIZATION: The patient oblivious of this. ASSETS: Supportive, living at the nursing facility. MENTAL STATUS EXAMINATION: The patient was seen individually evening of 09/12/2019. She is anxious, restless, yelling, agitated, oriented to herself. Insight, judgment, recent and remote memory, attention, concentration, fund of knowledge poor, consistent with her diagnoses. IMPRESSION: Major neurocognitive disorder, Alzheimer, vascular with delusion, depression, behavioral disturbance; anxiety disorder, unspecified; impulse control disorder, unspecified; urinary tract infection, rest as above. PLAN: Admit to Geropsychiatry Unit at [facility]. I will see the patient daily individually from a psychiatric standpoint. Medical follow up with Dr. Cordero. Continue the patient on her current psychotropics. Observe baseline. Treat the UTI. Adjust further as clinically indicated. ESTIMATED LENGTH OF STAY: 10-12 days. DISPOSITION: Plans back to residential when stable. MAN Jose Maria POP MD DR: SCOTT/omer JOB#: [id number] / [id number]
--- NOTE | 2019-09-13 15:44 | TX PLAN ---
Interdisciplinary Tx Plan Admission Information Sep 12, 2019 at 16:55 Legal Status (on Admission): Voluntary DPOA/Guardian Name: Sedrick Villalobos DPOA Contact Other Contact Name: [facility] Other Contact Verified Code Status: DNR Allergies: Coded Allergies: No Known Drug Allergies (Unverified , 03/09/19) Estimated Length of Stay: 10 Diagnoses Primary Diagnosis: Major Neurocognitive Disorder, Alzheimers, Vascular with Delusions, Depression, BD, Anxiety Disorder Unspecified, Impulse Control Disorder Unspecified Reasons for Admission: Aggressive, Agitated, Combative, Suspicious/paranoid, Poor impulse control Problem in Patient's Words: Pt. is unable to verbalize answers. Problems Active Problems: Pt. was combative in the ER, biting staff in ER, hollering out, spitting, agitation, threatening to hit staff, hostile, paranoid, and flight of ideas. Inactive Problems: Pt. is medication compliant. Pt Strengths/Limitations Ability for [place]: Poor Cognitive Functioning/Ability: Poor Communication Skills/Ability: Poor Financial Resources: Good Insight/Judgement: Poor Intellectual Ability: Poor Physical Health: Poor Social Skills: Poor Stability in Family: Good Verbal Skills: Poor Discharge Criteria Discharge Criteria: OP monitor medical prob, Improved behavior, Improved mood/thought Preliminary Discharge Plan Preliminary DC Plan: Current Living Arrange. Special Precautions Special Precautions: Agitation/Assault Fall Risk: High Initial D/C Plan Pt. will return to [facility] once stable. Identified Discharge Needs: Follow up with PCP Dr. Mcdaniels. Currently Utilized Resources Currently Utilized Resources/P: PCP Dr. Mcdaniels Identified Problems/Hx/Goals Objectives/Short-Term Goals Short Term Goals: Control abnormal behavior, Dec. Aggression, Dec. Outbursts, Medication Stabilization, Monitor Med Effects Short Term Goals in Patient's: Pt. unable to verbalize goals. 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 Education: Pt. son stated pt. did graduate from high school and took some college courses in business. Community Follow-up Follow up with PCP Dr. Mcdaniels. Community Provider/Family Inpu: Pt. son, Sedrick, would like to be contacted with an update after treatment team. Treatment Plan Explained Patient/Spike Driver had this treatment plan explained to him/her as indicated by the signature below and has been given the opportunity to ask questions and make suggestions: Date: Patient/Spike Driver Signature: Patient/Spike Driver Decline: Yes Team Members Signatures Team Members Psychiatrist Date Nursing Date CM/SW Date Activity Therapy Date Other Date Other Date FREDDY GALARZA Sep 13, 2019 15:44
[2019-09-13 16:13] VITALS: BP 135/85
[2019-09-13 18:06] LABS: THYROXINE 6.2 ug/dL (4.5-12.0)
--- NOTE | 2019-09-13 19:57 | PDOC ---
Exam Note: Guero Note: Please also refer to the separate dictated note~for this date of service dictated separately.~Patient seen individually. Discussed the patient with Nursing staff reviewed the chart.~Reviewed interim history and current functioning. Reviewed vital signs,~Labs/ Radiology~and current medications noted below. Continue current treatment with the changes noted in the dictated addendum note Assessment: Vital Signs/I&O: Vital Signs Date Time Temp Pulse Resp B/P (MAP) Pulse Ox O2 Delivery O2 Flow Rate FiO2 09/13/19 16:13 97.4 100 20 135/85 (102) 95 I & O 09/12/19 09/12/19 09/13/19 15:00 23:00 07:00 Intake Total 100 ml Balance 100 ml Labs: Laboratory Tests Test 09/13/19 06:44 White Blood Count 3.8 x10^3/uL (4.0-11.0) L Red Blood Count 3.55 x10^6/uL (3.50-5.40) Hemoglobin 11.0 g/dL (12.0-15.5) L Hematocrit 33.3 % (36.0-47.0) L Mean Corpuscular Volume 94 fL (79-100) Mean Corpuscular Hemoglobin 31 pg (25-35) Mean Corpuscular Hemoglobin Concent 33 g/dL (31-37) Red Cell Distribution Width 14.0 % (11.5-14.5) Platelet Count 200 x10^3/uL (140-400) Neutrophils (%) (Auto) 55 % (31-73) Lymphocytes (%) (Auto) 28 % (24-48) Monocytes (%) (Auto) 13 % (0-9) H Eosinophils (%) (Auto) 3 % (0-3) Basophils (%) (Auto) 1 % (0-3) Neutrophils # (Auto) 2.1 x10^3uL (1.8-7.7) Lymphocytes # (Auto) 1.1 x10^3/uL (1.0-4.8) Monocytes # (Auto) 0.5 x10^3/uL (0.0-1.1) Eosinophils # (Auto) 0.1 x10^3/uL (0.0-0.7) Basophils # (Auto) 0.0 x10^3/uL (0.0-0.2) Sodium Level 143 mmol/L (136-145) Potassium Level 4.2 mmol/L (3.5-5.1) Chloride Level 105 mmol/L (98-107) Carbon Dioxide Level 25 mmol/L (21-32) Anion Gap 13 (6-14) Blood Urea Nitrogen 10 mg/dL (7-20) Creatinine 0.9 mg/dL (0.6-1.0) Estimated GFR (Cockcroft-Gault) 60.9 BUN/Creatinine Ratio 11 (6-20) Glucose Level 93 mg/dL (70-99) Calcium Level 9.8 mg/dL (8.5-10.1) Magnesium Level 2.0 mg/dL (1.8-2.4) Iron Level 33 ug/dL (50-170) L Total Iron Binding Capacity 198 ug/dL (250-450) L Iron Saturation 17 % (15-34) Total Bilirubin 0.6 mg/dL (0.2-1.0) Aspartate Amino Transferase (AST) 25 U/L (15-37) Alanine Aminotransferase (ALT) 16 U/L (14-59) Alkaline Phosphatase 122 U/L (46-116) H Total Protein 7.6 g/dL (6.4-8.2) Albumin 3.3 g/dL (3.4-5.0) L Albumin/Globulin Ratio 0.8 (1.0-1.7) L Vitamin B12 Level 467 pg/mL (247-911) 25-Hydroxy Vitamin D Total 23.2 ng/mL (30-100) L Thyroxine (T4) 6.2 ug/dL (4.5-12.0) Total Triiodothyronine (TT3) 77 ng/dL (71-180) Treponema pallidum Antibody Nonreactive (Nonreactive) Current Medications: Meds: Current Medications Medications (Trade) Dose Ordered Sig/Saeed Route PRN Reason Start Time Stop Time Status Last Admin Dose Admin Lorazepam (Ativan) 0.25 mg BID92 PO 09/13/19 09:00 09/13/19 13:46 Lorazepam (Ativan) 0.5 mg HS PO 09/12/19 22:30 09/12/19 22:39 Mirtazapine (Remeron) 7.5 mg QHS PO 09/12/19 22:30 09/13/19 17:46 DC 09/12/19 22:40 Trazodone HCl (Desyrel) 25 mg TID@0900,1300,1700 PO 09/13/19 09:00 09/13/19 17:15 Trazodone HCl (Desyrel) 50 mg QHS PO 09/12/19 22:30 09/12/19 22:39 Aspirin (Children'S Aspirin) 81 mg DAILY PO 09/13/19 09:00 09/13/19 08:40 Citalopram Hydrobromide (CeleXA) 10 mg DAILY PO 09/13/19 09:00 09/13/19 08:40 Trimethoprim/ Sulfamethoxazole (Bactrim Ds) 1 tab BID PO 09/12/19 23:00 09/13/19 08:39 Lactobacillus Rhamnosus (Culturelle) 1 cap BID PO 09/13/19 09:00 09/13/19 08:40 Pantoprazole Sodium (Protonix) 40 mg DAILY PO 09/13/19 09:00 09/13/19 08:40 I have reviewed the current psychotropics carefully including drug interactions. Risk benefit ratio favors no change other than as noted in my dictated progress note. Diagnosis: Problems: (1) Gastroesophageal reflux disease (2) Mood disorder (3) Impulse control disorder, unspecified (4) Impaired gait (5) Dementia in Alzheimer's disease with depression (6) Dementia in Alzheimer's disease with delusions KASSIDY POP MD Sep 13, 2019 19:57
[2019-09-13] MEDS: MIRTAZAPINE 15 MG TABLET PO SCH (20:34)
[2019-09-13] MEDS: SENNOSIDES 8.6 MG TABLET PO SCH (20:34)
--- NOTE | 2019-09-13 20:55 | CONS ---
DATE OF CONSULTATION: 09/13/2019 REASON FOR CONSULTATION: Medical management. HISTORY OF PRESENT ILLNESS: The patient is a 74-year-old female patient, a resident was referred from [facility] Emergency Room. She is residing at [facility] and she was [facility] on account of being combative in the Emergency Room, biting staff, hollering out, spitting, increased agitation, threatening to hit staff, hostile, paranoid with flight of ideas, all this in a background of major neurocognitive disorder. PAST MEDICAL HISTORY: Significant for gastroesophageal reflux disease, chronic constipation, osteoarthritis, pulmonary embolism, recurrent falls, anemia, and urinary tract infection. PAST PSYCHIATRIC HISTORY: Significant for dementia, and major depressive disorder. PAST SURGICAL HISTORY: Unremarkable. ALLERGIES: She has no known drug allergies. FAMILY HISTORY: Noncontributory. SOCIAL HISTORY: She is a resident at [facility]. She does not smoke, drink alcohol or use any recreational drugs. MEDICATIONS: She is currently on following medications: She is currently on sulfamethoxazole/trimethoprim 1 tablet twice a day with a stop date on 09/18/2019 for UTI which apparently was diagnosed at [facility], she is on aspirin 81 mg once a day, ibuprofen 600 mg every 4 hours as needed, analgesic balm 4 times a day, hydrocodone/APAP 5/325 one tablet every 6 hours, Tylenol 325 mg every 8 hours, citalopram hydrobromide 10 mg once a day, mirtazapine 7.5 mg at bedtime, trazodone 50 mg at bedtime, trazodone 25 mg 3 times a day, lorazepam she takes half a tablet 0.5 mg at bedtime and Ativan 0.25 mg twice a day. She is on artificial tear drops 1 drop to both eyes every 12 hours, calcium carbonate for Tums 500 mg twice a day, Maalox 30 mL every 4 hours, bisacodyl 10 mg suppository rectally daily p.r.n. for constipation, milk of magnesia 30 mL p.o. daily p.r.n. for constipation, Senna 1 tablet at bedtime, lansoprazole for Prevacid 15 mg daily, lactobacillus rhamnosus 1 capsule twice a day and vitamin D 50,000 units p.o. every Thursday. REVIEW OF SYSTEMS: As per history of present illness. PHYSICAL EXAMINATION: GENERAL: When I examined her, the patient was sitting in her recliner, in no apparent distress. She was pale, not jaundiced, cyanosis or thyromegaly. No jugular venous distention. No limb edema. VITAL SIGNS: Her heart rate was 100, blood pressure was 135/85, temperature was 97.4, respiratory rate was 20, and oxygen saturation was 95%. HEAD, EYES, EARS, NOSE AND THROAT: Showed normocephalic, atraumatic. NECK: Supple. HEART: Showed normal first and second heart sounds. No gallop or murmur. CHEST: Clear to auscultation. No crepitation or rhonchi. ABDOMEN: Distended, soft, nontender. NEUROLOGIC: The patient was noted to be grossly intact. All her cranial nerves intact. She moves extremities without difficulty, although she is mostly chair bound. LABORATORY DATA: This morning showed a white cell count 3800, hemoglobin 11, hematocrit 33, MCV 94 and platelet count 200,000 with normal manual differential. Her chemistry showed a serum sodium 143, potassium 4.2, chloride 105, bicarbonate 25, anion gap of 13, BUN 10, creatinine 0.9, estimated GFR was 60 mL per minute. Her glucose was 93, calcium was 9.8, magnesium 2. Serum iron was 33, TIBC was 198 and iron saturation was 17. Her total bilirubin, AST, ALT were normal. Alkaline phosphatase slightly elevated at 122. Total protein was 7.6, albumin 3.3. Vitamin B12 was normal at 467 picograms and 25-hydroxy vitamin D is clearly low at 23. Her treponema pallidum antibodies were nonreactive. She did have a chest x-ray, which showed that the heart is at the upper limit of normal in size. There is mild tortuosity of the thoracic aorta. The pulmonary vascularity is normal. There is minimal linear atelectasis or scarring in the left base. The lungs are otherwise clear. There is no evidence of pleural fluid. IMPRESSION: In summary, this is a 74-year-old female patient, a resident at [facility]. She was admitted on account of being combative, biting staff, hollering out, spitting, agitated and threatening to hit staff, hostile, paranoid with flight of ideas, all this in a background of major neurocognitive disorder. She was admitted for inpatient psychiatric stabilization. Medically, she seemed to be all in all stable. I will follow her lab works that are still pending at the time of this dictation and make any necessary recommendation. Thank you, Dr. Lockwood for allowing me to participate in the care of this patient. SHANTE BARRIENTOS MD DR: LYDIA/omer JOB#: [id number] / [id number]
[2019-09-13] MEDS ORDERED: traZODone 50 MG TABLET. PO PRN (21:00)
[2019-09-14 00:07] LABS: HEMOGLOBIN A1C 5.4 % (4.8-5.6)
[2019-09-14 06:12] VITALS: BP 106/67
[2019-09-14] MEDS: SMZ/TMP 800/160MG TABLET. PO SCH ×2 (07:48→20:15)
[2019-09-14] MEDS: LORazepam 1 MG TABLET PO SCH ×3 (07:48→20:15)
[2019-09-14] MEDS: CITALOPRAM 10 MG TABLET. PO SCH (07:48)
[2019-09-14] MEDS: ASPIRIN 81 MG TAB.CHEW PO SCH (07:48)
[2019-09-14] MEDS: PANTOPRAZOLE 40 MG TABLET. PO SCH (07:49)
[2019-09-14] MEDS: traZODone 50 MG TABLET. PO SCH ×4 (07:49→20:15)
[2019-09-14] MEDS: LACTOBACILLUS RHAMNOSUS GG 1 CAPSULE. PO SCH ×2 (07:49→20:15)
[2019-09-14 16:32] VITALS: BP 144/78
--- NOTE | 2019-09-14 19:57 | PDOC ---
Exam Note: Guero Note: Please also refer to the separate dictated note~for this date of service dictated separately.~Patient seen individually. Discussed the patient with Nursing staff reviewed the chart.~Reviewed interim history and current functioning. Reviewed vital signs,~Labs/ Radiology~and current medications noted below. Continue current treatment with the changes noted in the dictated addendum note Assessment: Vital Signs/I&O: Vital Signs Date Time Temp Pulse Resp B/P (MAP) Pulse Ox O2 Delivery O2 Flow Rate FiO2 09/14/19 16:32 98.0 63 20 144/78 (100) 96 I & O 09/13/19 09/13/19 09/14/19 15:00 23:00 07:00 Intake Total 700 ml 300 ml Balance 700 ml 300 ml Current Medications: Meds: Current Medications Medications (Trade) Dose Ordered Sig/Saeed Route PRN Reason Start Time Stop Time Status Last Admin Dose Admin Mirtazapine (Remeron) 15 mg QHS PO 09/13/19 21:00 09/13/19 20:34 I have reviewed the current psychotropics carefully including drug interactions. Risk benefit ratio favors no change other than as noted in my dictated progress note. Diagnosis: Problems: (1) Gastroesophageal reflux disease (2) Impulse control disorder, unspecified (3) Impaired gait (4) Dementia in Alzheimer's disease with depression (5) Dementia in Alzheimer's disease with delusions KASSIDY POP MD Sep 14, 2019 19:57
[2019-09-14] MEDS: MIRTAZAPINE 15 MG TABLET PO SCH (20:15)
[2019-09-14] MEDS: SENNOSIDES 8.6 MG TABLET PO SCH (20:15)
--- NOTE | 2019-09-15 01:51 | PN ---
DATE: 09/13/2019 This late entry 09/13/2019 covers the elements not covered in my initial note. SUBJECTIVE: I met with the patient in the evening. Per MADY Yee, the patient slept 3-3/4 hours previous night, has been irritable, anxious, restless, with marked mood lability, takes her meds crushed in pudding, was combative, scratching staff, yelling, hallucinating, extremely confused, restless. REVIEW OF SYSTEMS: Ambulation impaired, in wheelchair. No CV, , pulmonary, eye, ENT system symptoms on review. Reliability poor. MENTAL STATUS EXAM: Oriented to herself. Insight, judgment, recent and remote memory, attention, concentration, fund of knowledge poor, consistent with her diagnosis mentioned in my initial note. IMPRESSION: Major neurocognitive disorder, Alzheimer, vascular with delusion, depression, behavioral disturbance; anxiety disorder, unspecified; impulse control disorder, unspecified; urinary tract infection. PLAN: Continue to treat the UTI on Bactrim, increase Remeron from 7.5 at bedtime to 15 mg at bedtime, trazodone 50 mg at bedtime, we will continue and may repeat x 1. Continue Celexa along with Ativan at current dosage. KASSIDY POP MD DR: SCOTT/omer JOB#: [id number] / [id number]
[2019-09-15 06:05] VITALS: BP 125/76
[2019-09-15 08:15] LABS: THYROID STIM HORMONE (TSH) 4.794 uIU/mL (0.358-3.740)
[2019-09-15] MEDS: QUEtiapine 25 MG TABLET. PO SCH ×2 (08:46→13:27)
[2019-09-15] MEDS: LACTOBACILLUS RHAMNOSUS GG 1 CAPSULE. PO SCH ×2 (08:47→20:18)
[2019-09-15] MEDS: traZODone 50 MG TABLET. PO SCH ×4 (08:47→20:18)
[2019-09-15] MEDS: SMZ/TMP 800/160MG TABLET. PO SCH ×2 (08:47→20:18)
[2019-09-15] MEDS: ASPIRIN 81 MG TAB.CHEW PO SCH (08:48)
[2019-09-15] MEDS: PANTOPRAZOLE 40 MG TABLET. PO SCH (08:48)
[2019-09-15] MEDS: CITALOPRAM 10 MG TABLET. PO SCH (08:48)
[2019-09-15] MEDS: LORazepam 1 MG TABLET PO SCH ×2 (13:26→20:18)
[2019-09-15 16:07] VITALS: BP 111/62
[2019-09-15] MEDS: SENNOSIDES 8.6 MG TABLET PO SCH (20:18)
[2019-09-15] MEDS: MIRTAZAPINE 15 MG TABLET PO SCH (20:18)
--- NOTE | 2019-09-15 20:23 | PDOC ---
Exam Note: Guero Note: Please also refer to the separate dictated note~for this date of service dictated separately.~Patient seen individually. Discussed the patient with Nursing staff reviewed the chart.~Reviewed interim history and current functioning. Reviewed vital signs,~Labs/ Radiology~and current medications noted below. Continue current treatment with the changes noted in the dictated addendum note Assessment: Vital Signs/I&O: Vital Signs Date Time Temp Pulse Resp B/P (MAP) Pulse Ox O2 Delivery O2 Flow Rate FiO2 09/15/19 16:07 97.6 91 18 111/62 (78) 98 I & O 09/14/19 09/14/19 09/15/19 15:00 23:00 07:00 Intake Total 480 ml 600 ml Balance 480 ml 600 ml Current Medications: Meds: Current Medications Medications (Trade) Dose Ordered Sig/Saeed Route PRN Reason Start Time Stop Time Status Last Admin Dose Admin Lorazepam (Ativan) 0.25 mg DAILY@1300 PO 09/15/19 13:00 09/15/19 13:26 Quetiapine Fumarate (SEROquel) 12.5 mg BID@0900,1300 PO 09/15/19 09:00 09/15/19 13:27 I have reviewed the current psychotropics carefully including drug interactions. Risk benefit ratio favors no change other than as noted in my dictated progress note. Diagnosis: Problems: (1) Impulse control disorder, unspecified (2) Impaired gait (3) Dementia in Alzheimer's disease with depression (4) Dementia in Alzheimer's disease with delusions KASSIDY POP MD Sep 15, 2019 20:23
[2019-09-16 06:13] VITALS: BP 119/78
[2019-09-16] MEDS: PANTOPRAZOLE 40 MG TABLET. PO SCH (08:42)
[2019-09-16] MEDS: ASPIRIN 81 MG TAB.CHEW PO SCH (08:42)
[2019-09-16] MEDS: traZODone 50 MG TABLET. PO SCH ×3 (08:42→17:00)
[2019-09-16] MEDS: SMZ/TMP 800/160MG TABLET. PO SCH (08:42)
[2019-09-16] MEDS: CITALOPRAM 10 MG TABLET. PO SCH (08:42)
[2019-09-16] MEDS: LACTOBACILLUS RHAMNOSUS GG 1 CAPSULE. PO SCH ×2 (08:42→20:42)
[2019-09-16] MEDS: QUEtiapine 25 MG TABLET. PO SCH ×2 (08:43→13:00)
[2019-09-16] MEDS: HYDROcodone/APAP 5/325MG 1 TAB TABLET PO PRN (10:01)
[2019-09-16] MEDS: LORazepam 1 MG TABLET PO SCH ×2 (13:00→20:43)
[2019-09-16] MEDS: CHOLECALCIFEROL (VITAMIN D3) 50,000 UNIT CAPSULE PO SCH (16:00)
[2019-09-16 16:25] VITALS: BP 100/72
--- NOTE | 2019-09-16 20:38 | PDOC ---
Exam Note: Guero Note: Please also refer to the separate dictated note~for this date of service dictated separately.~Patient seen individually. Discussed the patient with Nursing staff reviewed the chart.~Reviewed interim history and current functioning. Reviewed vital signs,~Labs/ Radiology~and current medications noted below. Continue current treatment with the changes noted in the dictated addendum note Assessment: Vital Signs/I&O: Vital Signs Date Time Temp Pulse Resp B/P (MAP) Pulse Ox O2 Delivery O2 Flow Rate FiO2 09/16/19 16:25 97.8 72 18 100/72 (81) 94 09/16/19 10:01 Room Air I & O 09/15/19 09/15/19 09/16/19 15:00 23:00 07:00 Intake Total 300 ml 360 ml Balance 300 ml 360 ml Current Medications: Meds: Current Medications Medications (Trade) Dose Ordered Sig/Saeed Route PRN Reason Start Time Stop Time Status Last Admin Dose Admin Vitamin D (Vitamin D3) 50,000 unit QMONFR PO 09/16/19 16:00 09/16/19 16:00 I have reviewed the current psychotropics carefully including drug interactions. Risk benefit ratio favors no change other than as noted in my dictated progress note. Diagnosis: Problems: (1) Mood disorder (2) Impulse control disorder, unspecified (3) Impaired gait (4) Dementia in Alzheimer's disease with depression (5) Dementia in Alzheimer's disease with delusions KASSIDY POP MD Sep 16, 2019 20:38
[2019-09-16] MEDS: SENNOSIDES 8.6 MG TABLET PO SCH (20:42)
[2019-09-16] MEDS: MIRTAZAPINE 15 MG TABLET PO SCH (20:43)
[2019-09-16] MEDS: traZODone 100 MG TABLET. PO SCH (20:44)
--- NOTE | 2019-09-17 02:53 | PN ---
DATE: 09/15/2019 PSYCHIATRIC PROGRESS NOTE This late entry 09/15/2019 covers the elements not covered in my initial note. SUBJECTIVE: I met with the patient in the evening and staffed at a treatment team meeting with the entire team in the morning. The patient's appetite 100%, slept sleeping average 5-1/2 hours. She is quite confused, restless, fidgety, and combative. Urine C and S __ culture. She is on Bactrim. We will confirm sensitivity to Bactrim and at the time of this dictation, nursing staff have confirmed this. REVIEW OF SYSTEMS: Ambulation impaired. No CV, , pulmonary, eye, ENT system symptoms on review. Reliability is poor. MENTAL STATUS EXAM: Oriented to herself. Insight, judgment, recent and remote memory, attention, concentration, fund of knowledge poor, consistent with her diagnosis mentioned in my initial note. PLAN: No change from initial note. KASSIDY POP MD DR: SCOTT/omer JOB#: [id number] / [id number]
[2019-09-17 06:02] VITALS: BP 135/78
[2019-09-17] MEDS: traZODone 50 MG TABLET. PO SCH ×3 (08:29→17:00)
[2019-09-17] MEDS: LACTOBACILLUS RHAMNOSUS GG 1 CAPSULE. PO SCH ×2 (08:29→20:50)
[2019-09-17] MEDS: ASPIRIN 81 MG TAB.CHEW PO SCH (08:29)
[2019-09-17] MEDS: PANTOPRAZOLE 40 MG TABLET. PO SCH (08:30)
[2019-09-17] MEDS: CITALOPRAM 10 MG TABLET. PO SCH (08:30)
[2019-09-17] MEDS: QUEtiapine 25 MG TABLET. PO SCH ×2 (08:30→13:00)
[2019-09-17] MEDS: HYDROcodone/APAP 5/325MG 1 TAB TABLET PO PRN (09:34)
[2019-09-17] MEDS: LORazepam 1 MG TABLET PO SCH ×2 (13:00→20:52)
[2019-09-17 16:00] VITALS: BP 129/80
--- NOTE | 2019-09-17 20:41 | PDOC ---
Exam Note: Guero Note: Please also refer to the separate dictated note~for this date of service dictated separately.~Patient seen individually. Discussed the patient with Nursing staff reviewed the chart.~Reviewed interim history and current functioning. Reviewed vital signs,~Labs/ Radiology~and current medications noted below. Continue current treatment with the changes noted in the dictated addendum note Assessment: Vital Signs/I&O: Vital Signs Date Time Temp Pulse Resp B/P (MAP) Pulse Ox O2 Delivery O2 Flow Rate FiO2 09/17/19 16:00 98.3 98 18 129/80 (96) 96 09/17/19 06:02 Room Air I & O 09/16/19 09/16/19 09/17/19 14:59 22:59 06:59 Intake Total 240 ml 0 ml Balance 240 ml 0 ml Current Medications: Meds: Current Medications Medications (Trade) Dose Ordered Sig/Saeed Route PRN Reason Start Time Stop Time Status Last Admin Dose Admin Sennosides (Senna) 17.2 mg HS PO 09/16/19 21:00 09/16/19 20:42 Trazodone HCl (Desyrel) 100 mg QHS PO 09/16/19 21:00 09/16/19 20:44 I have reviewed the current psychotropics carefully including drug interactions. Risk benefit ratio favors no change other than as noted in my dictated progress note. Diagnosis: Problems: (1) Mood disorder (2) Impulse control disorder, unspecified (3) Impaired gait (4) Dementia in Alzheimer's disease with depression (5) Dementia in Alzheimer's disease with delusions (6) Gastroesophageal reflux disease KASSIDY POP MD Sep 17, 2019 20:41
[2019-09-17] MEDS: MIRTAZAPINE 15 MG TABLET PO SCH (20:49)
[2019-09-17] MEDS: SENNOSIDES 8.6 MG TABLET PO SCH (20:50)
[2019-09-17] MEDS: traZODone 100 MG TABLET. PO SCH (20:50)
[2019-09-17] MEDS: traZODone 50 MG TABLET. PO PRN (23:25)
[2019-09-18 05:50] VITALS: BP 106/66
[2019-09-18] MEDS: CITALOPRAM 10 MG TABLET. PO SCH (08:14)
[2019-09-18] MEDS: traZODone 50 MG TABLET. PO SCH ×3 (08:14→17:00)
[2019-09-18] MEDS: PANTOPRAZOLE 40 MG TABLET. PO SCH (08:14)
[2019-09-18] MEDS: LACTOBACILLUS RHAMNOSUS GG 1 CAPSULE. PO SCH ×3 (08:14→21:20)
[2019-09-18] MEDS: ASPIRIN 81 MG TAB.CHEW PO SCH (08:14)
[2019-09-18] MEDS: QUEtiapine 25 MG TABLET. PO SCH ×3 (08:15→17:00)
[2019-09-18] MEDS: LORazepam 1 MG TABLET PO SCH (12:47)
[2019-09-18 15:39] VITALS: BP 94/61
--- NOTE | 2019-09-18 19:58 | PDOC ---
Exam Note: Guero Note: Please also refer to the separate dictated note~for this date of service dictated separately.~Patient seen individually. Discussed the patient with Nursing staff reviewed the chart.~Reviewed interim history and current functioning. Reviewed vital signs,~Labs/ Radiology~and current medications noted below. Continue current treatment with the changes noted in the dictated addendum note Assessment: Vital Signs/I&O: Vital Signs Date Time Temp Pulse Resp B/P (MAP) Pulse Ox O2 Delivery O2 Flow Rate FiO2 09/18/19 15:39 97.4 87 14 94/61 (72) 98 09/17/19 06:02 Room Air I & O 09/17/19 09/17/19 09/18/19 15:00 23:00 07:00 Intake Total 1080 ml 280 ml Balance 1080 ml 280 ml Current Medications: Meds: Current Medications Medications (Trade) Dose Ordered Sig/Saeed Route PRN Reason Start Time Stop Time Status Last Admin Dose Admin Quetiapine Fumarate (SEROquel) 12.5 mg TID@0900,1300,1700 PO 09/18/19 09:00 09/18/19 12:47 I have reviewed the current psychotropics carefully including drug interactions. Risk benefit ratio favors no change other than as noted in my dictated progress note. Diagnosis: Problems: (1) Gastroesophageal reflux disease (2) Mood disorder (3) Impulse control disorder, unspecified (4) Impaired gait (5) Dementia in Alzheimer's disease with depression (6) Dementia in Alzheimer's disease with delusions KASSIDY POP MD Sep 18, 2019 19:58
[2019-09-18] MEDS: MIRTAZAPINE 15 MG TABLET PO SCH ×2 (21:00→21:20)
[2019-09-18] MEDS: SENNOSIDES 8.6 MG TABLET PO SCH ×2 (21:00→21:20)
[2019-09-18] MEDS: LORazepam 0.5 MG TABLET PO SCH ×2 (21:00→21:21)
[2019-09-18] MEDS: traZODone 100 MG TABLET. PO SCH ×2 (21:00→21:20)
--- NOTE | 2019-09-18 21:31 | PN ---
DATE: 09/16/2019 This late entry, 09/16/2019, covers the elements not covered in my initial note. SUBJECTIVE: I met with the patient evening of 09/16/2019. Per MADY Hines, the patient slept 3-1/4 hours previous night. She remains confused, restless, anxious, and paranoid and started Zyprexa 2.5 mg q. 2 hours p.r.n. psychosis and agitation, max 10 mg in 24 hours. Urine C and S is negative. She had a hard bowel movement and then was much calmer after that. REVIEW OF SYSTEMS: Ambulation impaired. No CV, , pulmonary, eye, or ENT system symptoms on review. MENTAL STATUS EXAM: Oriented to herself. Insight, judgment, recent and remote memory, attention, concentration, and fund of knowledge, poor and consistent with her diagnosis mentioned in my initial note. PLAN: No change from initial note. KASSIDY POP MD DR: SCOTT/omer JOB#: [id number] / [id number]
[2019-09-19 06:11] VITALS: BP 106/66
[2019-09-19 07:25] LABS: BASO % 1 % (0-3); EOS # 0.1 x10^3/uL (0.0-0.7); EOS % 2 % (0-3); HEMATOCRIT 32.1 % (36.0-47.0); HEMOGLOBIN 10.6 g/dL (12.0-15.5); LYMPH # 1.2 x10^3/uL (1.0-4.8); LYMPH % 24 % (24-48); MEAN CORPUSCULAR HEMOGLOBIN 31 pg (25-35); MEAN CORPUSCULAR HGB CONC 33 g/dL (31-37); MEAN CORPUSCULAR VOLUME 93 fL (79-100); MONO # 0.5 x10^3/uL (0.0-1.1); MONO % 10 % (0-9); NEUT # 3.1 x10^3uL (1.8-7.7); NEUT % 64 % (31-73); PLATELET COUNT 240 x10^3/uL (140-400); RED BLOOD COUNT 3.44 x10^6/uL (3.50-5.40); RED CELL DISTRIBUTION WIDTH 14.1 % (11.5-14.5); WHITE BLOOD COUNT 4.9 x10^3/uL (4.0-11.0)
[2019-09-19 07:39] LABS: ALBUMIN 3.1 g/dL (3.4-5.0); ALBUMIN/GLOBULIN RATIO 0.7 (1.0-1.7); CALCIUM 9.8 mg/dL (8.5-10.1); CREATININE 0.9 mg/dL (0.6-1.0); GFR 60.9; POTASSIUM 4.1 mmol/L (3.5-5.1); TOTAL BILIRUBIN 0.4 mg/dL (0.2-1.0); TOTAL PROTEIN 7.5 g/dL (6.4-8.2)
[2019-09-19] MEDS: PANTOPRAZOLE 40 MG TABLET. PO SCH (09:33)
[2019-09-19] MEDS: ASPIRIN 81 MG TAB.CHEW PO SCH (09:34)
[2019-09-19] MEDS: CITALOPRAM 10 MG TABLET. PO SCH (09:34)
[2019-09-19] MEDS: CHOLECALCIFEROL (VITAMIN D3) 50,000 UNIT CAPSULE PO SCH (09:34)
[2019-09-19] MEDS: traZODone 50 MG TABLET. PO SCH ×3 (09:34→17:15)
[2019-09-19] MEDS: QUEtiapine 25 MG TABLET. PO SCH ×3 (09:34→17:16)
[2019-09-19] MEDS: LACTOBACILLUS RHAMNOSUS GG 1 CAPSULE. PO SCH ×2 (09:35→19:59)
[2019-09-19] MEDS: LORazepam 1 MG TABLET PO SCH (13:21)
[2019-09-19 15:54] VITALS: BP 107/75
--- NOTE | 2019-09-19 18:27 | PN ---
DATE: 09/17/2019 PSYCHIATRIC PROGRESS NOTE This late entry 09/17/2019 covers the elements not covered in my initial note. SUBJECTIVE: I met with the patient in the evening. The patient slept 8 hours previous night. She remains quite confused, anxious, restless, labile in her mood. REVIEW OF SYSTEMS: Ambulation impaired, in Broda chair. No CV, , pulmonary, eye, ENT system symptoms on review. Reliability poor. MENTAL STATUS EXAM: Oriented to herself. Insight, judgment, recent and remote memory, attention, concentration, fund of knowledge poor, consistent with her diagnosis. Speech is rambling, word salad, fidgety. IMPRESSION: Major neurocognitive disorder, Alzheimer, vascular with delusion, depression, behavioral disturbance; anxiety disorder, unspecified; impulse control disorder, unspecified. Rest unchanged. PLAN: Reduce the bedtime Ativan from 0.5 mg down to 0.25 mg, increase Seroquel from 12.5 b.i.d. to 12.5 t.i.d. Rest unchanged for now. KASSIDY POP MD DR: SCOTT/omer JOB#: [id number] / [id number]
--- NOTE | 2019-09-19 18:29 | PN ---
DATE: 09/18/2019 PSYCHIATRIC PROGRESS NOTE This late entry 09/18/2019 covers the elements not covered in my initial note. SUBJECTIVE: I met with the patient in the evening. The patient slept 2 hours previous night, has been restless, confused, hallucinating, received p.r.n. and then slept a little bit better. REVIEW OF SYSTEMS: No CV, , pulmonary, eye, ENT system symptoms on review. Reliability poor. MENTAL STATUS EXAM: Oriented to herself. Insight, judgment, recent and remote memory, attention, concentration, fund of knowledge poor, consistent with her diagnosis mentioned in my initial note. PLAN: No change from initial note. We will see how she sleeps evening of 09/18/2019 and then decide what next needs to be done since she is already on Remeron and trazodone for the insomnia. MAN Jose Maria POP MD DR: SCOTT/omer JOB#: [id number] / [id number]
--- NOTE | 2019-09-19 19:52 | PDOC ---
Exam Note: Guero Note: Please also refer to the separate dictated note~for this date of service dictated separately.~Patient seen individually. Discussed the patient with Nursing staff reviewed the chart.~Reviewed interim history and current functioning. Reviewed vital signs,~Labs/ Radiology~and current medications noted below. Continue current treatment with the changes noted in the dictated addendum note Assessment: Vital Signs/I&O: Vital Signs Date Time Temp Pulse Resp B/P (MAP) Pulse Ox O2 Delivery O2 Flow Rate FiO2 09/19/19 15:54 97.5 102 18 107/75 (86) 98 09/19/19 06:11 Room Air I & O 09/18/19 09/18/19 09/19/19 14:59 22:59 06:59 Intake Total 360 ml 0 ml Balance 360 ml 0 ml Labs: Laboratory Tests Test 09/19/19 06:54 White Blood Count 4.9 x10^3/uL (4.0-11.0) Red Blood Count 3.44 x10^6/uL (3.50-5.40) L Hemoglobin 10.6 g/dL (12.0-15.5) L Hematocrit 32.1 % (36.0-47.0) L Mean Corpuscular Volume 93 fL (79-100) Mean Corpuscular Hemoglobin 31 pg (25-35) Mean Corpuscular Hemoglobin Concent 33 g/dL (31-37) Red Cell Distribution Width 14.1 % (11.5-14.5) Platelet Count 240 x10^3/uL (140-400) Neutrophils (%) (Auto) 64 % (31-73) Lymphocytes (%) (Auto) 24 % (24-48) Monocytes (%) (Auto) 10 % (0-9) H Eosinophils (%) (Auto) 2 % (0-3) Basophils (%) (Auto) 1 % (0-3) Neutrophils # (Auto) 3.1 x10^3uL (1.8-7.7) Lymphocytes # (Auto) 1.2 x10^3/uL (1.0-4.8) Monocytes # (Auto) 0.5 x10^3/uL (0.0-1.1) Eosinophils # (Auto) 0.1 x10^3/uL (0.0-0.7) Basophils # (Auto) 0.0 x10^3/uL (0.0-0.2) Sodium Level 141 mmol/L (136-145) Potassium Level 4.1 mmol/L (3.5-5.1) Chloride Level 104 mmol/L (98-107) Carbon Dioxide Level 26 mmol/L (21-32) Anion Gap 11 (6-14) Blood Urea Nitrogen 27 mg/dL (7-20) H Creatinine 0.9 mg/dL (0.6-1.0) Estimated GFR (Cockcroft-Gault) 60.9 BUN/Creatinine Ratio 30 (6-20) H Glucose Level 96 mg/dL (70-99) Calcium Level 9.8 mg/dL (8.5-10.1) Total Bilirubin 0.4 mg/dL (0.2-1.0) Aspartate Amino Transferase (AST) 17 U/L (15-37) Alanine Aminotransferase (ALT) 17 U/L (14-59) Alkaline Phosphatase 125 U/L (46-116) H Total Protein 7.5 g/dL (6.4-8.2) Albumin 3.1 g/dL (3.4-5.0) L Albumin/Globulin Ratio 0.7 (1.0-1.7) L Current Medications: I have reviewed the current psychotropics carefully including drug interactions. Risk benefit ratio favors no change other than as noted in my dictated progress note. Diagnosis: Problems: (1) Mood disorder (2) Impulse control disorder, unspecified (3) Impaired gait (4) Dementia in Alzheimer's disease with depression (5) Dementia in Alzheimer's disease with delusions KASSIDY POP MD Sep 19, 2019 19:52
[2019-09-19] MEDS: SENNOSIDES 8.6 MG TABLET PO SCH (19:59)
[2019-09-19] MEDS: traZODone 100 MG TABLET. PO SCH (19:59)
[2019-09-19] MEDS: MIRTAZAPINE 15 MG TABLET PO SCH (20:00)
[2019-09-20 06:23] VITALS: BP 133/82
[2019-09-20] MEDS: CITALOPRAM 10 MG TABLET. PO SCH (07:57)
[2019-09-20] MEDS: QUEtiapine 25 MG TABLET. PO SCH ×3 (07:57→16:34)
[2019-09-20] MEDS: LACTOBACILLUS RHAMNOSUS GG 1 CAPSULE. PO SCH ×2 (07:57→20:44)
[2019-09-20] MEDS: PANTOPRAZOLE 40 MG TABLET. PO SCH (07:58)
[2019-09-20] MEDS: traZODone 50 MG TABLET. PO SCH ×3 (07:58→16:34)
[2019-09-20] MEDS: ASPIRIN 81 MG TAB.CHEW PO SCH (07:59)
[2019-09-20] MEDS: LORazepam 1 MG TABLET PO SCH (13:16)
[2019-09-20 16:09] VITALS: BP 124/77
[2019-09-20 18:47] LABS: BACTERIA,URINE FEW /HPF (0-FEW); BILIRUBIN,URINE NEG (NEG); CLARITY,URINE CLEAR; COLOR,URINE YELLOW; GLUCOSE,URINE NEG (NEG); NITRITE,URINE NEG (NEG); RBC,URINE 0 /HPF (0-2); UROBILINOGEN,URINE 1 mg/dL (0.2 mg/dL)
--- NOTE | 2019-09-20 19:55 | PDOC ---
Exam Note: Guero Note: Please also refer to the separate dictated note~for this date of service dictated separately.~Patient seen individually. Discussed the patient with Nursing staff reviewed the chart.~Reviewed interim history and current functioning. Reviewed vital signs,~Labs/ Radiology~and current medications noted below. Continue current treatment with the changes noted in the dictated addendum note Assessment: Vital Signs/I&O: Vital Signs Date Time Temp Pulse Resp B/P (MAP) Pulse Ox O2 Delivery O2 Flow Rate FiO2 09/20/19 16:09 98.5 94 19 124/77 (93) 97 Room Air I & O 09/19/19 09/19/19 09/20/19 15:00 23:00 07:00 Intake Total 480 ml 240 ml 0 ml Balance 480 ml 240 ml 0 ml Labs: Laboratory Tests Test 09/20/19 18:15 Urine Collection Type U cath Urine Color Yellow Urine Clarity Clear Urine pH 6.5 Urine Specific [place] 1.015 Urine Protein Neg (NEG-TRACE) Urine Glucose (UA) Neg mg/dL (NEG) Urine Ketones (Stick) Neg mg/dL (NEG) Urine Blood Neg (NEG) Urine Nitrite Neg (NEG) Urine Bilirubin Neg (NEG) Urine Urobilinogen Dipstick 1 mg/dL (0.2 mg/dL) Urine Leukocyte Esterase Neg (NEG) Urine RBC 0 /HPF (0-2) Urine WBC 1-4 /HPF (0-4) Urine Squamous Epithelial Cells None /LPF Urine Bacteria Few /HPF (0-FEW) Urine Mucus Mod /LPF Current Medications: I have reviewed the current psychotropics carefully including drug interactions. Risk benefit ratio favors no change other than as noted in my dictated progress note. Diagnosis: Problems: (1) Mood disorder (2) Impulse control disorder, unspecified (3) Impaired gait (4) Dementia in Alzheimer's disease with depression (5) Dementia in Alzheimer's disease with delusions KASSIDY POP MD Sep 20, 2019 19:55
[2019-09-20] MEDS: MIRTAZAPINE 15 MG TABLET PO SCH (20:43)
[2019-09-20] MEDS: DIVALPROEX 125 MG CAP.SPRINK PO SCH (20:43)
[2019-09-20] MEDS: SENNOSIDES 8.6 MG TABLET PO SCH (20:43)
[2019-09-20] MEDS: traZODone 100 MG TABLET. PO SCH (20:43)
--- NOTE | 2019-09-20 23:45 | PN ---
DATE: 09/19/2019 PSYCHIATRIC PROGRESS NOTE This late entry 09/19/2019 covers the elements not covered in my initial note. SUBJECTIVE: I met with the patient in the evening. Per MADY Posey, the patient slept 10 hours previous night. She has had poor oral intake, somewhat restless, but less sedated during the day on 09/19/2019. Speech is still rambling refused her medication. Received Zyprexa 10:00 a.m., then did better. REVIEW OF SYSTEMS: Ambulation impaired. No CV, , pulmonary, eye, ENT system symptoms on review. Reliability poor. MENTAL STATUS EXAM: Oriented to herself. Insight, judgment, recent and remote memory, attention, concentration, fund of knowledge poor, consistent with her diagnoses. IMPRESSION: Unchanged from initial note. PLAN: No change from initial note. MAN Jose Maria POP MD DR: SCOTT/omer JOB#: [id number] / [id number]
[2019-09-21 06:34] VITALS: BP 128/68
[2019-09-21] MEDS ORDERED: DIVALPROEX 125 MG CAP.SPRINK PO SCH (08:00)
[2019-09-21] MEDS: QUEtiapine 25 MG TABLET. PO SCH ×3 (08:17→17:17)
[2019-09-21] MEDS: ASPIRIN 81 MG TAB.CHEW PO SCH (08:17)
[2019-09-21] MEDS: LACTOBACILLUS RHAMNOSUS GG 1 CAPSULE. PO SCH ×2 (08:17→19:54)
[2019-09-21] MEDS: traZODone 50 MG TABLET. PO SCH ×3 (08:17→17:17)
[2019-09-21] MEDS: CITALOPRAM 10 MG TABLET. PO SCH (08:17)
[2019-09-21] MEDS: PANTOPRAZOLE 40 MG TABLET. PO SCH (08:18)
[2019-09-21] MEDS: DIVALPROEX 125 MG CAP.SPRINK PO SCH ×2 (08:18→17:17)
[2019-09-21] MEDS: HYDROcodone/APAP 5/325MG 1 TAB TABLET PO PRN (09:40)
[2019-09-21] MEDS: LORazepam 1 MG TABLET PO SCH (12:32)
[2019-09-21 15:44] VITALS: BP 107/68
--- NOTE | 2019-09-21 19:53 | PDOC ---
Exam Note: Guero Note: Please also refer to the separate dictated note~for this date of service dictated separately.~Patient seen individually. Discussed the patient with Nursing staff reviewed the chart.~Reviewed interim history and current functioning. Reviewed vital signs,~Labs/ Radiology~and current medications noted below. Continue current treatment with the changes noted in the dictated addendum note Assessment: Vital Signs/I&O: Vital Signs Date Time Temp Pulse Resp B/P (MAP) Pulse Ox O2 Delivery O2 Flow Rate FiO2 09/21/19 15:44 97.2 83 18 107/68 (81) 97 09/20/19 16:09 Room Air I & O 09/20/19 09/20/19 09/21/19 15:00 23:00 07:00 Intake Total 720 ml 480 ml Balance 720 ml 480 ml Current Medications: Meds: Current Medications Medications (Trade) Dose Ordered Sig/Saeed Route PRN Reason Start Time Stop Time Status Last Admin Dose Admin Divalproex Sodium (Depakote Sprinkles) 125 mg BIDWMEALS PO 09/20/19 20:30 09/21/19 17:17 I have reviewed the current psychotropics carefully including drug interactions. Risk benefit ratio favors no change other than as noted in my dictated progress note. Diagnosis: Problems: (1) Mood disorder (2) Impulse control disorder, unspecified (3) Impaired gait (4) Dementia in Alzheimer's disease with depression (5) Dementia in Alzheimer's disease with delusions KASSIDY POP MD Sep 21, 2019 19:53
[2019-09-21] MEDS: SENNOSIDES 8.6 MG TABLET PO SCH (19:54)
[2019-09-21] MEDS: MIRTAZAPINE 15 MG TABLET PO SCH (19:55)
[2019-09-21] MEDS: traZODone 100 MG TABLET. PO SCH (19:55)
--- NOTE | 2019-09-21 21:20 | PN ---
DATE: 09/20/2019 PSYCHIATRIC PROGRESS NOTE This late entry 09/20/2019 covers elements not covered in my initial note. SUBJECTIVE: I met with the patient in the evening. The patient was also staffed at a treatment team meeting with the entire team in the morning. The patient is sleeping average 7 hours. Appetite is better. She remains confused speech is word salad. We will repeat a UA, rule out UTI. REVIEW OF SYSTEMS: Ambulation impaired, in Broda chair. No CV, , pulmonary, eye, ENT system symptoms on review. Reliability poor. MENTAL STATUS EXAM: Oriented to herself. Insight, judgment, recent and remote memory, attention, concentration, fund of knowledge poor, consistent with her diagnosis mentioned in my initial note. PLAN: No change from initial note. MAN Jose Maria POP MD DR: SCOTT/omer JOB#: [id number] / [id number]
[2019-09-22 05:49] VITALS: BP 116/74
[2019-09-22] MEDS: CITALOPRAM 10 MG TABLET. PO SCH (09:05)
[2019-09-22] MEDS: ASPIRIN 81 MG TAB.CHEW PO SCH (09:05)
[2019-09-22] MEDS: LACTOBACILLUS RHAMNOSUS GG 1 CAPSULE. PO SCH (09:05)
[2019-09-22] MEDS: traZODone 50 MG TABLET. PO SCH ×3 (09:05→17:00)
[2019-09-22] MEDS: PANTOPRAZOLE 40 MG TABLET. PO SCH (09:05)
[2019-09-22] MEDS: QUEtiapine 25 MG TABLET. PO SCH ×3 (09:05→17:00)
[2019-09-22] MEDS: DIVALPROEX 125 MG CAP.SPRINK PO SCH ×2 (09:05→17:00)
--- NOTE | 2019-09-22 11:03 | PN ---
DATE: 09/21/2019 PSYCHIATRIC PROGRESS NOTE This late entry 09/21/2019 covers elements not covered in my initial note. SUBJECTIVE: I met with the patient in the evening. Per MADY Bojorquez, the patient slept 5-3/4 hours previous night. She remains confused, rambling speech, combative in the morning, refusing medications. Complains of pain, received Lortab. Her son/grandson Bhavesh wondered whether she might have Lewy Body dementia per nursing report. It is unclear, but she does not have the marked changes in cognitive abilities within a short period of time and other hallmark suggestive of Lewy body dementia, but we will keep an open mind. For now, it does appear more likely part of her Alzheimer, vascular. REVIEW OF SYSTEMS: She is in a Broda chair. No CV, , pulmonary, eye, ENT system symptoms on review. Reliability poor. MENTAL STATUS EXAM: Oriented to herself. Insight, judgment, recent and remote memory, attention, concentration, fund of knowledge poor, consistent with her diagnosis mentioned in my initial note. PLAN: No change from initial note. MAN Jose Maria POP MD DR: SCOTT/omer JOB#: [id number] / [id number]
--- NOTE | 2019-09-22 11:04 | PN ---
DATE: 09/22/2019 PSYCHIATRIC PROGRESS NOTE This note covers elements not covered in my initial note of 09/22/2019. SUBJECTIVE: I met with the patient in the morning. The patient slept 7-1/2 hours previous night. Speech is word salad. She was quite agitated, rambling in the morning, but calmer when music is played close to her ear. She takes her meds crushed in ice cream, cooperative, watching [employer] movie. REVIEW OF SYSTEMS: Ambulation impaired, in Broda chair. No CV, , pulmonary, eye, ENT system symptoms on review. Reliability poor. MENTAL STATUS EXAM: Oriented to herself. Insight, judgment, recent and remote memory, attention, concentration, fund of knowledge poor, consistent with her diagnosis mentioned in my initial note. PLAN: No change from initial note. Valproic acid level is to be checked on 09/23/2019. We will adjust Depakote thereafter. Maintain Ativan, Seroquel, trazodone, Zyprexa p.r.n., Remeron for now. KASSIDY POP MD DR: SCOTT/omer JOB#: [id number] / [id number]
[2019-09-22] MEDS: LORazepam 1 MG TABLET PO SCH (13:00)
[2019-09-22 16:15] VITALS: BP 108/63
[2019-09-22] MEDS: MIRTAZAPINE 15 MG TABLET PO SCH (20:15)
[2019-09-22] MEDS: traZODone 100 MG TABLET. PO SCH (20:15)
[2019-09-22] MEDS: SENNOSIDES 8.6 MG TABLET PO SCH (20:16)
--- NOTE | 2019-09-22 20:39 | PDOC ---
Exam Note: Guero Note: Please also refer to the separate dictated note~for this date of service dictated separately.~Patient seen individually. Discussed the patient with Nursing staff reviewed the chart.~Reviewed interim history and current functioning. Reviewed vital signs,~Labs/ Radiology~and current medications noted below. Continue current treatment with the changes noted in the dictated addendum note Assessment: Vital Signs/I&O: Vital Signs Date Time Temp Pulse Resp B/P (MAP) Pulse Ox O2 Delivery O2 Flow Rate FiO2 09/22/19 16:15 98.8 64 20 108/63 (78) 96 09/20/19 16:09 Room Air I & O 09/21/19 09/21/19 09/22/19 15:00 23:00 07:00 Intake Total 240 ml 360 ml Balance 240 ml 360 ml Current Medications: I have reviewed the current psychotropics carefully including drug interactions. Risk benefit ratio favors no change other than as noted in my dictated progress note. Diagnosis: Problems: (1) Mood disorder (2) Impulse control disorder, unspecified (3) Impaired gait (4) Dementia in Alzheimer's disease with depression (5) Dementia in Alzheimer's disease with delusions KASSIDY POP MD Sep 22, 2019 20:39
[2019-09-23 06:29] VITALS: BP 127/84
[2019-09-23 07:09] LABS: BASO % 1 % (0-3); EOS # 0.1 x10^3/uL (0.0-0.7); EOS % 2 % (0-3); HEMATOCRIT 34.5 % (36.0-47.0); HEMOGLOBIN 11.3 g/dL (12.0-15.5); LYMPH # 1.2 x10^3/uL (1.0-4.8); LYMPH % 26 % (24-48); MEAN CORPUSCULAR HEMOGLOBIN 31 pg (25-35); MEAN CORPUSCULAR HGB CONC 33 g/dL (31-37); MEAN CORPUSCULAR VOLUME 94 fL (79-100); MONO # 0.5 x10^3/uL (0.0-1.1); MONO % 10 % (0-9); NEUT # 2.7 x10^3uL (1.8-7.7); NEUT % 60 % (31-73); PLATELET COUNT 280 x10^3/uL (140-400); RED BLOOD COUNT 3.67 x10^6/uL (3.50-5.40); RED CELL DISTRIBUTION WIDTH 14.1 % (11.5-14.5); WHITE BLOOD COUNT 4.6 x10^3/uL (4.0-11.0)
[2019-09-23 07:16] LABS: ALBUMIN 3.3 g/dL (3.4-5.0); ALBUMIN/GLOBULIN RATIO 0.7 (1.0-1.7); ALK PHOS 163 U/L (46-116); ALT (SGPT) 20 U/L (14-59); ANION GAP 7 (6-14); AST (SGOT) 22 U/L (15-37); BLOOD UREA NITROGEN 39 mg/dL (7-20); BUN/CREATININE RATIO 49 (6-20); CALCIUM 10.7 mg/dL (8.5-10.1); CARBON DIOXIDE 29 mmol/L (21-32); CHLORIDE 111 mmol/L (98-107); CREATININE 0.8 mg/dL (0.6-1.0); GFR 69.7; GLUCOSE 117 mg/dL (70-99); POTASSIUM 4.4 mmol/L (3.5-5.1); SODIUM 147 mmol/L (136-145); TOTAL BILIRUBIN 0.4 mg/dL (0.2-1.0); TOTAL PROTEIN 8.2 g/dL (6.4-8.2)
[2019-09-23 07:20] LABS: VAL ACID 15 mcg/mL (50-100)
[2019-09-23] MEDS: CITALOPRAM 10 MG TABLET. PO SCH (08:10)
[2019-09-23] MEDS: DIVALPROEX 125 MG CAP.SPRINK PO SCH ×3 (08:10→19:51)
[2019-09-23] MEDS: ASPIRIN 81 MG TAB.CHEW PO SCH (08:10)
[2019-09-23] MEDS: QUEtiapine 25 MG TABLET. PO SCH ×3 (08:11→17:08)
[2019-09-23] MEDS: traZODone 50 MG TABLET. PO SCH ×3 (08:11→17:07)
[2019-09-23] MEDS: PANTOPRAZOLE 40 MG TABLET. PO SCH (08:12)
[2019-09-23] MEDS: LORazepam 1 MG TABLET PO SCH (12:11)
[2019-09-23 15:35] VITALS: BP 150/74
[2019-09-23] MEDS: CHOLECALCIFEROL (VITAMIN D3) 50,000 UNIT CAPSULE PO SCH (17:07)
[2019-09-23] MEDS: MIRTAZAPINE 15 MG TABLET PO SCH (19:51)
[2019-09-23] MEDS: traZODone 100 MG TABLET. PO SCH (19:51)
[2019-09-23] MEDS: SENNOSIDES 8.6 MG TABLET PO SCH (19:51)
--- NOTE | 2019-09-23 20:06 | PDOC ---
Exam Note: Guero Note: Please also refer to the separate dictated note~for this date of service dictated separately.~Patient seen individually. Discussed the patient with Nursing staff reviewed the chart.~Reviewed interim history and current functioning. Reviewed vital signs,~Labs/ Radiology~and current medications noted below. Continue current treatment with the changes noted in the dictated addendum note Assessment: Vital Signs/I&O: Vital Signs Date Time Temp Pulse Resp B/P (MAP) Pulse Ox O2 Delivery O2 Flow Rate FiO2 09/23/19 15:35 98.2 82 18 150/74 (99) 96 09/20/19 16:09 Room Air I & O 09/22/19 09/22/19 09/23/19 15:00 23:00 07:00 Intake Total 840 ml 120 ml Balance 840 ml 120 ml Labs: Laboratory Tests Test 09/23/19 06:35 White Blood Count 4.6 x10^3/uL (4.0-11.0) Red Blood Count 3.67 x10^6/uL (3.50-5.40) Hemoglobin 11.3 g/dL (12.0-15.5) L Hematocrit 34.5 % (36.0-47.0) L Mean Corpuscular Volume 94 fL (79-100) Mean Corpuscular Hemoglobin 31 pg (25-35) Mean Corpuscular Hemoglobin Concent 33 g/dL (31-37) Red Cell Distribution Width 14.1 % (11.5-14.5) Platelet Count 280 x10^3/uL (140-400) Neutrophils (%) (Auto) 60 % (31-73) Lymphocytes (%) (Auto) 26 % (24-48) Monocytes (%) (Auto) 10 % (0-9) H Eosinophils (%) (Auto) 2 % (0-3) Basophils (%) (Auto) 1 % (0-3) Neutrophils # (Auto) 2.7 x10^3uL (1.8-7.7) Lymphocytes # (Auto) 1.2 x10^3/uL (1.0-4.8) Monocytes # (Auto) 0.5 x10^3/uL (0.0-1.1) Eosinophils # (Auto) 0.1 x10^3/uL (0.0-0.7) Basophils # (Auto) 0.0 x10^3/uL (0.0-0.2) Sodium Level 147 mmol/L (136-145) H Potassium Level 4.4 mmol/L (3.5-5.1) Chloride Level 111 mmol/L (98-107) H Carbon Dioxide Level 29 mmol/L (21-32) Anion Gap 7 (6-14) Blood Urea Nitrogen 39 mg/dL (7-20) H Creatinine 0.8 mg/dL (0.6-1.0) Estimated GFR (Cockcroft-Gault) 69.7 BUN/Creatinine Ratio 49 (6-20) H Glucose Level 117 mg/dL (70-99) H Calcium Level 10.7 mg/dL (8.5-10.1) H Total Bilirubin 0.4 mg/dL (0.2-1.0) Aspartate Amino Transferase (AST) 22 U/L (15-37) Alanine Aminotransferase (ALT) 20 U/L (14-59) Alkaline Phosphatase 163 U/L (46-116) H Ammonia < 10 mcmol/L (11-34) L Total Protein 8.2 g/dL (6.4-8.2) Albumin 3.3 g/dL (3.4-5.0) L Albumin/Globulin Ratio 0.7 (1.0-1.7) L Valproic Acid Level 15 mcg/mL (50-100) L Valproic Acid Last Dose Date 09/22/19 Valproic Acid Last Dose Time 2100 Current Medications: Meds: Current Medications Medications (Trade) Dose Ordered Sig/Saeed Route PRN Reason Start Time Stop Time Status Last Admin Dose Admin Divalproex Sodium (Depakote Sprinkles) 125 mg [id number] PO 09/23/19 17:00 09/23/19 19:51 I have reviewed the current psychotropics carefully including drug interactions. Risk benefit ratio favors no change other than as noted in my dictated progress note. Diagnosis: Problems: (1) Mood disorder (2) Impulse control disorder, unspecified (3) Impaired gait (4) Dementia in Alzheimer's disease with depression (5) Dementia in Alzheimer's disease with delusions KASSIDY POP MD Sep 23, 2019 20:06
[2019-09-23] MEDS: traZODone 50 MG TABLET. PO PRN (21:47)
[2019-09-23] MEDS: HYDROcodone/APAP 5/325MG 1 TAB TABLET PO PRN (23:28)
[2019-09-24 06:00] VITALS: BP 110/70
[2019-09-24] MEDS: ASPIRIN 81 MG TAB.CHEW PO SCH (08:20)
[2019-09-24] MEDS: DIVALPROEX 125 MG CAP.SPRINK PO SCH ×4 (08:20→21:00)
[2019-09-24] MEDS: CITALOPRAM 10 MG TABLET. PO SCH (08:20)
[2019-09-24] MEDS: PANTOPRAZOLE 40 MG TABLET. PO SCH (08:22)
[2019-09-24] MEDS: QUEtiapine 25 MG TABLET. PO SCH ×3 (08:22→17:00)
[2019-09-24] MEDS: traZODone 50 MG TABLET. PO SCH ×3 (08:22→17:00)
[2019-09-24] MEDS: LORazepam 1 MG TABLET PO SCH (12:36)
[2019-09-24 15:51] VITALS: BP 75/51
[2019-09-24 16:25] VITALS: BP 110/68
[2019-09-24 19:21] VITALS: BP 113/74
[2019-09-24] MEDS: MIRTAZAPINE 15 MG TABLET PO SCH (21:00)
[2019-09-24] MEDS: SENNOSIDES 8.6 MG TABLET PO SCH (21:00)
[2019-09-24] MEDS: traZODone 100 MG TABLET. PO SCH (21:00)
[2019-09-24 21:48] VITALS: BP 121/67
--- NOTE | 2019-09-24 21:55 | PDOC ---
Exam Note: Guero Note: Please also refer to the separate dictated note~for this date of service dictated separately.~Patient seen individually. Discussed the patient with Nursing staff reviewed the chart.~Reviewed interim history and current functioning. Reviewed vital signs,~Labs/ Radiology~and current medications noted below. Continue current treatment with the changes noted in the dictated addendum note Assessment: Vital Signs/I&O: Vital Signs Date Time Temp Pulse Resp B/P (MAP) Pulse Ox O2 Delivery O2 Flow Rate FiO2 09/24/19 21:48 97.0 90 17 121/67 (85) 97 Room Air I & O 09/23/19 09/23/19 09/24/19 15:00 23:00 07:00 Intake Total 720 ml 480 ml Balance 720 ml 480 ml Current Medications: I have reviewed the current psychotropics carefully including drug interactions. Risk benefit ratio favors no change other than as noted in my dictated progress note. Diagnosis: Problems: (1) Mood disorder (2) Anemia (3) Impulse control disorder, unspecified (4) Impaired gait (5) Dementia in Alzheimer's disease with depression (6) Dementia in Alzheimer's disease with delusions KASSIDY POP MD Sep 24, 2019 21:55
[2019-09-24 23:35] VITALS: BP 110/68
[2019-09-25] MEDS: IBUPROFEN 600 MG TABLET. PO PRN ×2 (01:27→19:58)
[2019-09-25] MEDS: HYDROcodone/APAP 5/325MG 1 TAB TABLET PO PRN (04:06)
[2019-09-25 05:59] VITALS: BP 108/65
[2019-09-25] MEDS: traZODone 50 MG TABLET. PO SCH ×3 (10:59→17:00)
[2019-09-25] MEDS: ASPIRIN 81 MG TAB.CHEW PO SCH (10:59)
[2019-09-25] MEDS: PANTOPRAZOLE 40 MG TABLET. PO SCH (11:00)
[2019-09-25] MEDS: DIVALPROEX 125 MG CAP.SPRINK PO SCH ×4 (11:00→19:58)
[2019-09-25] MEDS: CITALOPRAM 10 MG TABLET. PO SCH (11:01)
[2019-09-25] MEDS: QUEtiapine 25 MG TABLET. PO SCH ×3 (11:01→17:00)
[2019-09-25] MEDS: LORazepam 1 MG TABLET PO SCH (12:54)
[2019-09-25 16:13] VITALS: BP 114/71
[2019-09-25] MEDS: MIRTAZAPINE 15 MG TABLET PO SCH (19:58)
[2019-09-25] MEDS: traZODone 100 MG TABLET. PO SCH (19:58)
[2019-09-25] MEDS: SENNOSIDES 8.6 MG TABLET PO SCH (19:58)
--- NOTE | 2019-09-25 20:42 | PDOC ---
Exam Note: Guero Note: Please also refer to the separate dictated note~for this date of service dictated separately.~Patient seen individually. Discussed the patient with Nursing staff reviewed the chart.~Reviewed interim history and current functioning. Reviewed vital signs,~Labs/ Radiology~and current medications noted below. Continue current treatment with the changes noted in the dictated addendum note Assessment: Vital Signs/I&O: Vital Signs Date Time Temp Pulse Resp B/P (MAP) Pulse Ox O2 Delivery O2 Flow Rate FiO2 09/25/19 16:13 97.8 76 16 114/71 (85) 95 09/24/19 23:35 Room Air I & O 09/24/19 09/24/19 09/25/19 14:59 22:59 06:59 Intake Total 360 ml 0 ml Balance 360 ml 0 ml Current Medications: I have reviewed the current psychotropics carefully including drug interactions. Risk benefit ratio favors no change other than as noted in my dictated progress note. Diagnosis: Problems: (1) Mood disorder (2) Impulse control disorder, unspecified (3) Impaired gait (4) Dementia in Alzheimer's disease with depression (5) Dementia in Alzheimer's disease with delusions KASSIDY POP MD Sep 25, 2019 20:42
--- NOTE | 2019-09-25 21:58 | PN ---
DATE: 09/23/2019 PSYCHIATRIC PROGRESS NOTE This late entry 09/23/2019 covers elements not covered in my initial note. SUBJECTIVE: I met with the patient individually. The patient slept 7-1/2 hours previous night. Valproic acid level is 15. Sodium 147. She is currently on Depakote Sprinkles 125 mg b.i.d. She continues to be extremely hyperverbal, rambling in her speech, loud at times, repetitive. REVIEW OF SYSTEMS: Ambulation impaired, in wheelchair. No CV, , pulmonary, eye, ENT system symptoms on review. Reliability poor. MENTAL STATUS EXAM: Oriented to herself. Insight, judgment, recent and remote memory, attention, concentration, fund of knowledge poor, consistent with her diagnosis mentioned in my initial note. PLAN: Increase Depakote Sprinkles to 125 mg 4 times a day since the level is 15 at the current dosage. Check CBC, CMP, valproic acid level in 3 days. Rest unchanged for now. KASSIDY POP MD DR: SCOTT/omer JOB#: [id number] / [id number]
--- NOTE | 2019-09-25 22:27 | PN ---
DATE: 09/24/2019 PSYCHIATRIC PROGRESS NOTE This is a late entry date of service 09/24/2019 covers the elements not covered in my initial note. SUBJECTIVE: I met with the patient individually. The patient slept 8 hours previous night. The patient remains confused, rambling in her speech, repetitive. REVIEW OF SYSTEMS: No CV, , pulmonary, eye, ENT system symptoms on review. MENTAL STATUS EXAM: Oriented to herself. Insight, judgment, recent and remote memory, attention, concentration, fund of knowledge poor, consistent with her diagnosis mentioned in my initial note. PLAN: No change from initial note. Valproic acid level will be repeated on 09/26/2019 along with CBC, CMP, then adjust Depakote further thereafter. Maintain Seroquel, Ativan, trazodone, Remeron, and Celexa for now along with scheduled trazadone. MAN Jose Maria PPO MD DR: SCOTT/omer JOB#: [id number] / [id number]
[2019-09-26 06:16] VITALS: BP 151/90
[2019-09-26 06:27] LABS: BASO % 1 % (0-3); EOS # 0.2 x10^3/uL (0.0-0.7); EOS % 4 % (0-3); HEMATOCRIT 33.3 % (36.0-47.0); HEMOGLOBIN 11.1 g/dL (12.0-15.5); LYMPH # 1.4 x10^3/uL (1.0-4.8); LYMPH % 27 % (24-48); MEAN CORPUSCULAR HEMOGLOBIN 32 pg (25-35); MEAN CORPUSCULAR HGB CONC 33 g/dL (31-37); MEAN CORPUSCULAR VOLUME 94 fL (79-100); MONO # 0.4 x10^3/uL (0.0-1.1); MONO % 8 % (0-9); NEUT # 3.1 x10^3uL (1.8-7.7); NEUT % 61 % (31-73); PLATELET COUNT 235 x10^3/uL (140-400); RED BLOOD COUNT 3.53 x10^6/uL (3.50-5.40); RED CELL DISTRIBUTION WIDTH 13.8 % (11.5-14.5); WHITE BLOOD COUNT 5.1 x10^3/uL (4.0-11.0)
[2019-09-26 06:35] LABS: ALBUMIN 3.4 g/dL (3.4-5.0); ALBUMIN/GLOBULIN RATIO 0.7 (1.0-1.7); ALK PHOS 148 U/L (46-116); ALT (SGPT) 25 U/L (14-59); ANION GAP 7 (6-14); AST (SGOT) 21 U/L (15-37); BLOOD UREA NITROGEN 63 mg/dL (7-20); BUN/CREATININE RATIO 63 (6-20); CALCIUM 10.5 mg/dL (8.5-10.1); CARBON DIOXIDE 32 mmol/L (21-32); CHLORIDE 111 mmol/L (98-107); GFR 53.9; GLUCOSE 101 mg/dL (70-99); POTASSIUM 4.8 mmol/L (3.5-5.1); SODIUM 150 mmol/L (136-145); TOTAL BILIRUBIN 0.4 mg/dL (0.2-1.0)
[2019-09-26 06:45] LABS: VAL ACID 32 mcg/mL (50-100)
[2019-09-26] MEDS: traZODone 50 MG TABLET. PO SCH ×3 (09:00→17:26)
[2019-09-26] MEDS: CITALOPRAM 10 MG TABLET. PO SCH (09:00)
[2019-09-26] MEDS: PANTOPRAZOLE 40 MG TABLET. PO SCH (09:00)
[2019-09-26] MEDS: CHOLECALCIFEROL (VITAMIN D3) 50,000 UNIT CAPSULE PO SCH (09:00)
[2019-09-26] MEDS: ASPIRIN 81 MG TAB.CHEW PO SCH (09:00)
[2019-09-26] MEDS: QUEtiapine 25 MG TABLET. PO SCH ×3 (09:01→17:26)
[2019-09-26] MEDS: DIVALPROEX 125 MG CAP.SPRINK PO SCH ×4 (09:01→20:37)
[2019-09-26] MEDS: HYDROcodone/APAP 5/325MG 1 TAB TABLET PO PRN (09:02)
[2019-09-26] MEDS: LORazepam 1 MG TABLET PO SCH (13:17)
[2019-09-26] MEDS: IV DEXTROSE 5% 1,000 ML IV SCH (13:28)
[2019-09-26 16:12] VITALS: BP 127/57
[2019-09-26] MEDS: DOCUSATE SODIUM 100 MG CAPSULE PO SCH (20:37)
[2019-09-26] MEDS: traZODone 100 MG TABLET. PO SCH (20:37)
[2019-09-26] MEDS: MIRTAZAPINE 15 MG TABLET PO SCH (20:37)
[2019-09-26] MEDS: SENNOSIDES 8.6 MG TABLET PO SCH (20:38)
--- NOTE | 2019-09-26 20:56 | PDOC ---
Exam Note: Guero Note: Please also refer to the separate dictated note~for this date of service dictated separately.~Patient seen individually. Discussed the patient with Nursing staff reviewed the chart.~Reviewed interim history and current functioning. Reviewed vital signs,~Labs/ Radiology~and current medications noted below. Continue current treatment with the changes noted in the dictated addendum note Assessment: Vital Signs/I&O: Vital Signs Date Time Temp Pulse Resp B/P (MAP) Pulse Ox O2 Delivery O2 Flow Rate FiO2 09/26/19 16:12 98.1 89 19 127/57 (80) 96 09/24/19 23:35 Room Air I & O 09/25/19 09/25/19 09/26/19 15:00 23:00 07:00 Intake Total 480 ml 480 ml Balance 480 ml 480 ml Labs: Laboratory Tests Test 09/26/19 06:03 White Blood Count 5.1 x10^3/uL (4.0-11.0) Red Blood Count 3.53 x10^6/uL (3.50-5.40) Hemoglobin 11.1 g/dL (12.0-15.5) L Hematocrit 33.3 % (36.0-47.0) L Mean Corpuscular Volume 94 fL (79-100) Mean Corpuscular Hemoglobin 32 pg (25-35) Mean Corpuscular Hemoglobin Concent 33 g/dL (31-37) Red Cell Distribution Width 13.8 % (11.5-14.5) Platelet Count 235 x10^3/uL (140-400) Neutrophils (%) (Auto) 61 % (31-73) Lymphocytes (%) (Auto) 27 % (24-48) Monocytes (%) (Auto) 8 % (0-9) Eosinophils (%) (Auto) 4 % (0-3) H Basophils (%) (Auto) 1 % (0-3) Neutrophils # (Auto) 3.1 x10^3uL (1.8-7.7) Lymphocytes # (Auto) 1.4 x10^3/uL (1.0-4.8) Monocytes # (Auto) 0.4 x10^3/uL (0.0-1.1) Eosinophils # (Auto) 0.2 x10^3/uL (0.0-0.7) Basophils # (Auto) 0.0 x10^3/uL (0.0-0.2) Sodium Level 150 mmol/L (136-145) H Potassium Level 4.8 mmol/L (3.5-5.1) Chloride Level 111 mmol/L (98-107) H Carbon Dioxide Level 32 mmol/L (21-32) Anion Gap 7 (6-14) Blood Urea Nitrogen 63 mg/dL (7-20) H Creatinine 1.0 mg/dL (0.6-1.0) Estimated GFR (Cockcroft-Gault) 53.9 BUN/Creatinine Ratio 63 (6-20) H Glucose Level 101 mg/dL (70-99) H Calcium Level 10.5 mg/dL (8.5-10.1) H Total Bilirubin 0.4 mg/dL (0.2-1.0) Aspartate Amino Transferase (AST) 21 U/L (15-37) Alanine Aminotransferase (ALT) 25 U/L (14-59) Alkaline Phosphatase 148 U/L (46-116) H Total Protein 8.0 g/dL (6.4-8.2) Albumin 3.4 g/dL (3.4-5.0) Albumin/Globulin Ratio 0.7 (1.0-1.7) L Valproic Acid Level 32 mcg/mL (50-100) L Valproic Acid Last Dose Date 09/25/19 Valproic Acid Last Dose Time 2100 Current Medications: Meds: Current Medications Medications (Trade) Dose Ordered Sig/Saeed Route PRN Reason Start Time Stop Time Status Last Admin Dose Admin Dextrose 1,000 ml @ 100 mls/hr Q10H IV 09/26/19 13:45 09/26/19 13:28 Docusate Sodium (Colace) 100 mg BID PO 09/26/19 21:00 09/26/19 20:37 I have reviewed the current psychotropics carefully including drug interactions. Risk benefit ratio favors no change other than as noted in my dictated progress note. Diagnosis: Problems: (1) Gastroesophageal reflux disease (2) Mood disorder (3) Impulse control disorder, unspecified (4) Impaired gait (5) Dementia in Alzheimer's disease with depression (6) Dementia in Alzheimer's disease with delusions KASSIDY POP MD Sep 26, 2019 20:56
--- NOTE | 2019-09-26 22:20 | PN ---
DATE: 09/25/2019 PSYCHIATRIC PROGRESS NOTE. This late entry of 09/25/2019 covers the elements not covered in my initial note. SUBJECTIVE: I met with the patient in the evening. Overall, the patient remains rambling in her speech, repetitive, disorganized, confused, but less agitated. REVIEW OF SYSTEMS: Ambulation impaired, in Broda chair. No CV, , pulmonary, eye, ENT system symptoms on review. Reliability poor. MENTAL STATUS EXAM: Oriented to herself. Insight, judgment, recent and remote memory, attention, concentration, fund of knowledge poor, consistent with her diagnosis mentioned in my initial note. PLAN: No change from initial note. KASSIDY POP MD DR: SCOTT/omer JOB#: [id number] / [id number]
[2019-09-27] MEDS: IV DEXTROSE 5% 1,000 ML IV SCH ×3 (00:33→20:38)
[2019-09-27 05:46] VITALS: BP 110/75
[2019-09-27] MEDS: DOCUSATE SODIUM 100 MG CAPSULE PO SCH ×2 (09:09→20:37)
[2019-09-27] MEDS: DIVALPROEX 125 MG CAP.SPRINK PO SCH ×4 (09:09→20:36)
[2019-09-27] MEDS: traZODone 50 MG TABLET. PO SCH ×3 (09:10→16:56)
[2019-09-27] MEDS: ASPIRIN 81 MG TAB.CHEW PO SCH (09:10)
[2019-09-27] MEDS: QUEtiapine 25 MG TABLET. PO SCH ×3 (09:11→16:56)
[2019-09-27] MEDS: CITALOPRAM 10 MG TABLET. PO SCH (09:11)
[2019-09-27] MEDS: PANTOPRAZOLE 40 MG TABLET. PO SCH (09:11)
[2019-09-27] MEDS: POLYETHYLENE GLYCOL 3350 17 GM PACKET. PO SCH (09:12)
[2019-09-27] MEDS: HYDROcodone/APAP 5/325MG 1 TAB TABLET PO PRN (09:18)
[2019-09-27] MEDS: LORazepam 1 MG TABLET PO SCH (12:52)
[2019-09-27 15:49] VITALS: BP 95/61
[2019-09-27] MEDS: MIRTAZAPINE 15 MG TABLET PO SCH (20:37)
[2019-09-27] MEDS: SENNOSIDES 8.6 MG TABLET PO SCH (20:37)
[2019-09-27] MEDS: traZODone 100 MG TABLET. PO SCH (20:37)
--- NOTE | 2019-09-27 20:38 | PDOC ---
Exam Note: Guero Note: Please also refer to the separate dictated note~for this date of service dictated separately.~Patient seen individually. Discussed the patient with Nursing staff reviewed the chart.~Reviewed interim history and current functioning. Reviewed vital signs,~Labs/ Radiology~and current medications noted below. Continue current treatment with the changes noted in the dictated addendum note Assessment: Vital Signs/I&O: Vital Signs Date Time Temp Pulse Resp B/P (MAP) Pulse Ox O2 Delivery O2 Flow Rate FiO2 09/27/19 15:49 97.6 80 16 95/61 (72) 92 09/24/19 23:35 Room Air I & O 09/26/19 09/26/19 09/27/19 15:00 23:00 07:00 Intake Total 480 ml 0 ml 950 ml Balance 480 ml 0 ml 950 ml Current Medications: Meds: Current Medications Medications (Trade) Dose Ordered Sig/Saeed Route PRN Reason Start Time Stop Time Status Last Admin Dose Admin Docusate Sodium (Colace) 100 mg BID PO 09/26/19 21:00 09/27/19 09:09 Polyethylene Glycol (miraLAX) 17 gm DAILY PO 09/27/19 09:00 09/27/19 09:12 I have reviewed the current psychotropics carefully including drug interactions. Risk benefit ratio favors no change other than as noted in my dictated progress note. Diagnosis: Problems: (1) Mood disorder (2) Impulse control disorder, unspecified (3) Impaired gait (4) Dementia in Alzheimer's disease with depression (5) Dementia in Alzheimer's disease with delusions KASSIDY POP MD Sep 27, 2019 20:38
--- NOTE | 2019-09-27 21:11 | PN ---
DATE: 09/26/2019 PSYCHIATRIC PROGRESS NOTE This late entry 09/26/2019 covers elements not covered in my initial note. SUBJECTIVE: I met with the patient in the evening. Per MADY Yee, the patient slept 6-1/2 hours previous night. She was restless, yelling in the morning, took her meds crushed in pudding. Sodium and BUN are elevated, defer to Dr. Cordero. She has been started on IV fluids. She is trying to get out of the Broda chair, remains confused. REVIEW OF SYSTEMS: No CV, , pulmonary, eye, ENT system symptoms on review. Reliability poor. MENTAL STATUS EXAM: Oriented to herself. Insight, judgment, recent and remote memory, attention, concentration, fund of knowledge poor, consistent with her diagnosis mentioned in my initial note. PLAN: No change from initial note. Treat the dehydration. Rest per initial note. MAN Jose Maria POP MD DR: SCOTT/omer JOB#: [id number] / [id number]
[2019-09-27] MEDS ORDERED: DIVA125C2 PO (23:11)
[2019-09-27] MEDS ORDERED: DOCU-109 PO (23:12)
[2019-09-27] MEDS ORDERED: OLAN5TAB5 PO (23:14)
[2019-09-27] MEDS ORDERED: PANT40TA3 PO (23:15)
[2019-09-27] MEDS ORDERED: POLY17PO5 PO (23:16)
[2019-09-27] MEDS ORDERED: QUET25TA5 PO (23:17)
[2019-09-27] MEDS ORDERED: SENN8.6T11 PO (23:19)
[2019-09-27] MEDS ORDERED: TRAZ-86 PO (23:20)
[2019-09-28 06:06] VITALS: BP 137/80
[2019-09-28] MEDS: IV DEXTROSE 5% 1,000 ML IV SCH ×2 (07:29→17:31)
[2019-09-28] MEDS: traZODone 50 MG TABLET. PO SCH ×3 (08:34→17:10)
[2019-09-28] MEDS: CITALOPRAM 10 MG TABLET. PO SCH (08:34)
[2019-09-28] MEDS: QUEtiapine 25 MG TABLET. PO SCH ×3 (08:34→17:10)
[2019-09-28] MEDS: DOCUSATE SODIUM 100 MG CAPSULE PO SCH ×2 (08:34→19:48)
[2019-09-28] MEDS: ASPIRIN 81 MG TAB.CHEW PO SCH (08:34)
[2019-09-28] MEDS: POLYETHYLENE GLYCOL 3350 17 GM PACKET. PO SCH (08:34)
[2019-09-28] MEDS: DIVALPROEX 125 MG CAP.SPRINK PO SCH ×4 (08:34→19:48)
[2019-09-28] MEDS: PANTOPRAZOLE 40 MG TABLET. PO SCH (08:34)
[2019-09-28] MEDS: HYDROcodone/APAP 5/325MG 1 TAB TABLET PO PRN (08:36)
[2019-09-28 10:52] LABS: BASO % 0 % (0-3); EOS # 0.1 x10^3/uL (0.0-0.7); EOS % 2 % (0-3); HEMATOCRIT 29.4 % (36.0-47.0); HEMOGLOBIN 9.7 g/dL (12.0-15.5); LYMPH # 1.1 x10^3/uL (1.0-4.8); LYMPH % 20 % (24-48); MEAN CORPUSCULAR HEMOGLOBIN 31 pg (25-35); MEAN CORPUSCULAR HGB CONC 33 g/dL (31-37); MEAN CORPUSCULAR VOLUME 93 fL (79-100); MONO # 0.5 x10^3/uL (0.0-1.1); MONO % 9 % (0-9); NEUT # 3.7 x10^3uL (1.8-7.7); NEUT % 69 % (31-73); PLATELET COUNT 165 x10^3/uL (140-400); RED BLOOD COUNT 3.16 x10^6/uL (3.50-5.40); WHITE BLOOD COUNT 5.5 x10^3/uL (4.0-11.0)
[2019-09-28 11:13] LABS: ALBUMIN 2.8 g/dL (3.4-5.0); ALBUMIN/GLOBULIN RATIO 0.8 (1.0-1.7); CALCIUM 9.4 mg/dL (8.5-10.1); CREATININE 0.7 mg/dL (0.6-1.0); GFR 81.4; POTASSIUM 4.3 mmol/L (3.5-5.1); TOTAL BILIRUBIN 0.4 mg/dL (0.2-1.0); TOTAL PROTEIN 6.5 g/dL (6.4-8.2)
[2019-09-28] MEDS: LORazepam 1 MG TABLET PO SCH (12:09)
[2019-09-28 13:52] LABS: % ATYL 5 % (0-0); % BANDS 3 % (0-9); % EOS 4 % (0-5); % LYMPHS 12 % (24-48); % MONOS 5 % (0-10); % MYELOS 1 % (0-0); % SEGS 70 % (35-66)
[2019-09-28 13:54] LABS: PLT ESTIMATE ADEQUATE (ADEQUATE)
[2019-09-28 13:55] LABS: OVALOCYTES FEW
[2019-09-28 13:57] LABS: ACANTHOCYTES FEW
[2019-09-28 15:48] VITALS: BP 102/65
[2019-09-28] MEDS: SENNOSIDES 8.6 MG TABLET PO SCH (19:48)
[2019-09-28] MEDS: MIRTAZAPINE 15 MG TABLET PO SCH (19:48)
[2019-09-28] MEDS: traZODone 100 MG TABLET. PO SCH (19:48)
--- NOTE | 2019-09-28 19:58 | DS ---
DATE OF DISCHARGE: 09/28/2019 FINAL DIAGNOSES: AXIS I: 1. Major neurocognitive disorder, Alzheimer's, vascular with delusion, depression and behavioral disturbances. 2. Anxiety disorder, unspecified. 3. Impulse control disorder, unspecified. AXIS II: None. AXIS III: Recent urinary tract infection, anemia, gastroesophageal reflux disease, osteoarthritis, status post pulmonary embolism and also multiple falls and a fall risk. REASON FOR ADMISSION: This 74-year-old female was admitted to inpatient program at [facility] and apparently she was sent here from [facility]. The patient is a resident from [facility] and she was sent to the hospital because of increased agitation, confusion and being combative in the ER, biting staff, hollering, spitting and also threatening to hit staff and also have paranoid thinking and flight of ideas. HISTORY OF PRESENT ILLNESS: The patient has a history of dementia, most likely Alzheimer's and vascular type. The patient apparently was at [facility] in February 2019 and apparently she did fairly well. The staff has noticed increased confusion recently, also increased agitation, aggressive behaviors, not able to sleep well or decreased appetite and significant mood swings, also had UTI. The patient apparently failed outpatient treatment. Her behavior is considered dangerous and unmanageable at the facility. HOSPITAL COURSE: The patient had a physical exam, routine lab work including CBC, chem profile, urinalysis. Most of the lab work were within normal range except for decreased hemoglobin 9.7, RBC 3.16. The patient's BUN fluctuated since admission. Initially, it was 27, went up to 39, then 63 and prior to discharge it was 24. Apparently, this is the latest lab. The patient's creatinine level was normal. The patient's alkaline phosphatase was slightly elevated. The patient's Depakote level was 32. The patient's medications include Depakote 125 mg 4 times a day, Seroquel 12.5 mg t.i.d., trazodone 50 mg at night p.r.n., mirtazapine 15 mg at night, Celexa 10 mg daily. The patient was also on olanzapine 2.5 mg q. 2 hours p.r.n. The patient did fairly well during her stay here. The patient's behavior improved significantly. She is much more calmer. The patient did not have any side effects. AFTERCARE PLAN: The patient at the time of discharge medically stable. The patient was not exhibiting any major psychiatric issues. No evidence of any psychosis. Continues to have problems with cognitive deficits. The patient was not expressing any suicidal thoughts. The patient will return to [facility] and the patient will continue with the medication listed above and continue to see the psychiatrist and staff there. TREVER COE MD DR: LUCILLE/omer JOB#: [id number] / [id number]
--- NOTE | 2019-09-28 23:29 | PN ---
DATE: 09/27/2019 PSYCHIATRIC PROGRESS NOTE This late entry 09/27/2019 covers elements not covered in my initial note. SUBJECTIVE: I met with the patient in the evening. Per MADY Cardona, the patient slept 10 hours previous night. Sodium 150. She remains on IV fluids. Valproic acid level 32. Tentative discharge to [facility] on hospice care on . Discussed with social service staff. REVIEW OF SYSTEMS: Ambulation impaired, in wheelchair. No CV, , pulmonary, eye, ENT system symptoms on review. Reliability poor. MENTAL STATUS EXAM: Oriented to herself. Insight, judgment, recent and remote memory, attention, concentration, fund of knowledge poor, consistent with her diagnosis mentioned in my initial note. PLAN: No change from initial note. MAN Jose Maria POP MD DR: SCOTT/omer JOB#: [id number] / [id number]
[2019-09-29 06:08] VITALS: BP 146/91
[2019-09-29] MEDS: traZODone 50 MG TABLET. PO SCH (08:39)
[2019-09-29] MEDS: HYDROcodone/APAP 5/325MG 1 TAB TABLET PO PRN (08:39)
[2019-09-29] MEDS: PANTOPRAZOLE 40 MG TABLET. PO SCH (08:39)
[2019-09-29] MEDS: CITALOPRAM 10 MG TABLET. PO SCH (08:39)
[2019-09-29] MEDS: ASPIRIN 81 MG TAB.CHEW PO SCH (08:39)
[2019-09-29] MEDS: DIVALPROEX 125 MG CAP.SPRINK PO SCH (08:39)
[2019-09-29] MEDS: QUEtiapine 25 MG TABLET. PO SCH (08:40)
[2019-09-29] MEDS: DOCUSATE SODIUM 100 MG CAPSULE PO SCH (08:40)
[2019-09-29] MEDS: POLYETHYLENE GLYCOL 3350 17 GM PACKET. PO SCH (08:42)
== END 2019-09-29 12:00 | disposition hospice, inpatient (51) | DRG 57 ==
LOC: GEROPSY 16:55
PROVIDERS: ADMIT Psychiatry & Neurology Psychiatry; ATTEND Psychiatry & Neurology Psychiatry
DX: G30.9 Alzheimer's disease, unspecified (principal); F01.51 Vascular dementia, unspecified severity, with behavioral disturbance; F02.81 Dementia in other diseases classified elsewhere, unspecified severity, with behavioral disturbance; N39.0 Urinary tract infection, site not specified; F63.9 Impulse disorder, unspecified; F41.9 Anxiety disorder, unspecified; F22 Delusional disorders; F32.9 Major depressive disorder, single episode, unspecified; D64.9 Anemia, unspecified; F02.80 Dementia in other diseases classified elsewhere, unspecified severity, without behavioral disturbance, psychotic disturbance, mood disturbance, and anxiety; K21.9 Gastro-esophageal reflux disease without esophagitis; Z51.5 Encounter for palliative care; Z66 Do not resuscitate; Z79.899 Other long term (current) drug therapy; Z86.711 Personal history of pulmonary embolism; M19.90 Unspecified osteoarthritis, unspecified site; Z91.81 History of falling
CPT/HCPCS: 36415; 80053; 80061; 80164; 81001; 82140; 82306; 82607; 83036; 83540; 83550; 83735; 84436; 84443; 84480; 85007; 85025; 86592